=== PATIENT | male | born 1940 | race Caucasian/White ===

== ENCOUNTER → 2016-11-26 | Outpatient (CLI) | payer MEDICARE ==
[2016-11-25 11:07] VITALS: BP 137/80
[~2016-11-26] MED LIST: ASCO10002 PO; ASCO10006 PO; ATEN1TAB3 PO; CA C1TAB36 PO; CALC500T27 PO; CHOL400T2 PO; DABI150C PO; ESOM40CA PO; FURO40TA4 PO; GABA-585 PO; GADOBUTROL 10 MMOL/10 ML VIAL IV ONE; GINK120C PO; GLUC1CAP14 PO; GLUC1CAP57 PO; HYDR-2672 PO; HYDR-2762 PO; IBUP200T77 PO; ISOS30TA4 PO; KRIL1CAP PO; LACT1CAP21 PO; LANS15CA5 PO; LECI400C PO; LYSI500T PO; MAGIC MOUTHWASH; MULT1TAB52 PO; OMEG1CAP6 PO; OMEG500C PO; OXYC-250 PO; OXYC1TAB9 PO; PIPE4.5F2 IV; POTA10CA PO; POTA10TA10 PO; SELE200T10 PO; SUCR1ORA2 PO; TRAM50TA PO; VITA10004 PO; VITA1CAP PO; VITA400C34 PO; VITA400C6 PO; [UNRECOGNIZED DRUG - CODE] MM
--- NOTE | 2016-11-26 14:20 | KCIC ---
PROCEDURE MRI brain without and with contrast. HISTORY Pituitary macroadenoma TECHNIQUE Multiplanar, multi sequential pre and post-contrast imaging was performed of the head and pituitary gland. Contrast: 9 cc Gadavist COMPARISON June 27, 2014 noncontrast exam FINDINGS No appreciable residual enhancing pituitary tissue is identified, some cystic signal abnormality of the sella with slight suprasellar extent on the left as seen previously. This is slightly hyperintense comparing with other CSF signal intensity on the VIBE sequence. This is more hyperintense on the FLAIR sequence than previously. This measures on the order of 1.2 cm cc by 0.9 cm AP by 1.4 cm transverse. There is no evidence of recent infarct or intracranial mass effect. There is again mild involutional change. There are few small foci of T2 and FLAIR hyperintense signal abnormality of the supratentorial white matter mostly unchanged other than new small focus of the right connor radiata extending to margin of the right lateral ventricle. There is no new midline shift or extra-axial fluid collection. There has been lens surgery bilaterally. There is increased moderate to severe mid to anterior ethmoid air cell mucosal thickening, also increased moderate maxillary sinus mucosal thickening bilaterally greater on the right. There is increased mild sphenoid sinus and increased mild to moderate bilateral frontal sinus mucosal thickening. There is preservation of the major arterial intracranial flow voids at the skull base. Mastoid air cells are overall aerated, mild thickening bilaterally. Cerebellar tonsils are normal in location. There is preservation of the marrow signal of the clivus. IMPRESSION 1. No new enhancing sellar or suprasellar mass is identified. There is again cystic replacement in the region of the sella with suprasellar extent, now relative increased FLAIR signal which is nonspecific although may be due to increased proteinaceous component. 2. A few small foci of nonenhancing T2 and FLAIR hyperintense signal abnormality of the supratentorial white matter may be due to chronic microvascular ischemic disease, new small focus of the right connor radiata. 3. There is increased paranasal sinus mucosal thickening as stated Electronically signed by: Wesly Pozo MD (Nov 26, 2016 14:19:17)
== END | disposition home or self-care (01) ==
LOC: KCIC MRI 12:09
PROVIDERS: ATTEND Psychiatry & Neurology Neurology
DX: D35.2 Benign neoplasm of pituitary gland (principal)
CPT/HCPCS: 70553; 82565; A9585

== ENCOUNTER → 2017-02-17 | Outpatient (CLI) | payer MEDICARE ==
[2017-01-20 09:54] VITALS: BP 135/77
[~2017-02-17] MED LIST changes: -GADOBUTROL 10 MMOL/10 ML VIAL IV ONE
--- NOTE | 2017-02-17 13:46 | CARD ---
APPROVED REPORT EXAM: Two-dimensional and M-mode echocardiogram with Doppler and color Doppler. Other Information Quality : Average Rhythm : NSR INDICATION Cardiac Disease: CAD 2D DIMENSIONS RVDd3.5 (2.9-3.5cm)Left Atrium(2D)3.5 (1.6-4.0cm) IVSd1.0 (0.7-1.1cm)Aortic Root(2D)3.3 (2.0-3.7cm) LVDd3.6 (3.9-5.9cm)LVOT Diameter2.2 (1.8-2.4cm) PWd1.0 (0.7-1.1cm)LVDs2.5 (2.5-4.0cm) FS (%) 31.1 %SV31.6 ml LVEF(%)59.8 (>50%) Aortic Valve AoV Peak Nito.119.3cm/sAoV VTI28.9cm AO Peak GR.5.7mmHgLVOT Peak Nito.121.6cm/s LVOT VTI 30.68cmAO Mean GR.3mmHg VITA (VMAX)3.62mc1OYB (VTI)4.05cm2 Mitral Valve MV E Jkapftus23.7cm/sMV DECEL SFUF909eb MV A Rgfnpyzx043.4cm/sMV E Mean Gr.2mmHg MV GDR899vuN/A Ratio0.7 MV A Voinedtx674lmXPV (PHT)2.12cm2 TDI E/Lateral E'10.5E/Medial E'15.1 Pulmonary Valve PV Peak Llfivzbo57.6cm/sPV Peak Grad.3mmHg RVOT VTI11.2cm Tricuspid Valve TR P. Eqggtlzz574vn/sRAP CKTRSUJW1euXx TR Peak Gr.62vqAaJOPP14nyNw LEFT VENTRICLE The left ventricle is normal size. There is normal left ventricular wall thickness. Left ventricle sy stolic function is normal. The Ejection Fraction is 55-60%. There is normal LV segmental wall motion. Tissue Doppler imaging reveals mild left ventricular diastolic dysfunction. There is no ventricular septal defect visualized. RIGHT VENTRICLE The right ventricle is normal size. The right ventricular systolic function is mildly decreased. ATRIA The left atrium size is normal. The right atrium size is normal. The interatrial septum is intact wit h no evidence for an atrial septal defect or patent foramen ovale as noted on 2-D or Doppler imaging. AORTIC VALVE The aortic valve is moderately calcified but opens well. The aortic valve is trileaflet. Doppler and Color Flow revealed no significant aortic regurgitation. There is no significant aortic valvular sten osis. MITRAL VALVE Mitral annular calcification is mild. There is no mitral valve stenosis. Doppler and Color Flow revea led mild mitral regurgitation. TRICUSPID VALVE The tricuspid valve is normal in structure and function. Doppler and Color Flow revealed trace tricus pid regurgitation. The PA pressure was estimated at 23 mmHg. There is no tricuspid valve stenosis. PULMONIC VALVE The pulmonic valve is not well visualized. Doppler and Color Flow revealed no pulmonic valvular regur gitation. There is no pulmonic valvular stenosis. GREAT VESSELS The aortic root is normal in size. The IVC is normal in size and collapses >50% with inspiration. PERICARDIAL EFFUSION There is no evidence of significant pericardial effusion. Critical Notification Critical Value: No <Conclusion> Left ventricle systolic function is normal. The Ejection Fraction is 55-60%. There is normal LV segmental wall motion. Tissue Doppler imaging reveals mild left ventricular diastolic dysfunction. The right ventricular systolic function is mildly decreased. Doppler and Color Flow revealed mild mitral regurgitation.
== END | disposition home or self-care (01) ==
LOC: ECHO 07:33
PROVIDERS: ATTEND Internal Medicine Cardiovascular Disease
DX: I25.10 Atherosclerotic heart disease of native coronary artery without angina pectoris (principal); I08.3 Combined rheumatic disorders of mitral, aortic and tricuspid valves
CPT/HCPCS: 93306

== ENCOUNTER → 2017-08-16 | Outpatient (CLI) | payer MEDICARE ==
[2017-01-20 09:54] VITALS: BP 135/77
[~2017-08-16] MED LIST changes: +ASCO100020 PO; -ASCO10006 PO; -CALC500T27 PO; +CALC500T30 PO; -GLUC1CAP14 PO; +GLUCOSAMINE 1,1 EACH PO; -HYDR-2672 PO; +HYDR-2766 PO; -OXYC-250 PO; +OXYC-328 PO; -POTA10CA PO; -POTA10TA10 PO; +POTA10TA12 PO; +POTASSIUM CHLO10 MEQ PO; +REGADENOSON 0.4 MG/5 ML DISP.SYRIN. IV ONE; -SUCR1ORA2 PO; +SUCR1ORA5 PO; +VITA100022 PO; -VITA10004 PO; -VITA400C34 PO; +VITA400C37 PO
[2017-08-16] MEDS: REGADENOSON 0.4 MG/5 ML DISP.SYRIN. IV ONE (09:13)
--- NOTE | 2017-08-16 11:51 | RAD ---
APPROVED REPORT Test Type: Pharmacological Stress Nurse/Tech: [facility] Test Indications: CAD Cardiac History: HTN, CAD Medications: See EMR Medical History: See EMR Resting ECG: SB w/ 1 degree AVB Resting Heart Rate: 58 bpm Resting Blood Pressure: 146/76mmHg Pretest Chest Pain: No chest pain Nurse/Tech Notes S1,S2, denied CP, SOA, lungs CTA Consent: The procedure was explained to the patient in lay terms. Informed consent was witnessed. Fernando eout was entered into [employer]. History and Stress Test performed by [facility]. Details Pharmacologic stress testing was performed using 0.4mg per 5ml of regadenoson given intravenously ove r 7-10 seconds. Stress Symptoms slight tightness in midsternal chest, quickly subsided POST EXERCISE Reason for Termination: Infusion complete Max HR: 78 bpm Max Blood Pressure: 158/82mmHg Blood Pressure response to exercise: Normal blood pressure response during stress. Heart Rate response to exercise: Normal Chest Pain: No. Arrhythmia: No. ST Change: No. INTERPRETATION Stress EKG Conclusion: Baseline EKG showed sinus rhythm. No ischemic changes at peak stress. No arr hythmias. Imaging Protocol IMAGE PROTOCOL: Rest Tc-99m/stress Tc-99m 1 day Rest: Stress: Viability: Radiopharm.Tc99m AucxbagjaXe74y Sestamibi Dose10.4mCi 32.3mCi Duration 15min. 10min. Img Date 08/16/2017 08/16/2017 Inj-Img Lflt24adk. 60min. Rest Admin Site:IV - Right AntecubitalAdministrator:MOMO Bello Stress Admin Site: IV - Right AntecubitalAdministrator: Julienne Montero, RT (R)(N) STRESS DATA End Diast. Vol.65.0mlAv. Heart Rate59.0bpm End Syst. Vol.7.0mlCO Index BSA0.0L/min Myocardial Sqvy708.0gEject. Vphhbnbf59.0% Stress Rates Pk. Fill Rate2.53EDV/secLVtime Pk. Fill 152.57msec Pk. Empty Rate3.78ESV/secLVtime Pk. Dqxmb566.34msec 11/16 Pk. Fill1.59EDV/sec Stress Scores Regional WT1.00Summed WT6.00 Regional WM0.00Summed WM0.00 Study quality was good. Left Ventricular size was Normal at Rest and Stress. Lung uptake was Normal. Left Ventricular ejection fraction is 89%. The rest and stress images show normal perfusion, normal contraction and thickening. LV Perf. Quant 17 Seg. SSS2.00 17 Seg. SRS4.00 17 Seg. SDS0.00 Stress Defect Extent (% LAD)0.00Rest Defect Extent (% LAD)0.00Rev. Defect Extent (% LAD)0.00 Stress Defect Extent (% LCX) 18.80Rest Defect Extent (% LCX)22.50Rev. Defect Extent (% LCX)0.00 Stress Defect Extent (% RCA)0.00Rest Defect Extent (% RCA)0.00Rev. Defect Extent (% RCA)0.00 Stress Defect Extent (% ENRIQUE)4.60Rest Defect Extent (% ENRIQUE)5.70Rev. Defect Extent (% ENRIQUE)0.00 Conclusion 1. Regadenoson cardioisotope stress test did not show any evidence of ischemia or infarct. 2. Normal left ventricular systolic function with ejection fraction calculated at 89%. 3. Low risk for cardiac events.
== END | disposition home or self-care (01) ==
LOC: NM 07:23
PROVIDERS: ATTEND Internal Medicine Cardiovascular Disease
DX: I25.10 Atherosclerotic heart disease of native coronary artery without angina pectoris (principal); I49.5 Sick sinus syndrome; I10 Essential (primary) hypertension; Z79.01 Long term (current) use of anticoagulants
CPT/HCPCS: 78452; 93017; 96374; 96375; 96376; A9500; J2785

== ENCOUNTER → 2017-08-18 | Outpatient (CLI) | payer MEDICARE ==
[2017-01-20 09:54] VITALS: BP 135/77
[~2017-08-18] MED LIST changes: -REGADENOSON 0.4 MG/5 ML DISP.SYRIN. IV ONE
== END | disposition home or self-care (01) ==
LOC: PMGWOUND 07:51
PROVIDERS: ATTEND Emergency Medicine Undersea and Hyperbaric Medicine
DX: L97.214 Non-pressure chronic ulcer of right calf with necrosis of bone (principal); I25.10 Atherosclerotic heart disease of native coronary artery without angina pectoris; I10 Essential (primary) hypertension
CPT/HCPCS: 99214

== ENCOUNTER → 2018-01-12 | Outpatient (CLI) | payer MEDICARE | END | disposition home or self-care (01) | LOC: PMGWOUND 08:54 | DX: L97.214 Non-pressure chronic ulcer of right calf with necrosis of bone (principal); I25.10 Atherosclerotic heart disease of native coronary artery without angina pectoris; I10 Essential (primary) hypertension; I49.5 Sick sinus syndrome; Z79.01 Long term (current) use of anticoagulants | CPT/HCPCS: 99214 ==

== ENCOUNTER → 2018-08-23 | Outpatient (CLI) | payer MEDICARE ==
[2017-01-20 09:54] VITALS: BP 135/77
[~2018-08-23] MED LIST changes: +OXYC-411 PO; -OXYC1TAB9 PO; -POTASSIUM CHLO10 MEQ PO
--- NOTE | 2018-08-23 09:54 | CARD ---
MR#: [id number] Date of Study: 08/23/2018 Ordering Physician: CED CARDENAS, Referring Physician: CED CARDENAS Tech: Subha Washington APPROVED REPORT EXAM: Two-dimensional and M-mode echocardiogram with Doppler and color Doppler. Other Information Quality : Average Technically limited study due to body habitus. INDICATION CAD RISK FACTORS Hypertension 2D DIMENSIONS Left Atrium(2D)3.3 (1.6-4.0cm)IVSd1.3 (0.7-1.1cm) Aortic Root(2D)3.3 (2.0-3.7cm)LVDd4.3 (3.9-5.9cm) LVOT Diameter2.0 (1.8-2.4cm)PWd1.2 (0.7-1.1cm) IVSs2.9 (0.8-1.2cm) Aortic Valve AoV Peak Nito.137.7cm/sAoV VTI31.2cm AO Peak GR.7.6mmHgLVOT Peak Nito.103.6cm/s LVOT VTI 28.00cmAO Mean GR.4mmHg VITA (VMAX)1.62tj3XFW (VTI)2.95cm2 Mitral Valve MV E Xgdyjgce76.0cm/sMV DECEL MFEU385xt MV A Yakssauj139.2cm/sMV TQJ84gb E/A Ratio0.7MVA (PHT)2.91cm2 TDI E/Lateral E'11.9E/Medial E'12.4 Pulmonary Valve PV Peak Eksaolxg971.4cm/sPV Peak Grad.4mmHg Tricuspid Valve TR P. Xaiuhpag500sb/sRAP LLUCBGZG43spOy TR Peak Gr.60ixExSZSP10vjNu LEFT VENTRICLE The left ventricle is normal size. There is borderline concentric left ventricular hypertrophy. The l eft ventricular systolic function is normal and the ejection fraction is within normal range. The Eje ction Fraction is >55%. There is normal LV segmental wall motion. Transmitral Doppler flow pattern is Grade I-abnormal relaxation pattern. No left ventricle thrombus noted on this study. RIGHT VENTRICLE The right ventricle is normal size. There is normal right ventricular wall thickness. The right ventr icular systolic function is normal. ATRIA The left atrium size is normal. The right atrium size is normal. The interatrial septum is intact wit h no evidence for an atrial septal defect or patent foramen ovale as noted on 2-D or Doppler imaging. AORTIC VALVE The aortic valve is mildly and moderately calcified with mildly restricted leaflet motion. Doppler an d Color Flow revealed trace aortic regurgitation. There is no significant aortic valvular stenosis. MITRAL VALVE The mitral valve is thickened but opens well. There is no mitral valve stenosis. Doppler and Color-fl ow revealed trace mitral regurgitation. TRICUSPID VALVE The tricuspid valve is not well visualized. Doppler and Color Flow revealed trace tricuspid regurgita tion. There is no tricuspid valve stenosis. PULMONIC VALVE The pulmonic valve is not well visualized. Doppler and Color Flow revealed no pulmonic valvular regur gitation. There is no pulmonic valvular stenosis. GREAT VESSELS The aortic root is normal in size. The IVC is normal in size and collapses <50% with inspiration. PERICARDIAL EFFUSION There is no evidence of significant pericardial effusion. Critical Notification Critical Value: No <Conclusion> The left ventricular systolic function is normal and the ejection fraction is within normal range. Th e Ejection Fraction is >55%. There is normal LV segmental wall motion. Signed by : Andre Chapin, Electronically Approved : 08/23/2018 09:53:15
== END | disposition home or self-care (01) ==
LOC: ECHO 07:57
PROVIDERS: ATTEND Internal Medicine Cardiovascular Disease
DX: I25.10 Atherosclerotic heart disease of native coronary artery without angina pectoris (principal); I10 Essential (primary) hypertension
CPT/HCPCS: 93306

== ENCOUNTER → 2018-08-29 | Outpatient (CLI) | payer MEDICARE ==
[2017-01-20 09:54] VITALS: BP 135/77
--- NOTE | 2018-08-29 14:58 | RAD ---
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 FINDINGS: There is no fracture, dislocation, or acute osseous abnormality identified. Joints and soft tissues are grossly unremarkable. A small calcaneal bone spur is present. No radiopaque foreign bodies are seen. No dystrophic calcifications are evident. The ankle mortise is symmetric. IMPRESSION: 1. No acute osseous abnormality. Electronically signed by: Ten Amos MD (08/29/2018 2:55 PM) [facility]
--- NOTE | 2018-08-29 16:54 | RAD ---
DUPLEX SONOGRAPHY OF THE PERIPHERAL ARTERIAL SYSTEM OF THE RIGHT LOWER EXTREMITY Clinical indications: Nonhealing wound of the right lower extremity. Findings: Duplex sonography of the peripheral arterial system of the right lower extremity including dos santos scale and color flow and spectral waveform analysis was performed. There is calcified plaque within the femoral and popliteal arteries. Biphasic waveforms are seen. No occlusive disease is seen. No flow-limiting stenosis is identified. The measurements were performed using the NASCET criteria. Peak systolic flow velocities are as follows: Right leg: common femoral artery- 109 cm/sec, profunda femoral artery -67 cm/sec, proximal superficial femoral artery -74 cm/sec, mid superficial femoral artery -50 cm/sec, distal superficial femoral artery- 52 cm/sec, popliteal artery -75 cm/sec, posterior tibial artery- 114 cm/sec, peroneal artery- 68 cm/sec, anterior tibial artery- 42 cm/sec, dorsalis pedis artery -46 cm/sec. Impression: No occlusive disease or flow-limiting stenosis is evident. Electronically signed by: Dru Mai MD (08/29/2018 4:50 PM) [facility]
== END | disposition home or self-care (01) ==
LOC: PMGWOUND 13:03
PROVIDERS: ATTEND Emergency Medicine Undersea and Hyperbaric Medicine
DX: I87.331 Chronic venous hypertension (idiopathic) with ulcer and inflammation of right lower extremity (principal); L97.214 Non-pressure chronic ulcer of right calf with necrosis of bone; I25.10 Atherosclerotic heart disease of native coronary artery without angina pectoris
CPT/HCPCS: 73610; 93923; 99214; G0463

== ENCOUNTER → 2018-09-04 | Outpatient (CLI) | payer MEDICARE ==
[2017-01-20 09:54] VITALS: BP 135/77
== END | disposition home or self-care (01) ==
LOC: PMGWOUND 11:42
PROVIDERS: ATTEND Emergency Medicine Undersea and Hyperbaric Medicine
DX: I87.331 Chronic venous hypertension (idiopathic) with ulcer and inflammation of right lower extremity (principal); L97.212 Non-pressure chronic ulcer of right calf with fat layer exposed
CPT/HCPCS: 99213

== ENCOUNTER → 2018-09-12 | Outpatient (CLI) | payer MEDICARE ==
[2017-01-20 09:54] VITALS: BP 135/77
== END | disposition home or self-care (01) ==
LOC: PMGWOUND 09:00
PROVIDERS: ATTEND Emergency Medicine Undersea and Hyperbaric Medicine
DX: I87.331 Chronic venous hypertension (idiopathic) with ulcer and inflammation of right lower extremity (principal); L97.212 Non-pressure chronic ulcer of right calf with fat layer exposed; I10 Essential (primary) hypertension; I25.10 Atherosclerotic heart disease of native coronary artery without angina pectoris
CPT/HCPCS: 99214; G0463

== ENCOUNTER → 2018-09-18 | Outpatient (CLI) | payer MEDICARE ==
[2017-01-20 09:54] VITALS: BP 135/77
== END | disposition home or self-care (01) ==
LOC: PMGWOUND 08:57
PROVIDERS: ATTEND Emergency Medicine Undersea and Hyperbaric Medicine
DX: I87.331 Chronic venous hypertension (idiopathic) with ulcer and inflammation of right lower extremity (principal); L97.212 Non-pressure chronic ulcer of right calf with fat layer exposed; I25.10 Atherosclerotic heart disease of native coronary artery without angina pectoris
CPT/HCPCS: 99213; 99214; G0463

== ENCOUNTER → 2018-09-25 | Outpatient (CLI) | payer MEDICARE ==
[2017-01-20 09:54] VITALS: BP 135/77
== END | disposition home or self-care (01) ==
LOC: PMGWOUND 09:06
PROVIDERS: ATTEND Emergency Medicine Undersea and Hyperbaric Medicine
DX: I87.331 Chronic venous hypertension (idiopathic) with ulcer and inflammation of right lower extremity (principal); L97.212 Non-pressure chronic ulcer of right calf with fat layer exposed
CPT/HCPCS: 29581

== ENCOUNTER → 2018-09-28 | Outpatient (CLI) | payer MEDICARE ==
[2017-01-20 09:54] VITALS: BP 135/77
== END | disposition home or self-care (01) ==
LOC: PMGWOUND 11:27
PROVIDERS: ATTEND Emergency Medicine Undersea and Hyperbaric Medicine
DX: I87.331 Chronic venous hypertension (idiopathic) with ulcer and inflammation of right lower extremity (principal); L97.212 Non-pressure chronic ulcer of right calf with fat layer exposed; I25.10 Atherosclerotic heart disease of native coronary artery without angina pectoris
CPT/HCPCS: 29581

== ENCOUNTER → 2018-10-03 | Outpatient (CLI) | payer MEDICARE ==
[2017-01-20 09:54] VITALS: BP 135/77
== END | disposition home or self-care (01) ==
LOC: PMGWOUND 07:48
PROVIDERS: ATTEND Emergency Medicine Undersea and Hyperbaric Medicine
DX: I87.331 Chronic venous hypertension (idiopathic) with ulcer and inflammation of right lower extremity (principal); L97.212 Non-pressure chronic ulcer of right calf with fat layer exposed; I25.10 Atherosclerotic heart disease of native coronary artery without angina pectoris
CPT/HCPCS: 99214; G0463

== ENCOUNTER → 2018-10-10 | Outpatient (CLI) | payer MEDICARE ==
[2017-01-20 09:54] VITALS: BP 135/77
[~2018-10-10] MED LIST changes: -HYDR-2762 PO; +HYDR-2765 PO; -HYDR-2766 PO; +HYDR-2769 PO; -OXYC-328 PO; +OXYC1TAB22 PO
== END | disposition home or self-care (01) ==
LOC: PMGWOUND 07:54
PROVIDERS: ATTEND Emergency Medicine Undersea and Hyperbaric Medicine
DX: I87.331 Chronic venous hypertension (idiopathic) with ulcer and inflammation of right lower extremity (principal); L97.212 Non-pressure chronic ulcer of right calf with fat layer exposed; I25.10 Atherosclerotic heart disease of native coronary artery without angina pectoris
CPT/HCPCS: 99214; G0463

== ENCOUNTER → 2018-10-31 | Outpatient (CLI) | payer MEDICARE ==
[2017-01-20 09:54] VITALS: BP 135/77
== END | disposition home or self-care (01) ==
LOC: PMGWOUND 09:03
PROVIDERS: ATTEND Emergency Medicine Undersea and Hyperbaric Medicine
DX: L97.818 Non-pressure chronic ulcer of other part of right lower leg with other specified severity (principal); I10 Essential (primary) hypertension
CPT/HCPCS: 99213

== ENCOUNTER 2019-01-20 15:04 | Inpatient (IN) | payer MEDICARE ==
[~2019-01-20] VITALS: Ht 182.9 cm; Wt 93.0 kg
[2019-01-20] MEDS ORDERED: DIPHTH,PERTUSS(ACELL),TET TOX 0.5 ML DISP.SYRIN. VAX IM ONE (16:00)
[2019-01-20] MEDS ORDERED: LIDOCAINE 1% Multi-Dose 20 ML VIAL. INJ ONE (16:00)
--- NOTE | 2019-01-20 16:25 | PHYS DOC ---
Past Medical History Past Medical History: Cancer, DVT, High Cholesterol, Hypertension Past Surgical History: Cholecystectomy, Other Additional Past Surgical Histo: HERNIA, BILAT ROTATOR CUFFS, CANCER, KNEE Alcohol Use: None Drug Use: None Adult General Chief Complaint Chief Complaint: LACERATION/AVULSION HPI HPI Patient is a 78 year old male who presents complaining of head injury. Patient slipped on wet bricks this afternoon, less than an hour prior to arrival, hitting his head. There was no loss of consciousness. No nausea, no change in vision. No syncopal episode. No chest pain or palpitations area did he also complains of some left knee discomfort with the fall.[] Review of Systems Review of Systems Constitutional: Denies fever or chills [] Eyes: Denies change in visual acuity, redness, or eye pain [] HENT: Denies nasal congestion or sore throat [] Respiratory: Denies cough or shortness of breath [] Cardiovascular: No chest pain or palpitations[] GI: Denies abdominal pain, nausea, vomiting, bloody stools or diarrhea [] : Denies dysuria or hematuria [] Musculoskeletal: Denies back pain, see history of present illness[] Integument: Denies rash or skin lesions, see history of present illness regarding the laceration [] Neurologic: Denies headache, focal weakness or sensory changes [] Endocrine: Denies polyuria or polydipsia [] All other systems were reviewed and found to be within normal limits, except as documented in this note. Current Medications Current Medications Current Medications Medications (Trade) Dose Ordered Sig/Chloé Start Time Stop Time Status Last Admin Dose Admin Diphtheria/ Tetanus/Acell Pertussis (Boostrix) 0.5 ml ONCE ONCE 01/20/19 16:00 01/20/19 16:01 DC 01/20/19 16:40 0.5 ML Lidocaine HCl (Lidocaine 1% 20ml Vial) 20 ml 1X ONCE 01/20/19 16:00 01/20/19 16:01 DC 01/20/19 16:38 20 ML Allergies Allergies Allergies Coded Allergies Type Severity Reaction Last Updated Verified No Known Medication Allergies Allergy Unknown 11/09/16 Yes Physical Exam Physical Exam Constitutional: Well developed, well nourished, no acute distress, non-toxic appearance. [] HENT: Normocephalic, laceration that is transverse across the top of his head., bilateral external ears normal, TMs are clear, no blood, no fluid, oropharynx moist, no oral exudates, nose normal. [] Eyes: PERRLA, EOMI, conjunctiva normal, no discharge. [] Neck: Normal range of motion, no tenderness, supple, no stridor. [] Cardiovascular:Heart rate regular rhythm, no murmur [] Lungs & Thorax: Bilateral breath sounds clear to auscultation [] Abdomen: Bowel sounds normal, soft, no tenderness, no masses, no pulsatile masses. [] Skin: Warm, dry, no erythema, no rash. [] Back: No tenderness, no CVA tenderness. [] Extremities: tenderness diffusely around the left knee, full active range of motion, no laxity. A joint above and below the left knee were evaluated and were normal. no cyanosis, no clubbing, ROM intact, no edema. [] Neurologic: Alert and oriented X 3, normal motor function, normal sensory function, no focal deficits noted. [] Psychologic: Affect normal, judgement normal, mood normal. [] Current Patient Data Vital Signs Vital Signs Date Time Temp Pulse Resp B/P (MAP) Pulse Ox O2 Delivery O2 Flow Rate FiO2 01/20/19 15:35 96.7 84 18 168/96 (120) 94 Room Air 96.7 EKG EKG [] Radiology/Procedures Radiology/Procedures Left knee x-rays 3 views HISTORY: Left knee pain after a fall. FINDINGS: Only apparent on the oblique view there is a transverse linear subcortical lucency of the medial tibial plateau diameter apparent on the oblique view, and not apparent on the AP or lateral views, it is uncertain if this is a artifact along the surface of an osteophyte of the tibial plateau or if this represents a subcortical acute traumatic fracture. Femoral condyles, patella and fibula intact at the knee. Ossification cortex nonweightbearing medial femoral condyle near the attachment of the medial collateral ligament likely due to old injury. IMPRESSION: Transverse linear subcortical lucency medial tibial plateau on the apparent on the oblique view, a fracture is not excluded, as described above. CT head without contrast. CT cervical spine without contrast. PQRS statement: CT scans at this facility use dose reduction including either automated exposure control, iterative reconstructions, and /or weight based radiation dosing via mA and kV modification when appropriate to reduce radiation dose to as low as reasonably achievable. HISTORY: Head pain and neck pain after fall. Head injury. TECHNIQUE: Noncontrast imaging of the head and cervical spine with multiplanar reconstructions was acquired. CT head findings: No intracranial hemorrhage, mass, hydrocephalus, extra-axial fluid collections or infarction. There is a laceration of the frontal scalp at the vertex, no scalp hematoma evident. No skull fracture or calvarial fracture. Imaged mastoids and orbits are intact. IMPRESSION: No acute intracranial CT abnormality. Frontal scalp laceration. No calvarial fracture. CT cervical spine findings: There is an acute traumatic nondisplaced fracture of the right C1 lamina which could be in the region where the right vertebral artery crosses, and arterial injury could be further assessed with CT angiography. There is a transverse oriented acute type II C2 dens fracture which is posterior distracted by 1.5 mm. There is mild hyperdense thickening of the C1-C2 joint capsule which could be degenerative or could represent mild intracapsular hemorrhage, no gross evidence of bony canal stenosis. The remainder of the cervical spine demonstrates no fracture. There is 2 mm anterolisthesis C6 on C7 associated with disc disease and facet arthritis. Disc bulges, endplate, uncovertebral facet spurs with spinal canal and neural foraminal stenoses at several levels. Lung apices and paraspinal tissues are unremarkable. IMPRESSION: 1. Acute traumatic type II C2 dens fracture as described above. 2. Acute traumatic nondisplaced right C1 lamina fracture as described above.[] Course & Med Decision Making Course & Med Decision Making Pertinent Labs and Imaging studies reviewed. (See chart for details) ED course: Patient arrived, was placed in a cervical collar and placed in bed, and tolerated exam well. He was transported to and from [place] with any complications. He had his scalp laceration repaired with any complications. After the return of the CT findings, consultation was made with the neurosurgeon who requested a CTA of the neck due to the course of the vertebral artery which was ordered along with laboratory studies. Due to the findings on the knee x-ray a CT of the knee was additionally ordered and consultation was made with orthopedic surgery service. Consultation was made with hospitalist service for admission and they graciously admitted him. Findings were discussed with patient and family who voiced understanding. All questions were answered.[] Dragon Disclaimer Dragon Disclaimer This electronic medical record was generated, in whole or in part, using a voice recognition dictation system. Departure Departure Impression: Primary Impression: C1 cervical fracture Additional Impressions: Dens fracture Tibial plateau fracture Disposition: 09 ADMITTED INPATIENT Admitting Physician: Other Condition: IMPROVED Referrals: JASON EDWARDS MD (PCP) Laceration Repair Lac Repair Indication: [] Procedure: The patient was placed in the appropriate position and anesthesia around the was provided with 1% lidocaine]. The area was then cleansed. The laceration was closed with 6 narda. Total repaired wound length: 3.5 cm. Other Items: [OTHER ITEMS] The patient tolerated the procedure well. Complications: None. Problem Qualifiers Primary Impression: C1 cervical fracture Encounter type: initial encounter Fracture type: closed Fracture morphology : unspecified fracture morphology Fracture alignment: nondisplaced Qualified Codes: S12.001A - Unspecified nondisplaced fracture of first cervical vertebra, initial encounter for closed fracture Additional Impressions: Dens fracture Encounter type: initial encounter Fracture type: closed Qualified Codes: S12.100A - Unspecified displaced fracture of second cervical vertebra, initial encounter for closed fracture Tibial plateau fracture Encounter type: initial encounter Fracture type: closed Laterality: left Qualified Codes: S82.142A - Displaced bicondylar fracture of left tibia, initial encounter for closed fracture TG FITZGERALD DO Jan 20, 2019 16:25
--- NOTE | 2019-01-20 16:46 | RAD ---
CT head without contrast. CT cervical spine without contrast. PQRS statement: CT scans at this facility use dose reduction including either automated exposure control, iterative reconstructions, and /or weight based radiation dosing via mA and kV modification when appropriate to reduce radiation dose to as low as reasonably achievable. HISTORY: Head pain and neck pain after fall. Head injury. TECHNIQUE: Noncontrast imaging of the head and cervical spine with multiplanar reconstructions was acquired. CT head findings: No intracranial hemorrhage, mass, hydrocephalus, extra-axial fluid collections or infarction. There is a laceration of the frontal scalp at the vertex, no scalp hematoma evident. No skull fracture or calvarial fracture. Imaged mastoids and orbits are intact. IMPRESSION: No acute intracranial CT abnormality. Frontal scalp laceration. No calvarial fracture. CT cervical spine findings: There is an acute traumatic nondisplaced fracture of the right C1 lamina which could be in the region where the right vertebral artery crosses, and arterial injury could be further assessed with CT angiography. There is a transverse oriented acute type II C2 dens fracture which is posterior distracted by 1.5 mm. There is mild hyperdense thickening of the C1-C2 joint capsule which could be degenerative or could represent mild intracapsular hemorrhage, no gross evidence of bony canal stenosis. The remainder of the cervical spine demonstrates no fracture. There is 2 mm anterolisthesis C6 on C7 associated with disc disease and facet arthritis. Disc bulges, endplate, uncovertebral facet spurs with spinal canal and neural foraminal stenoses at several levels. Lung apices and paraspinal tissues are unremarkable. IMPRESSION: 1. Acute traumatic type II C2 dens fracture as described above. 2. Acute traumatic nondisplaced right C1 lamina fracture as described above. Critical results called to Dr. Hinkle at 1 4:42 PM January 20, 2019. Electronically signed by: Amrit Cruz MD (01/20/2019 4:43 PM) [facility]
--- NOTE | 2019-01-20 16:58 | RAD ---
Left knee x-rays 3 views HISTORY: Left knee pain after a fall. FINDINGS: Only apparent on the oblique view there is a transverse linear subcortical lucency of the medial tibial plateau diameter apparent on the oblique view, and not apparent on the AP or lateral views, it is uncertain if this is a artifact along the surface of an osteophyte of the tibial plateau or if this represents a subcortical acute traumatic fracture. Femoral condyles, patella and fibula intact at the knee. Ossification cortex nonweightbearing medial femoral condyle near the attachment of the medial collateral ligament likely due to old injury. IMPRESSION: Transverse linear subcortical lucency medial tibial plateau on the apparent on the oblique view, a fracture is not excluded, as described above. Electronically signed by: Amrit Cruz MD (01/20/2019 4:56 PM) [id number]
[2019-01-20 17:37] LABS: BASO # 0.1 x10^3/uL (0.0-0.2); BASO % 1 % (0-3); EOS # 0.2 x10^3/uL (0.0-0.7); EOS % 2 % (0-3); HEMATOCRIT 48.2 % (39.0-53.0); HEMOGLOBIN 16.8 g/dL (13.0-17.5); LYMPH # 2.4 x10^3/uL (1.0-4.8); LYMPH % 24 % (24-48); MEAN CORPUSCULAR HEMOGLOBIN 32 pg (25-35); MEAN CORPUSCULAR HGB CONC 35 g/dL (31-37); MEAN CORPUSCULAR VOLUME 93 fL (79-100); MONO # 1.6 x10^3/uL (0.0-1.1); MONO % 15 % (0-9); NEUT # 5.9 x10^3uL (1.8-7.7); NEUT % 58 % (31-73); PLATELET COUNT 160 x10^3/uL (140-400); RED BLOOD COUNT 5.21 x10^6/uL (4.30-5.70); RED CELL DISTRIBUTION WIDTH 13.7 % (11.5-14.5); WHITE BLOOD COUNT 10.2 x10^3/uL (4.0-11.0)
--- NOTE | 2019-01-20 17:42 | PDOC1 ---
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 Patient slipped on wet bricks this afternoon, less than an hour prior to arrival , hitting his head. There was no loss of consciousness. No nausea, no change in vision. No syncopal episode. No chest pain or palpitations area did he also complains of some left knee discomfort with the fall. He received 6 narda across the crown of his head in the ED and underwent trauma series of head and neck revealing an acute traumatic type II C2 dens fracture and nondisplaced right C1 lamina fracture and so was not cleared from his c-collar. He had left knee x-ray revealing a transverse linear subcortical lucency on the medial tibial plateau, which could also be a fracture. He was called for admission for further care of pain and his multiple fractures. Past Medical History Cardiovascular: HTN, Other Pulmonary: No pertinent hx CENTRAL NERVOUS SYSTEM: Periperal neuropathy GI: GERD Heme/Onc: Cancer Hepatobiliary: No pertinent hx Psych: No pertinent hx Musculoskeletal: Osteoarthritis Rheumatologic: No pertinent hx Infectious disease: No pertinent hx Renal/: No pertinent hx Endocrine: No pertinent hx Past Surgical History Past Surgical History: Cholecystectomy, Other Family History Family History: High Cholestrol, Hypertension Social History Smoke: No ALCOHOL: occassional Drugs: None Current Problem List Problem List Problems Medical Problems: (1) C1 cervical fracture Status: Acute (2) Dens fracture Status: Acute (3) Tibial plateau fracture Status: Acute Current Medications Current Medications Current Medications Diphtheria/ Tetanus/Acell Pertussis (Boostrix) 0.5 ml ONCE ONCE VAX IM Last administered on 01/20/19at 16:40; Start 01/20/19 at 16:00; Stop 01/20/19 at 16:01; Status DC Lidocaine HCl (Lidocaine 1% 20ml Vial) 20 ml 1X ONCE INJ Last administered on 01/20/19at 16:38; Start 01/20/19 at 16:00; Stop 01/20/19 at 16:01; Status DC Active Scripts Active Isosorbide Mononitrate Er (Isosorbide Mononitrate) 30 Mg Tab.er.24h 30 Mg PO DAILY Reported Ginkgo Biloba (Ginkgo Biloba Extract) 120 Mg Capsule 120 Mg PO DAILY Calcium + Vit D & K Chew Tab (Ca Carbonate/Vitamin D3/Vit K) 1 Each Tab.chew 1 Each PO DAILY Vitamin C (Ascorbic Acid) 1,000 Mg Tablet 1,000 Mg PO DAILY Vitamin E (Vitamin E (Dl,Tocopheryl Acet)) 400 Unit Capsule 400 Unit PO DAILY Vitamin B Complex 1 Each Capsule 1 Each PO DAILY Lecithin (Lecithin, Soy) 400 Mg Capsule 400 Mg PO DAILY Glucosamine Chondroitin Cap (Glucosamine/Chondroitin Sulf A) 1 Each Capsule 1 Each PO DAILY Everett-3 Krill Oil Softgel (Krill Oil/Everett-3/Dha/Epa) 1 Each Capsule 1 Each PO DAILY Ibuprofen 200 Mg Tablet 200 Mg PO PRN Q6HRS PRN Lansoprazole 15 Mg Capsule.dr 15 Mg PO DAILY Percocet 10-325 Mg Tablet (Oxycodone/Acetaminophen) 1 Each Tablet 1 Tab PO PRN Q6HRS PRN Furosemide 40 Mg Tablet 1 Tab PO DAILY PRN Potassium Chloride 10 Meq Capsule.er 1 Cap PO DAILY Carafate (Sucralfate) 1 Gm/10 Ml Oral.susp 1 Gm PO PRN Gabapentin 100 Mg Capsule 100 Mg PO TID Pradaxa (Dabigatran Etexilate Mesylate) 150 Mg Capsule 1 Cap PO BID Nexium Capsule (Esomeprazole Magnesium) 40 Mg Capsule.dr 1 Cap PO DAILY Tramadol Hcl 50 Mg Tablet 50-100 Mg PO Q4-6HRS PRN Hydrocodone-Apap 10-325 (Hydrocodone Bit/Acetaminophen) 1 Each Tablet 1 Tab PO PRN Q6HRS PRN Vitamin D3 (Cholecalciferol (Vitamin D3)) 400 Unit Tablet 400 Unit PO Multivitamins (Multivitamin) 1 Each Tablet 1 Each PO DAILY Atenolol-Chlorthal 50-25 Tb (Atenolol/Chlorthalidone) 1 Each Tablet 1 Tab PO QODAY Allergies Allergies: Coded Allergies: No Known Medication Allergies (Verified Allergy, Unknown, 11/09/16) ROS General: YES: Fatigue, Malaise; No: Chills, Night Sweats, Appetite, Other PSYCHOLOGICAL ROS: No: Anxiety, Behavioral Disorder, Concentration difficultie , Decreased libido, Depression, Disorientation, Hallucinations, Hostility, Irritablity, Memory difficulties, Mood Swings, Obsessive thoughts, Physical abuse, Sexual abuse, Sleep disturbances, Suicidal ideation, Other Eyes: No Blurry vision, No Decreased vision, No Double vision, No Dry eyes, No Excessive tearing, No Eye Pain, No Itchy Eyes, No Loss of vision, No Photophobia , No Scotomata, No Uses contacts, No Uses glasses, No Other HEENT: YES: Heacaches; No: Visual Changes, Hearing change, Nasal congestion, Nasal discharge, Oral lesions, Sinus pain, Sore Throat, Epistaxis, Sneezing, Snoring, Tinnitus, Vertigo, Vocal changes, Other ALLERGY AND IMMUNOLOGY: No: Hives, Insect Bite Sensitivity, Itchy/Watery Eyes, Nasal Congestion, Post Nasal Drip, Seasonal Allergies, Other Hematological and Lymphatic: No: Bleeding Problems, Blood Clots, Blood Transfusions, Brusing, Night Sweats, Pallor, Swollen Lymph Nodes, Other ENDOCRINE: No: Breast Changes, Galactorrhea, Hair Pattern Changes, Hot Flashes , Malaise/lethargy, Mood Swings, Palpitations, Polydipsia/polyuria, Skin Changes , Temperature Intolerance, Unexpected Weight Changes, Other Breast: No New/Changing Breast Lumps, No Nipple changes, No Nipple discharge, No Other Respiratory: No: Cough, Hemoptysis, Orthopnea, Pleuritic Pain, Shortness of breath, SOB with excertion, Sputum Changes, Stridor, Tachypnea, Wheezing, Other Cardiovascular: No Chest Pain, No Palpitations, No Orthopnea, No Paroxysmal Noc. Dyspnea, No Edema, No Lt Headedness, No Other Gastrointestinal: No Nausea, No Vomiting, No Abdominal Pain, No Diarrhea, No Constipation, No Melena, No Hematochezia, No Other Genitourinary: No Dysuria, No Frequency, No Incontinence, No Hematuria, No Retention, No Discharge, No Urgency, No Pain, No Flank Pain, No Other, No , No , No , No , No , No , No Musculoskeletal: Yes Gait Disturbance, Yes Joint Pain; No Joint Stiffness, No Joint Swelling, No Muscle Pain, No Muscular Weakness, No Pain In:, No Swelling In:, No Other Neurological: Yes Gait Disturbance; No Behavorial Changes, No Bowel/Bladder ControlChng, No Confusion, No Dizziness, No Headaches, No Impaired Coord/balance, No Memory Loss, No Numbness/ Tingling, No Seizures, No Speech Problems, No Tremors, No Visual Changes, No Weakness, No Other Skin: No Dry Skin, No Eczema, No Hair Changes, No Lumps, No Mole Changes, No Mottling, No Nail Changes, No Pruritus, No Rash, No Skin Lesion Changes, No Other, No Acne Physical Exam General: Alert, Oriented X3, Cooperative, mild distress HEENT: PERRLA, EOMI, Mucous membr. moist/pink, Other (6-8 cm coronal scalp laceration midline with 6 narda approximating wound, dried blood. C-collar in place) Lungs: Clear to auscultation, Normal air movement Heart: S1S2, RRR, no gallops, no murmurs Abdomen: Normal bowel sounds, Soft, No tenderness, No hepatosplenomegaly, No masses Rectal Exam: not examined Extremities: No clubbing, No cyanosis, Normal pulses, Other (Left knee swollen) Skin: Other (Right tibia anteriorly with chronic wound and stasis dermatitis discoloration) Neuro: Normal speech, Strength at 5/5 X4 ext, Normal tone, Sensation intact, Cranial nerves 3-12 NL, Reflexes 2+ Psych/Mental Status: Mental status NL, Mood NL Vitals Vitals Vital Signs Date Time Temp Pulse Resp B/P (MAP) Pulse Ox O2 Delivery O2 Flow Rate FiO2 01/20/19 15:35 96.7 84 18 168/96 (120) 94 Room Air 96.7 Labs Labs Laboratory Tests Test 01/20/19 17:25 White Blood Count 10.2 x10^3/uL (4.0-11.0) Red Blood Count 5.21 x10^6/uL (4.30-5.70) Hemoglobin 16.8 g/dL (13.0-17.5) Hematocrit 48.2 % (39.0-53.0) Mean Corpuscular Volume 93 fL (79-100) Mean Corpuscular Hemoglobin 32 pg (25-35) Mean Corpuscular Hemoglobin Concent 35 g/dL (31-37) Red Cell Distribution Width 13.7 % (11.5-14.5) Platelet Count 160 x10^3/uL (140-400) Neutrophils (%) (Auto) 58 % (31-73) Lymphocytes (%) (Auto) 24 % (24-48) Monocytes (%) (Auto) 15 % (0-9) Eosinophils (%) (Auto) 2 % (0-3) Basophils (%) (Auto) 1 % (0-3) Neutrophils # (Auto) 5.9 x10^3uL (1.8-7.7) Lymphocytes # (Auto) 2.4 x10^3/uL (1.0-4.8) Monocytes # (Auto) 1.6 x10^3/uL (0.0-1.1) Eosinophils # (Auto) 0.2 x10^3/uL (0.0-0.7) Basophils # (Auto) 0.1 x10^3/uL (0.0-0.2) Laboratory Tests Test 01/20/19 17:25 White Blood Count 10.2 x10^3/uL (4.0-11.0) Red Blood Count 5.21 x10^6/uL (4.30-5.70) Hemoglobin 16.8 g/dL (13.0-17.5) Hematocrit 48.2 % (39.0-53.0) Mean Corpuscular Volume 93 fL (79-100) Mean Corpuscular Hemoglobin 32 pg (25-35) Mean Corpuscular Hemoglobin Concent 35 g/dL (31-37) Red Cell Distribution Width 13.7 % (11.5-14.5) Platelet Count 160 x10^3/uL (140-400) Neutrophils (%) (Auto) 58 % (31-73) Lymphocytes (%) (Auto) 24 % (24-48) Monocytes (%) (Auto) 15 % (0-9) Eosinophils (%) (Auto) 2 % (0-3) Basophils (%) (Auto) 1 % (0-3) Neutrophils # (Auto) 5.9 x10^3uL (1.8-7.7) Lymphocytes # (Auto) 2.4 x10^3/uL (1.0-4.8) Monocytes # (Auto) 1.6 x10^3/uL (0.0-1.1) Eosinophils # (Auto) 0.2 x10^3/uL (0.0-0.7) Basophils # (Auto) 0.1 x10^3/uL (0.0-0.2) Images Images CT head/neck - 1. Acute traumatic type II C2 dens fracture as described above. 2. Acute traumatic nondisplaced right C1 lamina fracture as described above. Left Knee XR - Transverse linear subcortical lucency medial tibial plateau on the apparent on the oblique view, a fracture is not excluded, as described above. VTE Prophylaxis Ordered VTE Prophylaxis Devices: Yes VTE Pharmacological Prophylaxi: No Assessment/Plan Assessment/Plan A/P: Acute traumatic type II C2 dens fracture and nondisplaced right C1 lamina fracture - cont cervical immobilization. Neurosurgery consulted, this may actually be non-operative if stability can be maintained. Will defer to neurosurgery expertise. Pain control Scalp laceration - well approximated and managed in ED. 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 Can continue wound care inpatient Left knee pain - x-ray revealing a transverse linear subcortical lucency on the medial tibial plateau, which could also be a fracture. CT knee and ortho consultation FEN - LR. NPO for now. Can ADAT once neurosurgery evaluation complete PPX - SCDs, can add heparin after CTA head completed FULL CODE Inpatient for cervical fracture at least 2 midnights. EMERALD CRUM MD Jan 20, 2019 17:42
[2019-01-20 17:44] LABS: CALCIUM 9.5 mg/dL (8.5-10.1); CREATININE 1.1 mg/dL (0.7-1.3); GFR 64.6; POTASSIUM 4.2 mmol/L (3.5-5.1)
[2019-01-20 17:45] LABS: PROTHROMBIN TIME PATIENT 14.4 SEC (11.7-14.0)
[2019-01-20] MEDS ORDERED: ONDANSETRON PF 4 MG/2 ML VIAL. IV PRN (17:45)
[2019-01-20] MEDS ORDERED: ACETAMINOPHEN 325 MG TABLET. PO PRN (17:45)
[2019-01-20 17:50] LABS: ALBUMIN 3.4 g/dL (3.4-5.0); ALBUMIN/GLOBULIN RATIO 0.8 (1.0-1.7); TOTAL BILIRUBIN 0.9 mg/dL (0.2-1.0); TOTAL PROTEIN 7.5 g/dL (6.4-8.2)
[2019-01-20] MEDS ORDERED: IOHEXOL 350 MG/ML 100 ML VIAL. IV ONE (18:15)
[2019-01-20] MEDS ORDERED: CONTRAST GIVEN. MC PRN (18:30)
--- NOTE | 2019-01-20 18:45 | NUR ---
Patient tranferred from the ED to room 438. Family present. Patient alert.
--- NOTE | 2019-01-20 19:00 | NUR ---
Admission: The patient, ABHINAVJune, 78 y/o, M admitted by EMERALD CRUM MD, was given written information regarding hospital policies, unit procedures and contact persons. Patient was transported from ED to room 438 via bed, with at bedside. RN performed a head to toe assessment at that time, VSS, rated pain a 5/10. Orders were received and initiated at that time. Photographs were taken of the laceration to the head with 6 narda, left knee scrapes from fall, and the right leg from previous bone cancer in the past. Valuables were checked and left with the patient in the room.
[2019-01-20 19:30] VITALS: BP 146/76
--- NOTE | 2019-01-20 19:52 | RAD ---
CT angiography neck with contrast. CT left knee without contrast. HISTORY: Cervical spinal fractures. Left tibial fracture, left knee pain after fall. TECHNIQUE: Helical CT imaging of the neck with 100 mL Omnipaque [address] of the left knee without contrast, with 3-D MIP and volume reconstructions of the neck arteries characterize vascular anatomy and pathology. Exposure: One or more of the following individualized dose reduction techniques were utilized for this examination: 1. Automated exposure control 2. Adjustment of the mA and/or kV according to patient size 3. Use of iterative reconstruction technique Stenosis calculations for CT, MR, and conventional angiography are based upon measurements of the distal ICA diameter in accordance with the NASCET methodology. Stenosis calculations for carotid ultrasound studies are derived from validated velocity criteria which are known to correlate with the NASCET methodology. Neck FINDINGS: C1 and C2 vertebral fractures as described in the earlier CT cervical spine report. Osteopenia of the vessels from the aortic arch are patent. There is no dissection, aneurysm, thrombosis, stenosis or occlusion of the cervical vertebral arteries including the right vertebral artery is it crosses the acute traumatic fracture of the right C1 lamina. Minimal calcified plaque right carotid artery bifurcation, there is a tonsillar tortuous loop of the upper cervical right internal carotid artery. Left carotid artery demonstrates no plaque or stenosis. There is no dissection, high-grade stenosis, thrombosis or occlusion of the bilateral cervical carotid and vertebral arteries. Lung apices and soft tissues are unremarkable. IMPRESSION: No significant stenosis, dissection, aneurysm, thrombosis or occlusion of the cervical carotid and vertebral arteries as described above. Cervical fractures of C1 and C2 vertebra again demonstrated as previously described. Left knee findings: The cargo tank mechanic x-ray of the right knee demonstrates a nonspecific sclerotic 6 cm lesion of the proximal tibial metaphysis and lateral tibial plateau. CT images of the left knee demonstrate no fracture of the knee including the medial tibial plateau in question on prior x-rays was likely a artifact of overlapping posterior tibial plateau osteophyte with the underlying bone. The tibia, fibula, femur and patella at the knee demonstrate no fracture or dislocation. There is osteoarthritic change at all 3 compartments with joint space narrowing contemplation osteophytes. There is a minimal joint effusion. There is a probable small Donato's cyst. Dystrophic ossification at the medial collateral ligament attachment the femur likely due to an old injury. There is mild soft tissue edema of the anterior knee. IMPRESSION: 1. No acute osseous injury of the left knee. Osteoarthritis. Mild joint effusion. Small Donato's cyst. 2. House Wirer x-ray of the right knee demonstrates a nonspecific 6 cm sclerotic bone lesion. If the patient has not had prior x-rays assessing this then consider further correlation with dedicated right knee x-rays. Electronically signed by: Amrit Cruz MD (01/20/2019 7:49 PM) [facility]
[2019-01-20] MEDS ORDERED: traMADol 50 MG TABLET PO PRN (20:15)
--- NOTE | 2019-01-20 20:21 | PDOC ---
ORTHO PROGRESS NOTES Vitals Vital Signs Date Time Temp Pulse Resp B/P (MAP) Pulse Ox O2 Delivery O2 Flow Rate FiO2 01/20/19 18:08 64 155/82 (106) 95 Room Air 01/20/19 17:26 20 01/20/19 15:35 96.7 96.7 Labs Laboratory Tests Test 01/20/19 17:25 White Blood Count 10.2 x10^3/uL (4.0-11.0) Red Blood Count 5.21 x10^6/uL (4.30-5.70) Hemoglobin 16.8 g/dL (13.0-17.5) Hematocrit 48.2 % (39.0-53.0) Mean Corpuscular Volume 93 fL (79-100) Mean Corpuscular Hemoglobin 32 pg (25-35) Mean Corpuscular Hemoglobin Concent 35 g/dL (31-37) Red Cell Distribution Width 13.7 % (11.5-14.5) Platelet Count 160 x10^3/uL (140-400) Neutrophils (%) (Auto) 58 % (31-73) Lymphocytes (%) (Auto) 24 % (24-48) Monocytes (%) (Auto) 15 % (0-9) Eosinophils (%) (Auto) 2 % (0-3) Basophils (%) (Auto) 1 % (0-3) Neutrophils # (Auto) 5.9 x10^3uL (1.8-7.7) Lymphocytes # (Auto) 2.4 x10^3/uL (1.0-4.8) Monocytes # (Auto) 1.6 x10^3/uL (0.0-1.1) Eosinophils # (Auto) 0.2 x10^3/uL (0.0-0.7) Basophils # (Auto) 0.1 x10^3/uL (0.0-0.2) Prothrombin Time 14.4 SEC (11.7-14.0) Prothromb Time International Ratio 1.2 (0.8-1.1) Sodium Level 144 mmol/L (136-145) Potassium Level 4.2 mmol/L (3.5-5.1) Chloride Level 106 mmol/L (98-107) Carbon Dioxide Level 25 mmol/L (21-32) Anion Gap 13 (6-14) Blood Urea Nitrogen 17 mg/dL (8-26) Creatinine 1.1 mg/dL (0.7-1.3) Estimated GFR (Cockcroft-Gault) 64.6 BUN/Creatinine Ratio 15 (6-20) Glucose Level 121 mg/dL (70-99) Calcium Level 9.5 mg/dL (8.5-10.1) Total Bilirubin 0.9 mg/dL (0.2-1.0) Aspartate Amino Transf (AST/SGOT) 39 U/L (15-37) Alanine Aminotransferase (ALT/SGPT) 35 U/L (16-63) Alkaline Phosphatase 67 U/L (46-116) Total Protein 7.5 g/dL (6.4-8.2) Albumin 3.4 g/dL (3.4-5.0) Albumin/Globulin Ratio 0.8 (1.0-1.7) Laboratory Tests Test 01/20/19 17:25 White Blood Count 10.2 x10^3/uL (4.0-11.0) Red Blood Count 5.21 x10^6/uL (4.30-5.70) Hemoglobin 16.8 g/dL (13.0-17.5) Hematocrit 48.2 % (39.0-53.0) Mean Corpuscular Volume 93 fL (79-100) Mean Corpuscular Hemoglobin 32 pg (25-35) Mean Corpuscular Hemoglobin Concent 35 g/dL (31-37) Red Cell Distribution Width 13.7 % (11.5-14.5) Platelet Count 160 x10^3/uL (140-400) Neutrophils (%) (Auto) 58 % (31-73) Lymphocytes (%) (Auto) 24 % (24-48) Monocytes (%) (Auto) 15 % (0-9) Eosinophils (%) (Auto) 2 % (0-3) Basophils (%) (Auto) 1 % (0-3) Neutrophils # (Auto) 5.9 x10^3uL (1.8-7.7) Lymphocytes # (Auto) 2.4 x10^3/uL (1.0-4.8) Monocytes # (Auto) 1.6 x10^3/uL (0.0-1.1) Eosinophils # (Auto) 0.2 x10^3/uL (0.0-0.7) Basophils # (Auto) 0.1 x10^3/uL (0.0-0.2) Prothrombin Time 14.4 SEC (11.7-14.0) Prothromb Time International Ratio 1.2 (0.8-1.1) Sodium Level 144 mmol/L (136-145) Potassium Level 4.2 mmol/L (3.5-5.1) Chloride Level 106 mmol/L (98-107) Carbon Dioxide Level 25 mmol/L (21-32) Anion Gap 13 (6-14) Blood Urea Nitrogen 17 mg/dL (8-26) Creatinine 1.1 mg/dL (0.7-1.3) Estimated GFR (Cockcroft-Gault) 64.6 BUN/Creatinine Ratio 15 (6-20) Glucose Level 121 mg/dL (70-99) Calcium Level 9.5 mg/dL (8.5-10.1) Total Bilirubin 0.9 mg/dL (0.2-1.0) Aspartate Amino Transf (AST/SGOT) 39 U/L (15-37) Alanine Aminotransferase (ALT/SGPT) 35 U/L (16-63) Alkaline Phosphatase 67 U/L (46-116) Total Protein 7.5 g/dL (6.4-8.2) Albumin 3.4 g/dL (3.4-5.0) Albumin/Globulin Ratio 0.8 (1.0-1.7) Assessment and Plan Xrays, CT reviewed, no fracture at knee. DJD present. Will see patient in am LUCAS SWAN II, MD Jan 20, 2019 20:21
[2019-01-20] MEDS ORDERED: LABETALOL 20 MG/4 ML DISP.SYRIN. IVP PRN (20:30)
[2019-01-20] MEDS: MORPHINE SULFATE 4 MG/ML VIAL. IV PRN (20:40)
[2019-01-20] MEDS: IV NORMAL SALINE 1000ML BAG 1,000 ML IV SCH (20:51)
[2019-01-20] MEDS: GABAPENTIN 100 MG CAPSULE. PO SCH (21:00)
[2019-01-20] MEDS: HYDROcodone/APAP 10/325 1 TAB TABLET PO PRN (22:35)
[2019-01-20] MEDS: fentaNYL PF VIAL 100 MCG/2 ML VIAL IV PRN (22:36)
[2019-01-20 23:00] VITALS: BP 137/74
[2019-01-21] VITALS (7 sets, daily range): BP systolic 134–177; BP diastolic 74–89
[2019-01-21] MEDS: fentaNYL PF VIAL 100 MCG/2 ML VIAL IV PRN ×2 (01:57→06:56)
[2019-01-21 05:29] LABS: BASO # 0.1 x10^3/uL (0.0-0.2); BASO % 1 % (0-3); EOS % 0 % (0-3); HEMATOCRIT 46.4 % (39.0-53.0); HEMOGLOBIN 15.6 g/dL (13.0-17.5); LYMPH # 1.6 x10^3/uL (1.0-4.8); LYMPH % 13 % (24-48); MEAN CORPUSCULAR HEMOGLOBIN 31 pg (25-35); MEAN CORPUSCULAR HGB CONC 34 g/dL (31-37); MEAN CORPUSCULAR VOLUME 94 fL (79-100); MONO # 1.5 x10^3/uL (0.0-1.1); MONO % 13 % (0-9); NEUT # 8.7 x10^3uL (1.8-7.7); NEUT % 73 % (31-73); PLATELET COUNT 139 x10^3/uL (140-400); RED BLOOD COUNT 4.97 x10^6/uL (4.30-5.70); RED CELL DISTRIBUTION WIDTH 13.6 % (11.5-14.5); WHITE BLOOD COUNT 11.9 x10^3/uL (4.0-11.0)
[2019-01-21 06:05] LABS: ALBUMIN 3.2 g/dL (3.4-5.0); ALBUMIN/GLOBULIN RATIO 0.8 (1.0-1.7); CALCIUM 8.4 mg/dL (8.5-10.1); CREATININE 1.1 mg/dL (0.7-1.3); GFR 64.6; POTASSIUM 3.6 mmol/L (3.5-5.1); TOTAL BILIRUBIN 1.1 mg/dL (0.2-1.0); TOTAL PROTEIN 7.1 g/dL (6.4-8.2)
[2019-01-21] MEDS: IV NORMAL SALINE 1000ML BAG 1,000 ML IV SCH ×2 (06:57→09:32)
[2019-01-21] MEDS: PANTOPRAZOLE 40 MG TABLET.DR. PO SCH (07:30)
--- NOTE | 2019-01-21 07:49 | NUR ---
The XRays and CT were reviewed by and showed there is no fracture of the left knee like previously charted in the head to toe assessment, showed possible DJD.
--- NOTE | 2019-01-21 07:49 | PDOC ---
PROGRESS NOTES Chief Complaint Chief Complaint A/P: Acute traumatic type II C2 dens fracture and nondisplaced right C1 lamina fracture - cont cervical immobilization. Neurosurgery consulted, this may actually be non-operative if stability can be maintained. Will defer to neurosurgery expertise. Pain control Scalp laceration - well approximated and managed in ED. Local wound care HTN - will continue CAD - with LAD chronic occlusion, appears to have [employer] since 2016, medically managed. 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 Can continue wound care inpatient Left knee pain - x-ray revealing a transverse linear subcortical lucency on the medial tibial plateau, which was negative for fx on CT knee and ortho consultation for possible injection tomorrow morning FEN - LR. NPO for now. Can ADAT once neurosurgery evaluation complete PPX - SCDs, can add heparin FULL CODE Inpatient for cervical fracture at least 2 midnights. 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 Patient slipped on wet bricks this afternoon, less than an hour prior to arrival , hitting his head. There was no loss of consciousness. No nausea, no change in vision. No syncopal episode. No chest pain or palpitations area did he also complains of some left knee discomfort with the fall. He received 6 narda across the crown of his head in the ED and underwent trauma series of head and neck revealing an acute traumatic type II C2 dens fracture and nondisplaced right C1 lamina fracture and so was not cleared from his c-collar. He had left knee x-ray revealing a transverse linear subcortical lucency on the medial tibial plateau, which could also be a fracture. He was called for admission for further care of pain and his multiple fractures. CT left knee overnight revealed no fracture and CTA head revealed no apparent vascular damage. He was very anxious and having significant breakthrough pain overnight. Given low dose ativan 0.5mg IV and fentanyl 50mcg with some relief. He is drowsy this morning, but easily aroused and alert, appears much more comfortable now that he is out of the left knee immobilizer, still trying to touch his head, however. After decadron administration his glucose jumped. Plan: Above meds Sliding scale for hyperglycemia SW for likely rehab planning for eventual discharge. Await NS recs Left knee injection in AM per ortho Vitals Vitals Vital Signs Date Time Temp Pulse Resp B/P (MAP) Pulse Ox O2 Delivery O2 Flow Rate FiO2 01/21/19 07:18 Room Air 01/21/19 04:28 68 162/91 01/21/19 03:00 98.1 20 92 98.1 Physical Exam General: Alert, Oriented X3, Cooperative, mild distress Lungs: Clear Abdomen: Normal bowel sounds, Soft, No tenderness, No hepatosplenomegaly, No masses Extremities: No clubbing, No cyanosis, Normal pulses, Other (Left knee swollen) Skin: Other (Right tibia anteriorly with chronic wound and stasis dermatitis discoloration) Labs LABS Laboratory Tests Test 01/20/19 17:25 01/21/19 05:00 White Blood Count 10.2 x10^3/uL (4.0-11.0) 11.9 x10^3/uL (4.0-11.0) Red Blood Count 5.21 x10^6/uL (4.30-5.70) 4.97 x10^6/uL (4.30-5.70) Hemoglobin 16.8 g/dL (13.0-17.5) 15.6 g/dL (13.0-17.5) Hematocrit 48.2 % (39.0-53.0) 46.4 % (39.0-53.0) Mean Corpuscular Volume 93 fL (79-100) 94 fL (79-100) Mean Corpuscular Hemoglobin 32 pg (25-35) 31 pg (25-35) Mean Corpuscular Hemoglobin Concent 35 g/dL (31-37) 34 g/dL (31-37) Red Cell Distribution Width 13.7 % (11.5-14.5) 13.6 % (11.5-14.5) Platelet Count 160 x10^3/uL (140-400) 139 x10^3/uL (140-400) Neutrophils (%) (Auto) 58 % (31-73) 73 % (31-73) Lymphocytes (%) (Auto) 24 % (24-48) 13 % (24-48) Monocytes (%) (Auto) 15 % (0-9) 13 % (0-9) Eosinophils (%) (Auto) 2 % (0-3) 0 % (0-3) Basophils (%) (Auto) 1 % (0-3) 1 % (0-3) Neutrophils # (Auto) 5.9 x10^3uL (1.8-7.7) 8.7 x10^3uL (1.8-7.7) Lymphocytes # (Auto) 2.4 x10^3/uL (1.0-4.8) 1.6 x10^3/uL (1.0-4.8) Monocytes # (Auto) 1.6 x10^3/uL (0.0-1.1) 1.5 x10^3/uL (0.0-1.1) Eosinophils # (Auto) 0.2 x10^3/uL (0.0-0.7) 0.0 x10^3/uL (0.0-0.7) Basophils # (Auto) 0.1 x10^3/uL (0.0-0.2) 0.1 x10^3/uL (0.0-0.2) Prothrombin Time 14.4 SEC (11.7-14.0) Prothromb Time International Ratio 1.2 (0.8-1.1) Sodium Level 144 mmol/L (136-145) 145 mmol/L (136-145) Potassium Level 4.2 mmol/L (3.5-5.1) 3.6 mmol/L (3.5-5.1) Chloride Level 106 mmol/L (98-107) 107 mmol/L (98-107) Carbon Dioxide Level 25 mmol/L (21-32) 26 mmol/L (21-32) Anion Gap 13 (6-14) 12 (6-14) Blood Urea Nitrogen 17 mg/dL (8-26) 15 mg/dL (8-26) Creatinine 1.1 mg/dL (0.7-1.3) 1.1 mg/dL (0.7-1.3) Estimated GFR (Cockcroft-Gault) 64.6 64.6 BUN/Creatinine Ratio 15 (6-20) 14 (6-20) Glucose Level 121 mg/dL (70-99) 165 mg/dL (70-99) Calcium Level 9.5 mg/dL (8.5-10.1) 8.4 mg/dL (8.5-10.1) Total Bilirubin 0.9 mg/dL (0.2-1.0) 1.1 mg/dL (0.2-1.0) Aspartate Amino Transf (AST/SGOT) 39 U/L (15-37) 32 U/L (15-37) Alanine Aminotransferase (ALT/SGPT) 35 U/L (16-63) 31 U/L (16-63) Alkaline Phosphatase 67 U/L (46-116) 62 U/L (46-116) Total Protein 7.5 g/dL (6.4-8.2) 7.1 g/dL (6.4-8.2) Albumin 3.4 g/dL (3.4-5.0) 3.2 g/dL (3.4-5.0) Albumin/Globulin Ratio 0.8 (1.0-1.7) 0.8 (1.0-1.7) Assessment and Plan Assessmemt and Plan Problems Medical Problems: (1) C1 cervical fracture Status: Acute (2) Dens fracture Status: Acute (3) Tibial plateau fracture Status: Acute Comment Review of Relevant I have reviewed the following items bernard (where applicable) has been applied. Labs Laboratory Tests Test 01/20/19 17:25 01/21/19 05:00 White Blood Count 10.2 x10^3/uL (4.0-11.0) 11.9 x10^3/uL (4.0-11.0) Red Blood Count 5.21 x10^6/uL (4.30-5.70) 4.97 x10^6/uL (4.30-5.70) Hemoglobin 16.8 g/dL (13.0-17.5) 15.6 g/dL (13.0-17.5) Hematocrit 48.2 % (39.0-53.0) 46.4 % (39.0-53.0) Mean Corpuscular Volume 93 fL (79-100) 94 fL (79-100) Mean Corpuscular Hemoglobin 32 pg (25-35) 31 pg (25-35) Mean Corpuscular Hemoglobin Concent 35 g/dL (31-37) 34 g/dL (31-37) Red Cell Distribution Width 13.7 % (11.5-14.5) 13.6 % (11.5-14.5) Platelet Count 160 x10^3/uL (140-400) 139 x10^3/uL (140-400) Neutrophils (%) (Auto) 58 % (31-73) 73 % (31-73) Lymphocytes (%) (Auto) 24 % (24-48) 13 % (24-48) Monocytes (%) (Auto) 15 % (0-9) 13 % (0-9) Eosinophils (%) (Auto) 2 % (0-3) 0 % (0-3) Basophils (%) (Auto) 1 % (0-3) 1 % (0-3) Neutrophils # (Auto) 5.9 x10^3uL (1.8-7.7) 8.7 x10^3uL (1.8-7.7) Lymphocytes # (Auto) 2.4 x10^3/uL (1.0-4.8) 1.6 x10^3/uL (1.0-4.8) Monocytes # (Auto) 1.6 x10^3/uL (0.0-1.1) 1.5 x10^3/uL (0.0-1.1) Eosinophils # (Auto) 0.2 x10^3/uL (0.0-0.7) 0.0 x10^3/uL (0.0-0.7) Basophils # (Auto) 0.1 x10^3/uL (0.0-0.2) 0.1 x10^3/uL (0.0-0.2) Prothrombin Time 14.4 SEC (11.7-14.0) Prothromb Time International Ratio 1.2 (0.8-1.1) Sodium Level 144 mmol/L (136-145) 145 mmol/L (136-145) Potassium Level 4.2 mmol/L (3.5-5.1) 3.6 mmol/L (3.5-5.1) Chloride Level 106 mmol/L (98-107) 107 mmol/L (98-107) Carbon Dioxide Level 25 mmol/L (21-32) 26 mmol/L (21-32) Anion Gap 13 (6-14) 12 (6-14) Blood Urea Nitrogen 17 mg/dL (8-26) 15 mg/dL (8-26) Creatinine 1.1 mg/dL (0.7-1.3) 1.1 mg/dL (0.7-1.3) Estimated GFR (Cockcroft-Gault) 64.6 64.6 BUN/Creatinine Ratio 15 (6-20) 14 (6-20) Glucose Level 121 mg/dL (70-99) 165 mg/dL (70-99) Calcium Level 9.5 mg/dL (8.5-10.1) 8.4 mg/dL (8.5-10.1) Total Bilirubin 0.9 mg/dL (0.2-1.0) 1.1 mg/dL (0.2-1.0) Aspartate Amino Transf (AST/SGOT) 39 U/L (15-37) 32 U/L (15-37) Alanine Aminotransferase (ALT/SGPT) 35 U/L (16-63) 31 U/L (16-63) Alkaline Phosphatase 67 U/L (46-116) 62 U/L (46-116) Total Protein 7.5 g/dL (6.4-8.2) 7.1 g/dL (6.4-8.2) Albumin 3.4 g/dL (3.4-5.0) 3.2 g/dL (3.4-5.0) Albumin/Globulin Ratio 0.8 (1.0-1.7) 0.8 (1.0-1.7) Laboratory Tests Test 01/20/19 17:25 01/21/19 05:00 White Blood Count 10.2 x10^3/uL (4.0-11.0) 11.9 x10^3/uL (4.0-11.0) Red Blood Count 5.21 x10^6/uL (4.30-5.70) 4.97 x10^6/uL (4.30-5.70) Hemoglobin 16.8 g/dL (13.0-17.5) 15.6 g/dL (13.0-17.5) Hematocrit 48.2 % (39.0-53.0) 46.4 % (39.0-53.0) Mean Corpuscular Volume 93 fL (79-100) 94 fL (79-100) Mean Corpuscular Hemoglobin 32 pg (25-35) 31 pg (25-35) Mean Corpuscular Hemoglobin Concent 35 g/dL (31-37) 34 g/dL (31-37) Red Cell Distribution Width 13.7 % (11.5-14.5) 13.6 % (11.5-14.5) Platelet Count 160 x10^3/uL (140-400) 139 x10^3/uL (140-400) Neutrophils (%) (Auto) 58 % (31-73) 73 % (31-73) Lymphocytes (%) (Auto) 24 % (24-48) 13 % (24-48) Monocytes (%) (Auto) 15 % (0-9) 13 % (0-9) Eosinophils (%) (Auto) 2 % (0-3) 0 % (0-3) Basophils (%) (Auto) 1 % (0-3) 1 % (0-3) Neutrophils # (Auto) 5.9 x10^3uL (1.8-7.7) 8.7 x10^3uL (1.8-7.7) Lymphocytes # (Auto) 2.4 x10^3/uL (1.0-4.8) 1.6 x10^3/uL (1.0-4.8) Monocytes # (Auto) 1.6 x10^3/uL (0.0-1.1) 1.5 x10^3/uL (0.0-1.1) Eosinophils # (Auto) 0.2 x10^3/uL (0.0-0.7) 0.0 x10^3/uL (0.0-0.7) Basophils # (Auto) 0.1 x10^3/uL (0.0-0.2) 0.1 x10^3/uL (0.0-0.2) Prothrombin Time 14.4 SEC (11.7-14.0) Prothromb Time International Ratio 1.2 (0.8-1.1) Sodium Level 144 mmol/L (136-145) 145 mmol/L (136-145) Potassium Level 4.2 mmol/L (3.5-5.1) 3.6 mmol/L (3.5-5.1) Chloride Level 106 mmol/L (98-107) 107 mmol/L (98-107) Carbon Dioxide Level 25 mmol/L (21-32) 26 mmol/L (21-32) Anion Gap 13 (6-14) 12 (6-14) Blood Urea Nitrogen 17 mg/dL (8-26) 15 mg/dL (8-26) Creatinine 1.1 mg/dL (0.7-1.3) 1.1 mg/dL (0.7-1.3) Estimated GFR (Cockcroft-Gault) 64.6 64.6 BUN/Creatinine Ratio 15 (6-20) 14 (6-20) Glucose Level 121 mg/dL (70-99) 165 mg/dL (70-99) Calcium Level 9.5 mg/dL (8.5-10.1) 8.4 mg/dL (8.5-10.1) Total Bilirubin 0.9 mg/dL (0.2-1.0) 1.1 mg/dL (0.2-1.0) Aspartate Amino Transf (AST/SGOT) 39 U/L (15-37) 32 U/L (15-37) Alanine Aminotransferase (ALT/SGPT) 35 U/L (16-63) 31 U/L (16-63) Alkaline Phosphatase 67 U/L (46-116) 62 U/L (46-116) Total Protein 7.5 g/dL (6.4-8.2) 7.1 g/dL (6.4-8.2) Albumin 3.4 g/dL (3.4-5.0) 3.2 g/dL (3.4-5.0) Albumin/Globulin Ratio 0.8 (1.0-1.7) 0.8 (1.0-1.7) Medications Current Medications Diphtheria/ Tetanus/Acell Pertussis (Boostrix) 0.5 ml ONCE ONCE VAX IM Last administered on 01/20/19at 16:40; Start 01/20/19 at 16:00; Stop 01/20/19 at 16:01; Status DC Lidocaine HCl (Lidocaine 1% 20ml Vial) 20 ml 1X ONCE INJ Last administered on 01/20/19at 16:38; Start 01/20/19 at 16:00; Stop 01/20/19 at 16:01; Status DC Ondansetron HCl (Zofran) 4 mg PRN Q8HRS PRN IV NAUSEA/VOMITING; Start 01/20/19 at 17:45; Stop 01/21/19 at 17:44 Morphine Sulfate (Morphine Sulfate) 4 mg PRN Q2HR PRN IV PAIN Last administered on 01/20/19at 20:40; Start 01/20/19 at 17:45; Stop 01/21/19 at 17:44 Sodium Chloride 1,000 ml @ 125 mls/hr Q8H IV Last administered on 01/21/19at 06 :57; Start 01/20/19 at 17:32; Stop 01/21/19 at 17:31 Acetaminophen (Tylenol) 650 mg PRN Q4HRS PRN PO FEVER; Start 01/20/19 at 17:45; Stop 01/21/19 at 17:44 Iohexol (Omnipaque 350 Mg/ml) 100 ml 1X ONCE IV Last administered on 01/20/19at 18:50; Start 01/20/19 at 18:15; Stop 01/20/19 at 18:16; Status DC Info (CONTRAST GIVEN -- Rx MONITORING) 1 each PRN DAILY PRN MC SEE COMMENTS; Start 01/20/19 at 18:30; Stop 01/22/19 at 18:29 Gabapentin (Neurontin) 100 mg TID PO ; Start 01/20/19 at 21:00 Acetaminophen/ Hydrocodone Bitart (Lortab 10/325) 1 tab PRN Q6HRS PRN PO MODERATE - SEVERE PAIN Last administered on 01/20/19at 22:35; Start 01/20/19 at 20: 15 Isosorbide Mononitrate (Imdur) 30 mg DAILY PO ; Start 01/21/19 at 09:00 Potassium Chloride (Klor-Con) 10 meq DAILY PO ; Start 01/21/19 at 09:00 Tramadol HCl (Ultram) 50 mg PRN Q6HRS PRN PO MILD PAIN; Start 01/20/19 at 20:15 Ascorbic Acid (Vitamin C) 1,000 mg DAILY PO ; Start 01/21/19 at 09:00 Non-Formulary Medication (Atenolol/ Chlorthalidone (Atenolol-Chlorthal 50-25 Tb) ) 1 tab QODAY PO ; Start 01/22/19 at 09:00; Status UNV Pantoprazole Sodium (Protonix) 40 mg DAILYAC PO ; Start 01/21/19 at 07:30 Non-Formulary Medication (Ginkgo Biloba Extract (Ginkgo Biloba)) 120 mg DAILY PO ; Start 01/21/19 at 09:00; Status UNV Non-Formulary Medication (Glucosamine/ Chondroitin Sulf A (Glucosamine Chondroitin Cap)) 1 each DAILY PO ; Start 01/21/19 at 09:00; Status UNV Fish Oil (Fish Oil) 1,000 mg DAILY PO ; Start 01/21/19 at 09:00 Non-Formulary Medication (Lecithin, Soy (Lecithin)) 400 mg DAILY PO ; Start 09/01 at 09:00; Status UNV Multivitamins (Thera M Plus) 1 tab DAILY PO ; Start 01/21/19 at 09:00 Vitamin B Complex (Rodríguez B) 1 tab DAILY PO ; Start 01/21/19 at 09:00 Labetalol HCl (Normodyne Iv Push) 10 mg PRN Q4HRS PRN IVP HYPERTENSION, SEE COMMENTS Last administered on 01/21/19at 04:28; Start 01/20/19 at 20:30 Atenolol (Tenormin) 50 mg Q48H PO ; Start 01/21/19 at 09:00 Chlorthalidone (Thalitone) 25 mg Q48H PO ; Start 01/21/19 at 09:00 Lorazepam (Ativan) 0.5 mg PRN Q6HRS PRN IV ANXIETY / AGITATION Last administered on 01/20/19at 23:36; Start 01/20/19 at 22:15 Fentanyl Citrate (Fentanyl 2ml Vial) 50 mcg PRN Q3HRS PRN IV PAIN Last administered on 01/21/19at 06:56; Start 01/20/19 at 22:15 Active Scripts Active Isosorbide Mononitrate Er (Isosorbide Mononitrate) 30 Mg Tab.er.24h 30 Mg PO DAILY Reported Ginkgo Biloba (Ginkgo Biloba Extract) 120 Mg Capsule 120 Mg PO DAILY Calcium + Vit D & K Chew Tab (Ca Carbonate/Vitamin D3/Vit K) 1 Each Tab.chew 1 Each PO DAILY Vitamin C (Ascorbic Acid) 1,000 Mg Tablet 1,000 Mg PO DAILY Vitamin E (Vitamin E (Dl,Tocopheryl Acet)) 400 Unit Capsule 400 Unit PO DAILY Vitamin B Complex 1 Each Capsule 1 Each PO DAILY Lecithin (Lecithin, Soy) 400 Mg Capsule 400 Mg PO DAILY Glucosamine Chondroitin Cap (Glucosamine/Chondroitin Sulf A) 1 Each Capsule 1 Each PO DAILY [place]-3 Krill Oil Softgel (Krill Oil/[place]-3/Dha/Epa) 1 Each Capsule 1 Each PO DAILY Ibuprofen 200 Mg Tablet 200 Mg PO PRN Q6HRS PRN Lansoprazole 15 Mg Capsule.dr 15 Mg PO DAILY Percocet 10-325 Mg Tablet (Oxycodone/Acetaminophen) 1 Each Tablet 1 Tab PO PRN Q6HRS PRN Furosemide 40 Mg Tablet 1 Tab PO DAILY PRN Potassium Chloride 10 Meq Capsule.er 1 Cap PO DAILY Carafate (Sucralfate) 1 Gm/10 Ml Oral.susp 1 Gm PO PRN Gabapentin (Gabapentin) 100 Mg Capsule 100 Mg PO TID Pradaxa (Dabigatran Etexilate Mesylate) 150 Mg Capsule 1 Cap PO BID Nexium Capsule (Esomeprazole Magnesium) 40 Mg Capsule.dr 1 Cap PO DAILY Tramadol Hcl 50 Mg Tablet 50-100 Mg PO Q4-6HRS PRN Hydrocodone-Apap 10-325 (Hydrocodone Bit/Acetaminophen) 1 Each Tablet 1 Tab PO PRN Q6HRS PRN Vitamin D3 (Cholecalciferol (Vitamin D3)) 400 Unit Tablet 400 Unit PO Multivitamins (Multivitamin) 1 Each Tablet 1 Each PO DAILY Atenolol-Chlorthal 50-25 Tb (Atenolol/Chlorthalidone) 1 Each Tablet 1 Tab PO QODAY Vitals/I & O Vital Sign - Last 24 Hours 01/20/19 01/20/19 01/20/19 01/20/19 15:35 15:38 16:08 16:35 Temp 96.7 96.7 Pulse 84 82 64 62 Resp 18 19 19 20 B/P (MAP) 168/96 (120) 168/96 (120) 153/88 (109) 131/82 (98) Pulse Ox 94 90 97 90 O2 Delivery Room Air Room Air Room Air Room Air 01/20/19 01/20/19 01/20/199/19 17:26 18:08 19:00 19:30 Temp 97.9 97.9 Pulse 63 64 64 Resp 20 18 B/P (MAP) 154/83 (106) 155/82 (106) 146/76 (99) Pulse Ox 94 95 97 O2 Delivery Room Air Room Air Room Air Room Air 01/20/19 01/20/19 01/20/19 01/20/19 20:40 21:10 22:35 22:36 O2 Delivery Room Air Room Air Room Air Room Air 01/20/19 01/20/19 01/21/19 01/21/19 23:00 23:35 01:57 03:00 Temp 97.6 98.1 97.6 98.1 Pulse 69 88 Resp 18 20 B/P (MAP) 137/74 (95) 169/85 (113) Pulse Ox 94 92 O2 Delivery Room Air Room Air Room Air Room Air 01/21/19 01/21/19 01/21/19 04:28 06:56 07:18 Pulse 68 B/P (MAP) 162/91 O2 Delivery Room Air Room Air Intake and Output 01/20/19 01/20/19 01/21/19 15:00 23:00 07:00 Intake Total 0 ml Output Total 600 ml Balance -600 ml [address] head/neck - 1. Acute traumatic type II C2 dens fracture as described above. 2. Acute traumatic nondisplaced right C1 lamina fracture as described above. Left Knee XR - Transverse linear subcortical lucency medial tibial plateau on the apparent on the oblique view, a fracture is not excluded, as described above. CTA head/neck - No significant stenosis, dissection, aneurysm, thrombosis or occlusion of the cervical carotid and vertebral arteries as described above. Cervical fractures of C1 and C2 vertebra again demonstrated as previously described. CT left knee - 1. No acute osseous injury of the left knee. Osteoarthritis. Mild joint effusion. Small Donato's cyst. 2. [employer] x-ray of the right knee demonstrates a nonspecific 6 cm sclerotic bone lesion. If the patient has not had prior x-rays assessing this then consider further correlation with dedicated right knee x-rays. EMERALD CRUM MD Jan 21, 2019 07:49
[2019-01-21] MEDS: ISOSORBIDE MONONITRATE ER 30 MG TAB.ER.24H PO SCH (08:00)
[2019-01-21] MEDS: OMEGA-3 FATTY ACIDS/FISH OIL 1,000 MG CAPSULE. PO SCH (08:00)
[2019-01-21] MEDS: ATENOLOL 50 MG TABLET. PO SCH (08:00)
[2019-01-21] MEDS: GABAPENTIN 100 MG CAPSULE. PO SCH ×3 (08:00→20:22)
[2019-01-21] MEDS: POTASSIUM CHLORIDE 10 MEQ TABLET.ER. PO SCH (08:00)
[2019-01-21] MEDS: VITAMIN B COMPLEX TABLET. PO SCH (08:00)
[2019-01-21] MEDS: MULTIVITAMIN with MINERAL TABLET. PO SCH (08:01)
[2019-01-21] MEDS: ASCORBIC ACID 500 MG TABLET PO SCH (08:01)
[2019-01-21] MEDS: CHLORTHALIDONE 25 MG TABLET. PO SCH (08:01)
[2019-01-21] MEDS ORDERED: GLUCOSAMINE PO SCH (09:00)
[2019-01-21] MEDS ORDERED: GINKGO BILOBA EXTRACT 120 MG PO SCH (09:00)
[2019-01-21] MEDS ORDERED: LECITHIN SOY 400 MG PO SCH (09:00)
[2019-01-21] MEDS ORDERED: [UNRECOGNIZED DRUG - OTHER] PO SCH (09:00)
[2019-01-21] MEDS ORDERED: DEXTROSE 50% 25 GM / 50ML DISP.SYRIN. IV PRN (09:30)
[2019-01-21] MEDS: INSULIN LISPRO 300 UNITS/3 ML INSULN.PEN. SQ SCH ×3 (09:30→18:00)
[2019-01-21] MEDS ORDERED: POTASSIUM CHLORIDE 20 MEQ TABLET.ER. PO ONE (09:30)
--- NOTE | 2019-01-21 09:40 | PDOC2 ---
CONSULT Date of Consult Date of Consult DATE: 01/21/19 TIME: 09:35 Reason for Consult Reason for Consult: Left knee pain Referring Physician Referring Physician: Barbie Identification/Chief Complaint Chief Complaint Neck and head pain Source Source: Caregiver, Chart review, Patient History of Present Illness Reason for Visit: Patient is a very pleasant 78-year-old gentleman who has accommodated history regarding his right knee and had a fall yesterday resulting in upper cervical spine fractures and an acute onset of left knee pain. He had some left knee pain in the past, but nothing this severe. It hurts whenever he puts weight on his leg. His main complaint however is his neck and head pain, he had a scalp laceration addressed in the emergency department and he has pain in his posterior neck and head right now. He denies any abnormal feelings in his upper or lower extremities. Regarding his left knee pain, it is worse with any movement or attempted weightbearing, and is better at rest. He does feel a little uncomfortable in the immobilizer he was placed into. Denies any abnormal sensation in his left lower extremity. He has no new complaints regarding his right knee. 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 Past Medical History Cardiovascular: HTN, Other Pulmonary: No pertinent hx CENTRAL NERVOUS SYSTEM: Periperal neuropathy GI: GERD Heme/Onc: Cancer Hepatobiliary: No pertinent hx Psych: No pertinent hx Musculoskeletal: Osteoarthritis Rheumatologic: No pertinent hx Infectious disease: No pertinent hx Renal/: No pertinent hx Endocrine: No pertinent hx Past Surgical History Past Surgical History: Cholecystectomy, Other Family History Family History: High Cholestrol, Hypertension Social History No ALCOHOL: occassional Drugs: None Lives: with Family Current Problem List Problem List Problems Medical Problems: (1) C1 cervical fracture Status: Acute (2) Dens fracture Status: Acute Current Medications Current Medications Current Medications Diphtheria/ Tetanus/Acell Pertussis (Boostrix) 0.5 ml ONCE ONCE VAX IM Last administered on 01/20/19at 16:40; Start 01/20/19 at 16:00; Stop 01/20/19 at 16:01; Status DC Lidocaine HCl (Lidocaine 1% 20ml Vial) 20 ml 1X ONCE INJ Last administered on 01/20/19at 16:38; Start 01/20/19 at 16:00; Stop 01/20/19 at 16:01; Status DC Ondansetron HCl (Zofran) 4 mg PRN Q8HRS PRN IV NAUSEA/VOMITING; Start 01/20/19 at 17:45; Stop 01/21/19 at 17:44 Morphine Sulfate (Morphine Sulfate) 4 mg PRN Q2HR PRN IV PAIN Last administered on 01/20/19at 20:40; Start 01/20/19 at 17:45; Stop 01/21/19 at 17:44 Sodium Chloride 1,000 ml @ 125 mls/hr Q8H IV Last administered on 01/21/19at 06 :57; Start 01/20/19 at 17:32; Stop 01/21/19 at 17:31 Acetaminophen (Tylenol) 650 mg PRN Q4HRS PRN PO FEVER; Start 01/20/19 at 17:45; Stop 01/21/19 at 17:44 Iohexol (Omnipaque 350 Mg/ml) 100 ml 1X ONCE IV Last administered on 01/20/19at 18:50; Start 01/20/19 at 18:15; Stop 01/20/19 at 18:16; Status DC Info (CONTRAST GIVEN -- Rx MONITORING) 1 each PRN DAILY PRN MC SEE COMMENTS; Start 01/20/19 at 18:30; Stop 01/22/19 at 18:29 Gabapentin (Neurontin) 100 mg TID PO ; Start 01/20/19 at 21:00 Acetaminophen/ Hydrocodone Bitart (Lortab 10/325) 1 tab PRN Q6HRS PRN PO MODERATE - SEVERE PAIN Last administered on 01/20/19at 22:35; Start 01/20/19 at 20: 15 Isosorbide Mononitrate (Imdur) 30 mg DAILY PO ; Start 01/21/19 at 09:00 Potassium Chloride (Klor-Con) 10 meq DAILY PO ; Start 01/21/19 at 09:00 Tramadol HCl (Ultram) 50 mg PRN Q6HRS PRN PO MILD PAIN; Start 01/20/19 at 20:15 Ascorbic Acid (Vitamin C) 1,000 mg DAILY PO ; Start 01/21/19 at 09:00 Non-Formulary Medication (Atenolol/ Chlorthalidone (Atenolol-Chlorthal 50-25 Tb) ) 1 tab QODAY PO ; Start 01/22/19 at 09:00; Status UNV Pantoprazole Sodium (Protonix) 40 mg DAILYAC PO ; Start 01/21/19 at 07:30 Non-Formulary Medication (Ginkgo Biloba Extract (Ginkgo Biloba)) 120 mg DAILY PO ; Start 01/21/19 at 09:00; Status UNV Non-Formulary Medication (Glucosamine/ Chondroitin Sulf A (Glucosamine Chondroitin Cap)) 1 each DAILY PO ; Start 01/21/19 at 09:00; Status UNV Fish Oil (Fish Oil) 1,000 mg DAILY PO ; Start 01/21/19 at 09:00 Non-Formulary Medication (Lecithin, Soy (Lecithin)) 400 mg DAILY PO ; Start 09/01 at 09:00; Status UNV Multivitamins (Thera M Plus) 1 tab DAILY PO ; Start 01/21/19 at 09:00 Vitamin B Complex (Rodríguez B) 1 tab DAILY PO ; Start 01/21/19 at 09:00 Labetalol HCl (Normodyne Iv Push) 10 mg PRN Q4HRS PRN IVP HYPERTENSION, SEE COMMENTS Last administered on 01/21/19at 04:28; Start 01/20/19 at 20:30 Atenolol (Tenormin) 50 mg Q48H PO ; Start 01/21/19 at 09:00 Chlorthalidone (Thalitone) 25 mg Q48H PO ; Start 01/21/19 at 09:00 Lorazepam (Ativan) 0.5 mg PRN Q6HRS PRN IV ANXIETY / AGITATION Last administered on 01/20/19at 23:36; Start 01/20/19 at 22:15 Fentanyl Citrate (Fentanyl 2ml Vial) 50 mcg PRN Q3HRS PRN IV PAIN Last administered on 01/21/19at 06:56; Start 01/20/19 at 22:15 Potassium Chloride (Klor-Con) 40 meq 1X ONCE PO ; Start 01/21/19 at 09:30; Stop 01/21/19 at 09:31; Status DC Insulin Human Lispro (HumaLOG) 0-5 UNITS Q6HRS SQ ; Start 01/21/19 at 09:30 Dextrose (Dextrose 50%-Water Syringe) 12.5 gm PRN Q15MIN PRN IV SEE COMMENTS; Start 01/21/19 at 09:30 Active Scripts Active Isosorbide Mononitrate Er (Isosorbide Mononitrate) 30 Mg Tab.er.24h 30 Mg PO DAILY Reported Ginkgo Biloba (Ginkgo Biloba Extract) 120 Mg Capsule 120 Mg PO DAILY Calcium + Vit D & K Chew Tab (Ca Carbonate/Vitamin D3/Vit K) 1 Each Tab.chew 1 Each PO DAILY Vitamin C (Ascorbic Acid) 1,000 Mg Tablet 1,000 Mg PO DAILY Vitamin E (Vitamin E (Dl,Tocopheryl Acet)) 400 Unit Capsule 400 Unit PO DAILY Vitamin B Complex 1 Each Capsule 1 Each PO DAILY Lecithin (Lecithin, Soy) 400 Mg Capsule 400 Mg PO DAILY Glucosamine Chondroitin Cap (Glucosamine/Chondroitin Sulf A) 1 Each Capsule 1 Each PO DAILY [place]-3 Krill Oil Softgel (Krill Oil/[place]-3/Dha/Epa) 1 Each Capsule 1 Each PO DAILY Ibuprofen 200 Mg Tablet 200 Mg PO PRN Q6HRS PRN Lansoprazole 15 Mg Capsule.dr 15 Mg PO DAILY Percocet 10-325 Mg Tablet (Oxycodone/Acetaminophen) 1 Each Tablet 1 Tab PO PRN Q6HRS PRN Furosemide 40 Mg Tablet 1 Tab PO DAILY PRN Potassium Chloride 10 Meq Capsule.er 1 Cap PO DAILY Carafate (Sucralfate) 1 Gm/10 Ml Oral.susp 1 Gm PO PRN Gabapentin (Gabapentin) 100 Mg Capsule 100 Mg PO TID Pradaxa (Dabigatran Etexilate Mesylate) 150 Mg Capsule 1 Cap PO BID Nexium Capsule (Esomeprazole Magnesium) 40 Mg Capsule.dr 1 Cap PO DAILY Tramadol Hcl 50 Mg Tablet 50-100 Mg PO Q4-6HRS PRN Hydrocodone-Apap 10-325 (Hydrocodone Bit/Acetaminophen) 1 Each Tablet 1 Tab PO PRN Q6HRS PRN Vitamin D3 (Cholecalciferol (Vitamin D3)) 400 Unit Tablet 400 Unit PO Multivitamins (Multivitamin) 1 Each Tablet 1 Each PO DAILY Atenolol-Chlorthal 50-25 Tb (Atenolol/Chlorthalidone) 1 Each Tablet 1 Tab PO QODAY Allergies Allergies: Coded Allergies: No Known Medication Allergies (Verified Allergy, Unknown, 11/09/16) ROS General: No: Chills, Night Sweats, Fatigue, Malaise, Appetite, Other PSYCHOLOGICAL ROS: No: Anxiety, Behavioral Disorder, Concentration difficultie , Decreased libido, Depression, Disorientation, Hallucinations, Hostility, Irritablity, Memory difficulties, Mood Swings, Obsessive thoughts, Physical abuse, Sexual abuse, Sleep disturbances, Suicidal ideation, Other Eyes: No Blurry vision, No Decreased vision, No Double vision, No Dry eyes, No Excessive tearing, No Eye Pain, No Itchy Eyes, No Loss of vision, No Photophobia , No Scotomata, No Uses contacts, No Uses glasses, No Other HEENT: YES: [facility] ALLERGY AND IMMUNOLOGY: No: Hives, Insect Bite Sensitivity, Itchy/Watery Eyes, Nasal Congestion, Post Nasal Drip, Seasonal Allergies, Other Hematological and Lymphatic: No: Bleeding Problems, Blood Clots, Blood Transfusions, Brusing, Night Sweats, Pallor, Swollen Lymph Nodes, Other ENDOCRINE: No: Breast Changes, Galactorrhea, Hair Pattern Changes, Hot Flashes , Malaise/lethargy, Mood Swings, Palpitations, Polydipsia/polyuria, Skin Changes , Temperature Intolerance, Unexpected Weight Changes, Other Respiratory: No: Cough, Hemoptysis, Orthopnea, Pleuritic Pain, Shortness of breath, SOB with excertion, Sputum Changes, Stridor, Tachypnea, Wheezing, Other Cardiovascular: No Chest Pain, No Palpitations, No Orthopnea, No Paroxysmal Noc. Dyspnea, No Edema, No Lt Headedness, No Other Gastrointestinal: No Nausea, No Vomiting, No Abdominal Pain, No Diarrhea, No Constipation, No Melena, No Hematochezia, No Other Genitourinary: No Dysuria, No Frequency, No Incontinence, No Hematuria, No Retention, No Discharge, No Urgency, No Pain, No Flank Pain, No Other, No , No , No , No , No , No , No Musculoskeletal: Yes Joint Pain, Yes Joint Stiffness Neurological: Yes Headaches; No Behavorial Changes, No Bowel/Bladder ControlChng, No Confusion, No Dizziness, No Gait Disturbance, No Impaired Coord/balance, No Memory Loss, No Numbness/Tingling, No Seizures, No Speech Problems, No Tremors, No Visual Changes, No Weakness, No Other Skin: No Dry Skin, No Eczema, No Hair Changes, No Lumps, No Mole Changes, No Mottling, No Nail Changes, No Pruritus, No Rash, No Skin Lesion Changes, No Other, No Acne Physical Exam General: Alert, Oriented X3 HEENT: Atraumatic, EOMI Lungs: Other (respirations aren't labored with symmetric chest rise) Heart: Regular rate Abdomen: Soft, No tenderness Extremities: No edema, Normal pulses Skin: Other (brownish discoloration over right tibial region, old healed incision anteriorly at his proximal tibial region, small eschars present in this. No erythema, fluctuance, cellulitic change present.) Neuro: Normal speech, Strength at 5/5 X4 ext, Sensation intact Psych/Mental Status: Mental status NL, Mood NL MUSCULOSKELETAL: Not examined, Other (examination of his left lower extremity reveals a mild knee effusion present. Knee is stable to varus and valgus. He is tender over his peripatellar tissues and medial compartment. He has superficial abrasions over his patellar region.) Vitals VITALS Vital Signs Date Time Temp Pulse Resp B/P (MAP) Pulse Ox O2 Delivery O2 Flow Rate FiO2 01/21/19 07:18 Room Air 01/21/19 07:00 97.5 70 20 153/81 (105) 92 97.5 Labs Labs Laboratory Tests Test 01/20/19 17:25 01/21/19 05:00 White Blood Count 10.2 x10^3/uL (4.0-11.0) 11.9 x10^3/uL (4.0-11.0) Red Blood Count 5.21 x10^6/uL (4.30-5.70) 4.97 x10^6/uL (4.30-5.70) Hemoglobin 16.8 g/dL (13.0-17.5) 15.6 g/dL (13.0-17.5) Hematocrit 48.2 % (39.0-53.0) 46.4 % (39.0-53.0) Mean Corpuscular Volume 93 fL (79-100) 94 fL (79-100) Mean Corpuscular Hemoglobin 32 pg (25-35) 31 pg (25-35) Mean Corpuscular Hemoglobin Concent 35 g/dL (31-37) 34 g/dL (31-37) Red Cell Distribution Width 13.7 % (11.5-14.5) 13.6 % (11.5-14.5) Platelet Count 160 x10^3/uL (140-400) 139 x10^3/uL (140-400) Neutrophils (%) (Auto) 58 % (31-73) 73 % (31-73) Lymphocytes (%) (Auto) 24 % (24-48) 13 % (24-48) Monocytes (%) (Auto) 15 % (0-9) 13 % (0-9) Eosinophils (%) (Auto) 2 % (0-3) 0 % (0-3) Basophils (%) (Auto) 1 % (0-3) 1 % (0-3) Neutrophils # (Auto) 5.9 x10^3uL (1.8-7.7) 8.7 x10^3uL (1.8-7.7) Lymphocytes # (Auto) 2.4 x10^3/uL (1.0-4.8) 1.6 x10^3/uL (1.0-4.8) Monocytes # (Auto) 1.6 x10^3/uL (0.0-1.1) 1.5 x10^3/uL (0.0-1.1) Eosinophils # (Auto) 0.2 x10^3/uL (0.0-0.7) 0.0 x10^3/uL (0.0-0.7) Basophils # (Auto) 0.1 x10^3/uL (0.0-0.2) 0.1 x10^3/uL (0.0-0.2) Prothrombin Time 14.4 SEC (11.7-14.0) Prothromb Time International Ratio 1.2 (0.8-1.1) Sodium Level 144 mmol/L (136-145) 145 mmol/L (136-145) Potassium Level 4.2 mmol/L (3.5-5.1) 3.6 mmol/L (3.5-5.1) Chloride Level 106 mmol/L (98-107) 107 mmol/L (98-107) Carbon Dioxide Level 25 mmol/L (21-32) 26 mmol/L (21-32) Anion Gap 13 (6-14) 12 (6-14) Blood Urea Nitrogen 17 mg/dL (8-26) 15 mg/dL (8-26) Creatinine 1.1 mg/dL (0.7-1.3) 1.1 mg/dL (0.7-1.3) Estimated GFR (Cockcroft-Gault) 64.6 64.6 BUN/Creatinine Ratio 15 (6-20) 14 (6-20) Glucose Level 121 mg/dL (70-99) 165 mg/dL (70-99) Calcium Level 9.5 mg/dL (8.5-10.1) 8.4 mg/dL (8.5-10.1) Total Bilirubin 0.9 mg/dL (0.2-1.0) 1.1 mg/dL (0.2-1.0) Aspartate Amino Transf (AST/SGOT) 39 U/L (15-37) 32 U/L (15-37) Alanine Aminotransferase (ALT/SGPT) 35 U/L (16-63) 31 U/L (16-63) Alkaline Phosphatase 67 U/L (46-116) 62 U/L (46-116) Total Protein 7.5 g/dL (6.4-8.2) 7.1 g/dL (6.4-8.2) Albumin 3.4 g/dL (3.4-5.0) 3.2 g/dL (3.4-5.0) Albumin/Globulin Ratio 0.8 (1.0-1.7) 0.8 (1.0-1.7) Laboratory Tests Test 01/20/19 17:25 01/21/19 05:00 White Blood Count 10.2 x10^3/uL (4.0-11.0) 11.9 x10^3/uL (4.0-11.0) Red Blood Count 5.21 x10^6/uL (4.30-5.70) 4.97 x10^6/uL (4.30-5.70) Hemoglobin 16.8 g/dL (13.0-17.5) 15.6 g/dL (13.0-17.5) Hematocrit 48.2 % (39.0-53.0) 46.4 % (39.0-53.0) Mean Corpuscular Volume 93 fL (79-100) 94 fL (79-100) Mean Corpuscular Hemoglobin 32 pg (25-35) 31 pg (25-35) Mean Corpuscular Hemoglobin Concent 35 g/dL (31-37) 34 g/dL (31-37) Red Cell Distribution Width 13.7 % (11.5-14.5) 13.6 % (11.5-14.5) Platelet Count 160 x10^3/uL (140-400) 139 x10^3/uL (140-400) Neutrophils (%) (Auto) 58 % (31-73) 73 % (31-73) Lymphocytes (%) (Auto) 24 % (24-48) 13 % (24-48) Monocytes (%) (Auto) 15 % (0-9) 13 % (0-9) Eosinophils (%) (Auto) 2 % (0-3) 0 % (0-3) Basophils (%) (Auto) 1 % (0-3) 1 % (0-3) Neutrophils # (Auto) 5.9 x10^3uL (1.8-7.7) 8.7 x10^3uL (1.8-7.7) Lymphocytes # (Auto) 2.4 x10^3/uL (1.0-4.8) 1.6 x10^3/uL (1.0-4.8) Monocytes # (Auto) 1.6 x10^3/uL (0.0-1.1) 1.5 x10^3/uL (0.0-1.1) Eosinophils # (Auto) 0.2 x10^3/uL (0.0-0.7) 0.0 x10^3/uL (0.0-0.7) Basophils # (Auto) 0.1 x10^3/uL (0.0-0.2) 0.1 x10^3/uL (0.0-0.2) Prothrombin Time 14.4 SEC (11.7-14.0) Prothromb Time International Ratio 1.2 (0.8-1.1) Sodium Level 144 mmol/L (136-145) 145 mmol/L (136-145) Potassium Level 4.2 mmol/L (3.5-5.1) 3.6 mmol/L (3.5-5.1) Chloride Level 106 mmol/L (98-107) 107 mmol/L (98-107) Carbon Dioxide Level 25 mmol/L (21-32) 26 mmol/L (21-32) Anion Gap 13 (6-14) 12 (6-14) Blood Urea Nitrogen 17 mg/dL (8-26) 15 mg/dL (8-26) Creatinine 1.1 mg/dL (0.7-1.3) 1.1 mg/dL (0.7-1.3) Estimated GFR (Cockcroft-Gault) 64.6 64.6 BUN/Creatinine Ratio 15 (6-20) 14 (6-20) Glucose Level 121 mg/dL (70-99) 165 mg/dL (70-99) Calcium Level 9.5 mg/dL (8.5-10.1) 8.4 mg/dL (8.5-10.1) Total Bilirubin 0.9 mg/dL (0.2-1.0) 1.1 mg/dL (0.2-1.0) Aspartate Amino Transf (AST/SGOT) 39 U/L (15-37) 32 U/L (15-37) Alanine Aminotransferase (ALT/SGPT) 35 U/L (16-63) 31 U/L (16-63) Alkaline Phosphatase 67 U/L (46-116) 62 U/L (46-116) Total Protein 7.5 g/dL (6.4-8.2) 7.1 g/dL (6.4-8.2) Albumin 3.4 g/dL (3.4-5.0) 3.2 g/dL (3.4-5.0) Albumin/Globulin Ratio 0.8 (1.0-1.7) 0.8 (1.0-1.7) Images Images Knee x-rays and CAT scan were reviewed. DJD is present. No acute fractures. Assessment/Plan Assessment/Plan From my standpoint, he can be mobilized as tolerated. I will hold off on any activity orders until he is able to be evaluated by neurosurgery for his C- spine fractures. I did discuss a cortisone injection with he and his for his left knee and they would like to try this. We will order up the supplies and do this later today or tomorrow. LUCAS SWAN II, MD Jan 21, 2019 09:40
[2019-01-21] MEDS: MORPHINE SULFATE 4 MG/ML VIAL. IV PRN (11:07)
[2019-01-21] MEDS ORDERED: LIDOCAINE 1% 20 ML VIAL. INJ ONE (15:30)
[2019-01-21] MEDS: HYDROcodone/APAP 10/325 1 TAB TABLET PO PRN (20:22)
--- NOTE | 2019-01-21 21:00 | NUR ---
Pt's vitals re-assessed d/t prior high BP reading, BP/HR WNL w/ O2 reading of 87%. 1L NC applied and pt's O2 sats now WNL. Pt resting in bed, call light within reach, and family at bedside, will continue to monitor.
[2019-01-22 03:00] VITALS: BP 157/78
--- NOTE | 2019-01-22 03:00 | NUR ---
Pt agitated and refusing to keep lunchroom monitor on at this time, will continue to monitor.
[2019-01-22] MEDS: INSULIN LISPRO 300 UNITS/3 ML INSULN.PEN. SQ SCH ×4 (06:00→18:00)
[2019-01-22 07:00] VITALS: BP 150/69
[2019-01-22] MEDS: VITAMIN B COMPLEX TABLET. PO SCH (08:04)
[2019-01-22] MEDS: ASCORBIC ACID 500 MG TABLET PO SCH (08:04)
[2019-01-22] MEDS: POTASSIUM CHLORIDE 10 MEQ TABLET.ER. PO SCH (08:04)
[2019-01-22] MEDS: GABAPENTIN 100 MG CAPSULE. PO SCH ×3 (08:04→21:01)
[2019-01-22] MEDS: MULTIVITAMIN with MINERAL TABLET. PO SCH (08:05)
[2019-01-22] MEDS: PANTOPRAZOLE 40 MG TABLET.DR. PO SCH (08:05)
[2019-01-22] MEDS: ISOSORBIDE MONONITRATE ER 30 MG TAB.ER.24H PO SCH (08:05)
[2019-01-22] MEDS: OMEGA-3 FATTY ACIDS/FISH OIL 1,000 MG CAPSULE. PO SCH (08:05)
[2019-01-22] MEDS: HYDROcodone/APAP 10/325 1 TAB TABLET PO PRN (08:41)
[2019-01-22] MEDS ORDERED: NON FORMULARY ITEM (Atenolol/Chlorthalidone (Atenolol-Chlorthal 50-25 Tb) 1 TAB) PO SCH (09:00)
[2019-01-22] MEDS ORDERED: methylPREDNISolone ACETATE 80 MG/ML VIAL. IM ONE (09:00)
[2019-01-22] MEDS ORDERED: LIDOCAINE 1% Multi-Dose 20 ML VIAL. INJ ONE (09:00)
[2019-01-22] MEDS ORDERED: methylPREDNISolone ACETATE 80 MG/ML VIAL. ONE (09:00)
--- NOTE | 2019-01-22 09:06 | CONS ---
DATE OF CONSULTATION: 01/21/2019 REASON FOR CONSULTATION: Cervical fracture. HISTORY OF PRESENT ILLNESS: The patient is a pleasant 78-year-old man who slipped on wet bricks the afternoon of admission yesterday and struck the top of his head. He did not lose consciousness. He said about an hour after the injury, he began to develop neck pain. He presented to the Emergency Room and had a laceration on the vertex closed and during that time studies were done of his cervical spine, in which fractures were seen. He denies any problems with balance or gait. He does have problems with knee pain. He did not notice any numbness or weakness in upper and lower extremities associated with the fall. PAST MEDICAL HISTORY: Includes GERD, OA, HTN, coronary artery disease, history of right tibial bone tumor. PAST SURGICAL HISTORY: Cholecystectomy. PERSONAL HISTORY: Does not smoke or drink alcohol. He is and lives with his . MEDICATIONS: Reviewed on the MRAD. ALLERGIES: No allergies to medications. REVIEW OF SYSTEMS: Performed of 12 points and other than outlined above is negative. PHYSICAL EXAMINATION: GENERAL APPEARANCE: Alert, pleasant, cooperative, in mild distress because of neck pain. A [place] type collar is in place. HEENT: Normocephalic. There is a laceration across the vertex, which is stapled. NEUROLOGIC: On cranial nerve testing, his pupils are equal. Extraocular motor function was normal. Facial motor and facial sensory examination was normal. His lower cranial nerves were intact. On motor testing, his strength was 5/5 in upper and lower extremities bilaterally. Sensory examination, it was intact to light touch in the upper and lower extremities with hypoactive reflexes. There was full range of motion of upper and lower extremities bilaterally. NECK: I did loosen the collar temporarily and palpated the posterior cervical region. There was [id number] tenderness in the superior posterior cervical region with palpation. I then replaced the collar. LABORATORY AND DIAGNOSTIC DATA: I have reviewed a CT scan of the neck. On that study, there is a type 2 odontoid fracture along with a nondisplaced right C1 laminar fracture. IMPRESSION: Cervical fractures as described above. RECOMMENDATIONS: With regard to the C1 laminar fracture, the vertebral artery passes near this and therefore CTA should be performed, which has been done and is negative. With regard to the type 2 fracture, I am going to have an MRI scan of the cervical spine performed tomorrow to evaluate for any ligamentous type injury. The alignment is excellent on the CT, however. Additionally, we will involve rehab medicine. I appreciate very much you asking us to see him. BROOKE LEVIN MD DR: DELICIA/chapo JOB#: [id number] / [id number] SB
[2019-01-22] MEDS ORDERED: ONDANSETRON PF 4 MG/2 ML VIAL. IV PRN (09:30)
[2019-01-22] MEDS ORDERED: MORPHINE SULFATE 2 MG/ML VIAL. IV PRN (09:30)
[2019-01-22] MEDS ORDERED: ACETAMINOPHEN/CODEINE 300/30MG TABLET. PO PRN (09:30)
[2019-01-22] MEDS ORDERED: ONDANSETRON ODT 4 MG TAB.RAPDIS. PO PRN (09:30)
--- NOTE | 2019-01-22 10:56 | PDOC ---
ORTHO PROGRESS NOTES Subjective Patient feeling ok with pain in left knee. Procedure Steroid injection left knee Vitals Vital Signs Date Time Temp Pulse Resp B/P (MAP) Pulse Ox O2 Delivery O2 Flow Rate FiO2 01/22/19 10:15 18 Room Air 01/22/19 08:05 68 150/69 01/22/19 07:00 98.7 94 2.0 98.7 Labs Laboratory Tests Test 01/20/19 17:25 01/21/19 05:00 01/21/19 17:04 01/21/19 23:59 White Blood Count 10.2 x10^3/uL (4.0-11.0) 11.9 x10^3/uL (4.0-11.0) Red Blood Count 5.21 x10^6/uL (4.30-5.70) 4.97 x10^6/uL (4.30-5.70) Hemoglobin 16.8 g/dL (13.0-17.5) 15.6 g/dL (13.0-17.5) Hematocrit 48.2 % (39.0-53.0) 46.4 % (39.0-53.0) Mean Corpuscular Volume 93 fL (79-100) 94 fL (79-100) Mean Corpuscular Hemoglobin 32 pg (25-35) 31 pg (25-35) Mean Corpuscular Hemoglobin Concent 35 g/dL (31-37) 34 g/dL (31-37) Red Cell Distribution Width 13.7 % (11.5-14.5) 13.6 % (11.5-14.5) Platelet Count 160 x10^3/uL (140-400) 139 x10^3/uL (140-400) Neutrophils (%) (Auto) 58 % (31-73) 73 % (31-73) Lymphocytes (%) (Auto) 24 % (24-48) 13 % (24-48) Monocytes (%) (Auto) 15 % (0-9) 13 % (0-9) Eosinophils (%) (Auto) 2 % (0-3) 0 % (0-3) Basophils (%) (Auto) 1 % (0-3) 1 % (0-3) Neutrophils # (Auto) 5.9 x10^3uL (1.8-7.7) 8.7 x10^3uL (1.8-7.7) Lymphocytes # (Auto) 2.4 x10^3/uL (1.0-4.8) 1.6 x10^3/uL (1.0-4.8) Monocytes # (Auto) 1.6 x10^3/uL (0.0-1.1) 1.5 x10^3/uL (0.0-1.1) Eosinophils # (Auto) 0.2 x10^3/uL (0.0-0.7) 0.0 x10^3/uL (0.0-0.7) Basophils # (Auto) 0.1 x10^3/uL (0.0-0.2) 0.1 x10^3/uL (0.0-0.2) Prothrombin Time 14.4 SEC (11.7-14.0) Prothromb Time International Ratio 1.2 (0.8-1.1) Sodium Level 144 mmol/L (136-145) 145 mmol/L (136-145) Potassium Level 4.2 mmol/L (3.5-5.1) 3.6 mmol/L (3.5-5.1) Chloride Level 106 mmol/L (98-107) 107 mmol/L (98-107) Carbon Dioxide Level 25 mmol/L (21-32) 26 mmol/L (21-32) Anion Gap 13 (6-14) 12 (6-14) Blood Urea Nitrogen 17 mg/dL (8-26) 15 mg/dL (8-26) Creatinine 1.1 mg/dL (0.7-1.3) 1.1 mg/dL (0.7-1.3) Estimated GFR (Cockcroft-Gault) 64.6 64.6 BUN/Creatinine Ratio 15 (6-20) 14 (6-20) Glucose Level 121 mg/dL (70-99) 165 mg/dL (70-99) Calcium Level 9.5 mg/dL (8.5-10.1) 8.4 mg/dL (8.5-10.1) Total Bilirubin 0.9 mg/dL (0.2-1.0) 1.1 mg/dL (0.2-1.0) Aspartate Amino Transf (AST/SGOT) 39 U/L (15-37) 32 U/L (15-37) Alanine Aminotransferase (ALT/SGPT) 35 U/L (16-63) 31 U/L (16-63) Alkaline Phosphatase 67 U/L (46-116) 62 U/L (46-116) Total Protein 7.5 g/dL (6.4-8.2) 7.1 g/dL (6.4-8.2) Albumin 3.4 g/dL (3.4-5.0) 3.2 g/dL (3.4-5.0) Albumin/Globulin Ratio 0.8 (1.0-1.7) 0.8 (1.0-1.7) Glucose (Fingerstick) 121 mg/dL (70-99) 113 mg/dL (70-99) Test 01/22/19 06:04 Glucose (Fingerstick) 116 mg/dL (70-99) Laboratory Tests Test 01/21/19 17:04 01/21/19 23:59 01/22/19 06:04 Glucose (Fingerstick) 121 mg/dL (70-99) 113 mg/dL (70-99) 116 mg/dL (70-99) Assessment and Plan Patient with a history of DJD left knee and had fall at home. After informed consent was received and sterile prep was applied the left knee was injected using 1% lidocaine and 80mg/ml depomedrol into the left knee through the lateral joint line without difficulty. The patient tolerated the procedure well. MARIPOSA DEL CID APRN Jan 22, 2019 10:56
[2019-01-22 11:00] VITALS: BP 140/65
--- NOTE | 2019-01-22 11:03 | NUR ---
COM[employer]ED [employer] OPERATOR from ortho gave steroid inj. in L knee. Meds non admin on Jan/ this nurse did not give.
--- NOTE | 2019-01-22 11:13 | PDOC ---
PROGRESS NOTES Chief Complaint Chief Complaint A/P: Acute traumatic type II C2 dens fracture and nondisplaced right C1 lamina fracture - Scalp laceration - HTN - will continue CAD - with LAD chronic occlusion, appears to have [employer] since 2016, medically managed. 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 Can continue wound care inpatient Left knee pain - no fx Met enceph sec to pain meds, expected COugh History of Present Illness History of Present Illness Still significant neck pain and headache at bedside relays to me confusion after pain medicines here in the hospital Before the accident, patient was ambulatory with no assistive device and no problems Asking for some cough medicine to break up his phlegm Plan: await MRI ordered by neurosurgery Will most likely need some sort of rehabilitation on discharge Continue present pain management and bowel regimen Watch out for further falls or encephalopathy Add pT.OT Home meds have been reconciled Robitussin when necessary Vitals Vitals Vital Signs Date Time Temp Pulse Resp B/P (MAP) Pulse Ox O2 Delivery O2 Flow Rate FiO2 01/22/19 10:15 18 Room Air 01/22/19 08:05 68 150/69 01/22/19 07:00 98.7 94 2.0 98.7 Physical Exam General: Alert, Oriented X3, Other (has a neck brace) Heart: Regular rate Lungs: Clear Abdomen: Soft, No tenderness Extremities: No clubbing, No cyanosis, No edema, Normal pulses Skin: No rashes, No breakdown, Other (brownish discoloration over right tibial region, old healed incision anteriorly at his proximal tibial region, small eschars present in this. No erythema, fluctuance, cellulitic change present.) Labs LABS Laboratory Tests Test 01/21/19 17:04 01/21/19 23:59 01/22/19 06:04 Glucose (Fingerstick) 121 mg/dL (70-99) 113 mg/dL (70-99) 116 mg/dL (70-99) Assessment and Plan Assessmemt and Plan Problems Medical Problems: (1) C1 cervical fracture Status: Acute (2) Dens fracture Status: Acute Comment Review of Relevant I have reviewed the following items bernard (where applicable) has been applied. Labs Laboratory Tests Test 01/20/19 17:25 01/21/19 05:00 01/21/19 17:04 01/21/19 23:59 White Blood Count 10.2 x10^3/uL (4.0-11.0) 11.9 x10^3/uL (4.0-11.0) Red Blood Count 5.21 x10^6/uL (4.30-5.70) 4.97 x10^6/uL (4.30-5.70) Hemoglobin 16.8 g/dL (13.0-17.5) 15.6 g/dL (13.0-17.5) Hematocrit 48.2 % (39.0-53.0) 46.4 % (39.0-53.0) Mean Corpuscular Volume 93 fL (79-100) 94 fL (79-100) Mean Corpuscular Hemoglobin 32 pg (25-35) 31 pg (25-35) Mean Corpuscular Hemoglobin Concent 35 g/dL (31-37) 34 g/dL (31-37) Red Cell Distribution Width 13.7 % (11.5-14.5) 13.6 % (11.5-14.5) Platelet Count 160 x10^3/uL (140-400) 139 x10^3/uL (140-400) Neutrophils (%) (Auto) 58 % (31-73) 73 % (31-73) Lymphocytes (%) (Auto) 24 % (24-48) 13 % (24-48) Monocytes (%) (Auto) 15 % (0-9) 13 % (0-9) Eosinophils (%) (Auto) 2 % (0-3) 0 % (0-3) Basophils (%) (Auto) 1 % (0-3) 1 % (0-3) Neutrophils # (Auto) 5.9 x10^3uL (1.8-7.7) 8.7 x10^3uL (1.8-7.7) Lymphocytes # (Auto) 2.4 x10^3/uL (1.0-4.8) 1.6 x10^3/uL (1.0-4.8) Monocytes # (Auto) 1.6 x10^3/uL (0.0-1.1) 1.5 x10^3/uL (0.0-1.1) Eosinophils # (Auto) 0.2 x10^3/uL (0.0-0.7) 0.0 x10^3/uL (0.0-0.7) Basophils # (Auto) 0.1 x10^3/uL (0.0-0.2) 0.1 x10^3/uL (0.0-0.2) Prothrombin Time 14.4 SEC (11.7-14.0) Prothromb Time International Ratio 1.2 (0.8-1.1) Sodium Level 144 mmol/L (136-145) 145 mmol/L (136-145) Potassium Level 4.2 mmol/L (3.5-5.1) 3.6 mmol/L (3.5-5.1) Chloride Level 106 mmol/L (98-107) 107 mmol/L (98-107) Carbon Dioxide Level 25 mmol/L (21-32) 26 mmol/L (21-32) Anion Gap 13 (6-14) 12 (6-14) Blood Urea Nitrogen 17 mg/dL (8-26) 15 mg/dL (8-26) Creatinine 1.1 mg/dL (0.7-1.3) 1.1 mg/dL (0.7-1.3) Estimated GFR (Cockcroft-Gault) 64.6 64.6 BUN/Creatinine Ratio 15 (6-20) 14 (6-20) Glucose Level 121 mg/dL (70-99) 165 mg/dL (70-99) Calcium Level 9.5 mg/dL (8.5-10.1) 8.4 mg/dL (8.5-10.1) Total Bilirubin 0.9 mg/dL (0.2-1.0) 1.1 mg/dL (0.2-1.0) Aspartate Amino Transf (AST/SGOT) 39 U/L (15-37) 32 U/L (15-37) Alanine Aminotransferase (ALT/SGPT) 35 U/L (16-63) 31 U/L (16-63) Alkaline Phosphatase 67 U/L (46-116) 62 U/L (46-116) Total Protein 7.5 g/dL (6.4-8.2) 7.1 g/dL (6.4-8.2) Albumin 3.4 g/dL (3.4-5.0) 3.2 g/dL (3.4-5.0) Albumin/Globulin Ratio 0.8 (1.0-1.7) 0.8 (1.0-1.7) Glucose (Fingerstick) 121 mg/dL (70-99) 113 mg/dL (70-99) Test 01/22/19 06:04 Glucose (Fingerstick) 116 mg/dL (70-99) Laboratory Tests Test 01/21/19 17:04 01/21/19 23:59 01/22/19 06:04 Glucose (Fingerstick) 121 mg/dL (70-99) 113 mg/dL (70-99) 116 mg/dL (70-99) Medications Current Medications Diphtheria/ Tetanus/Acell Pertussis (Boostrix) 0.5 ml ONCE ONCE VAX IM Last administered on 01/20/19 16:40; Start 01/20/19 at 16:00; Stop 01/20/19 at 16:01; Status DC Lidocaine HCl (Lidocaine 1% 20ml Vial) 20 ml 1X ONCE INJ Last administered on 01/20/19at 16:38; Start 01/20/19 at 16:00; Stop 01/20/19 at 16:01; Status DC Ondansetron HCl (Zofran) 4 mg PRN Q8HRS PRN IV NAUSEA/VOMITING; Start 01/20/19 at 17:45; Stop 01/21/19 at 17:44; Status DC Morphine Sulfate (Morphine Sulfate) 4 mg PRN Q2HR PRN IV PAIN Last administered on 01/21/19at 11:07; Start 01/20/19 at 17:45; Stop 01/21/19 at 17:44 ; Status DC Sodium Chloride 1,000 ml @ 125 mls/hr Q8H IV Last administered on 01/21/19at 06 :57; Start 01/20/19 at 17:32; Stop 01/21/19 at 17:31; Status DC Acetaminophen (Tylenol) 650 mg PRN Q4HRS PRN PO FEVER; Start 01/20/19 at 17:45; Stop 01/21/19 at 17:44; Status DC Iohexol (Omnipaque 350 Mg/ml) 100 ml 1X ONCE IV Last administered on 01/20/19at 18:50; Start 01/20/19 at 18:15; Stop 01/20/19 at 18:16; Status DC Info (CONTRAST GIVEN -- Rx MONITORING) 1 each PRN DAILY PRN MC SEE COMMENTS; Start 01/20/19 at 18:30; Stop 01/22/19 at 18:29 Gabapentin (Neurontin) 100 mg TID PO Last administered on 01/22/19at 08:04; Start 01/20/19 at 21:00 Acetaminophen/ Hydrocodone Bitart (Lortab 10) 1 tab PRN Q6HRS PRN PO SEVERE PAIN Last administered on 01/22/19at 08:41; Start 01/20/19 at 20:15 Isosorbide Mononitrate (Imdur) 30 mg DAILY PO Last administered on 01/22/19at 08 :05; Start 01/21/19 at 09:00 Potassium Chloride (Klor-Con) 10 meq DAILY PO Last administered on 01/22/19at 08 :04; Start 01/21/19 at 09:00 Tramadol HCl (Ultram) 50 mg PRN Q6HRS PRN PO MODERATE PAIN; Start 01/20/19 at 20 :15 Ascorbic Acid (Vitamin C) 1,000 mg DAILY PO Last administered on 01/22/19at 08: 04; Start 01/21/19 at 09:00 Non-Formulary Medication (Atenolol/ Chlorthalidone (Atenolol-Chlorthal 50-25 Tb) ) 1 tab QODAY PO ; Start 01/22/19 at 09:00; Status UNV Pantoprazole Sodium (Protonix) 40 mg DAILYAC PO Last administered on 01/22/19at 08:05; Start 01/21/19 at 07:30 Non-Formulary Medication (Ginkgo Biloba Extract (Ginkgo Biloba)) 120 mg DAILY PO ; Start 01/21/19 at 09:00; Status UNV Non-Formulary Medication (Glucosamine/ Chondroitin Sulf A (Glucosamine Chondroitin Cap)) 1 each DAILY PO ; Start 01/21/19 at 09:00; Status UNV Fish Oil (Fish Oil) 1,000 mg DAILY PO Last administered on 01/22/19at 08:05; Start 01/21/19 at 09:00 Non-Formulary Medication (Lecithin, Soy (Lecithin)) 400 mg DAILY PO ; Start 09/01 at 09:00; Status UNV Multivitamins (Thera M Plus) 1 tab DAILY PO Last administered on 01/22/19at 08: 05; Start 01/21/19 at 09:00 Vitamin B Complex (Rodríguez B) 1 tab DAILY PO Last administered on 01/22/19at 08:04 ; Start 01/21/19 at 09:00 Labetalol HCl (Normodyne Iv Push) 10 mg PRN Q4HRS PRN IVP HYPERTENSION, SEE COMMENTS Last administered on 01/21/19at 04:28; Start 01/20/19 at 20:30 Atenolol (Tenormin) 50 mg Q48H PO ; Start 01/21/19 at 09:00 Chlorthalidone (Thalitone) 25 mg Q48H PO ; Start 01/21/19 at 09:00 Lorazepam (Ativan) 0.5 mg PRN Q6HRS PRN IV ANXIETY / AGITATION Last administered on 01/21/19at 20:22; Start 01/20/19 at 22:15 Fentanyl Citrate (Fentanyl 2ml Vial) 50 mcg PRN Q3HRS PRN IV MODERATE-SEVERE PAIN Last administered on 01/21/19at 06:56; Start 01/20/19 at 22:15 Potassium Chloride (Klor-Con) 40 meq 1X ONCE PO ; Start 01/21/19 at 09:30; Stop 01/21/19 at 09:31; Status DC Insulin Human Lispro (HumaLOG) 0-5 UNITS Q6HRS SQ ; Start 01/21/19 at 09:30 Dextrose (Dextrose 50%-Water Syringe) 12.5 gm PRN Q15MIN PRN IV SEE COMMENTS; Start 01/21/19 at 09:30 Methylprednisolone Acetate (DEPO-Medrol 80MG VIAL) 80 mg 1X ONCE IM ; Start 10/02 at 09:00; Stop 01/22/19 at 09:01; Status DC Lidocaine HCl 10 ml 1X ONCE INJ ; Start 01/21/19 at 15:30; Stop 01/21/19 at 15: 31; Status DC Lidocaine HCl (Lidocaine 1% 20ml Vial) 20 ml 1X ONCE INJ ; Start 01/22/19 at 09 :00; Stop 01/22/19 at 09:01; Status DC Acetaminophen (Tylenol) 500 mg PRN Q6HRS PRN PO MILD PAIN / TEMP; Start at 09:30 Acetaminophen/ Codeine Phosphate (Tylenol #3) 1 tab PRN Q6HRS PRN PO MILD PAIN 2ND CHOICE; Start 01/22/19 at 09:30 Ondansetron HCl (Zofran) 4 mg PRN Q6HRS PRN IV NAUSEA/VOMITING; Start 01/22/19 at 09:30 Ondansetron HCl (Zofran Odt) 4 mg PRN Q6HRS PRN PO NAUSEA/VOMITING; Start 01/22 at 09:30 Morphine Sulfate (Morphine Sulfate) 2 mg PRN Q2HR PRN IV MILD PAIN; Start 01/22 at 09:30 Active Scripts Active Isosorbide Mononitrate Er (Isosorbide Mononitrate) 30 Mg Tab.er.24h 30 Mg PO DAILY Reported Ginkgo Biloba (Ginkgo Biloba Extract) 120 Mg Capsule 120 Mg PO DAILY Calcium + Vit D & K Chew Tab (Ca Carbonate/Vitamin D3/Vit K) 1 Each Tab.chew 1 Each PO DAILY Vitamin C (Ascorbic Acid) 1,000 Mg Tablet 1,000 Mg PO DAILY Vitamin E (Vitamin E (Dl,Tocopheryl Acet)) 400 Unit Capsule 400 Unit PO DAILY Vitamin B Complex 1 Each Capsule 1 Each PO DAILY Lecithin (Lecithin, Soy) 400 Mg Capsule 400 Mg PO DAILY Glucosamine Chondroitin Cap (Glucosamine/Chondroitin Sulf A) 1 Each Capsule 1 Each PO DAILY [place]-3 Krill Oil Softgel (Krill Oil/[place]-3/Dha/Epa) 1 Each Capsule 1 Each PO DAILY Ibuprofen 200 Mg Tablet 200 Mg PO PRN Q6HRS PRN Lansoprazole 15 Mg Capsule.dr 15 Mg PO DAILY Percocet 10-325 Mg Tablet (Oxycodone/Acetaminophen) 1 Each Tablet 1 Tab PO PRN Q6HRS PRN Furosemide 40 Mg Tablet 1 Tab PO DAILY PRN Potassium Chloride 10 Meq Capsule.er 1 Cap PO DAILY Carafate (Sucralfate) 1 Gm/10 Ml Oral.susp 1 Gm PO PRN Gabapentin (Gabapentin) 100 Mg Capsule 100 Mg PO TID Pradaxa (Dabigatran Etexilate Mesylate) 150 Mg Capsule 1 Cap PO BID Nexium Capsule (Esomeprazole Magnesium) 40 Mg Capsule. 1 Cap PO DAILY Tramadol Hcl 50 Mg Tablet 50-100 Mg PO Q4-6HRS PRN Hydrocodone-Apap 10-325 (Hydrocodone Bit/Acetaminophen) 1 Each Tablet 1 Tab PO PRN Q6HRS PRN Vitamin D3 (Cholecalciferol (Vitamin D3)) 400 Unit Tablet 400 Unit PO Multivitamins (Multivitamin) 1 Each Tablet 1 Each PO DAILY Atenolol-Chlorthal 50-25 Tb (Atenolol/Chlorthalidone) 1 Each Tablet 1 Tab PO QODAY Vitals/I & O Vital Sign - Last 24 Hours 01/21/19 01/21/19 01/21/19 01/21/19 11:37 15:00 19:30 20:22 Temp 97.8 97.8 97.8 97.8 Pulse 68 68 Resp 20 20 20 B/P (MAP) 146/76 (99) 177/78 (111) Pulse Ox 92 93 O2 Delivery Room Air Room Air Room Air Room Air 01/21/19 01/21/19 01/21/19 01/21/19 20:30 20:45 21:29 23:00 Temp 98.5 98.5 Pulse 69 65 Resp 20 18 B/P (MAP) 134/89 (104) 162/80 (107) Pulse Ox 94 92 94 O2 Delivery Room Air Nasal Cannula Nasal Cannula O2 Flow Rate 1.0 1.0 1.0 01/22/19 01/22/19 01/22/19 01/22/19 03:00 07:00 08:05 08:41 Temp 97.9 98.7 97.9 98.7 Pulse 62 68 68 Resp 18 18 20 B/P (MAP) 157/78 (104) 150/69 (96) 150/69 Pulse Ox 93 94 O2 Delivery Nasal Cannula Nasal Cannula Room Air O2 Flow Rate 1.0 2.0 01/22/19 10:15 Resp 18 O2 Delivery Room Air Intake and Output 01/21/19 01/21/19 01/22/19 14:59 22:59 06:59 Intake Total 100 ml Output Total 625 ml Balance 100 ml -625 ml NORMA SANDOVAL MD Jan 22, 2019 11:12
[2019-01-22] MEDS: guaiFENesin DM 200MG/20MG 10 ML SYRUP PO SCH ×3 (11:53→21:01)
--- NOTE | 2019-01-22 11:56 | RAD ---
EXAM: Cervical spine MRI without contrast. HISTORY: C2 fracture. TECHNIQUE: Multiplanar, multisequence magnetic resonance imaging of the cervical spine was performed without contrast. COMPARISON: CT dated 01/20/2019. FINDINGS: There is linear T1 and T2 hypointensity involving the base of the dens, consistent with a recently demonstrated minimally displaced fracture. There is no significant edema along the fracture line. There is no marrow edema at the remainder of the cervical or upper thoracic levels to suggest fracture. There is edema within the posterior neck soft tissues which may be dependent in etiology or due to a muscular strain injury. There is minimal anterolisthesis of C6 on C7, C7 on T1 and the upper thoracic levels. There is mild thoracic kyphoscoliosis. There is degenerative endplate remodeling with disc space narrowing and osteophytosis at the majority of the cervical vertebral levels. No suspicious osseous lesion is seen. No suspicious spinal cord lesion is seen. There is an empty nonexpanded sella. There is cerebral and cerebellar volume loss. There is T2 hyperintensity within the retropharyngeal/prevertebral space extending from the oropharynx to C5-C6, measuring approximately 8 mm in maximum thickness. At C2-C3, there is mild endplate remodeling. There is mild bilateral facet arthropathy. There is no stenosis. At C3-C4, there are right greater than left posterior lateral disc osteophyte complexes superimposed on endplate remodeling. There is moderate to severe bilateral facet arthropathy. There is bilateral uncovertebral therapy. There is severe right and moderate to severe left foraminal stenosis. There is mild central canal stenosis measuring 8.9 mm in anterior posterior dimension. At C4-C5, there is a right lateral predominant disc bulge and endplate osteophytosis. There is severe right and moderate left facet arthropathy. There is bilateral uncovertebral therapy. There is moderate right and mild left foraminal stenosis. There is mild central canal stenosis measuring 9.3 mm in anterior posterior dimension. At C5-C6, there is a left posterior lateral disc osteophyte complex superimposed on a disc bulge and endplate osteophytosis. There is severe right and moderate left facet arthropathy. There is left greater than right uncovertebral therapy. There is moderate severe right and severe left foraminal stenosis. At C6-C7, there is a disc bulge and endplate remodeling. There is severe bilateral facet arthropathy. There is no stenosis. IMPRESSION: 1. Minimally displaced fractures of the base of the dens. This is better characterized on the recent CT. There is no significant associated marrow edema along the fracture line. There is no clear MRI correlate for the reported nondisplaced right C1 lamina fracture described on the recent CT. 2. Prevertebral/retropharyngeal fluid collection from the nasopharynx to C5-C6 measuring 8 mm in thickness. Given a history of recent trauma, this may be due to a small soft tissue hematoma. The possibility of edema related to recent intubation can also be considered in the appropriate clinical setting. 3. Multilevel degenerative change throughout the cervical spine, described in detail above. This results in stenosis as before mentioned levels. 4. Edema within the posterior neck soft tissues, possibly dependent in etiology or due to a muscular strain type injury. Electronically signed by: Julienne Zavala MD (01/22/2019 11:53 AM) [id number]
--- NOTE | 2019-01-22 12:21 | NUR ---
SW following for discharge planning. Discussed with RN, pt is from home with . SW has referral for rehab, SW awaiting PT/OT to meet with pt. SW will continue to follow.
--- NOTE | 2019-01-22 12:47 | NUR ---
Patient on GI soft diet yet asked if she could try a FLD tray for him since he did not eat much of his tray, tray ordered and ensure given as well.
[2019-01-22 15:00] VITALS: BP 113/72
--- NOTE | 2019-01-22 16:51 | PDOC ---
PROGRESS NOTES Subjective Subjective patient seen at 1445 up in chair mild neck pain Objective Objective Vital Signs Date Time Temp Pulse Resp B/P (MAP) Pulse Ox O2 Delivery O2 Flow Rate FiO2 01/22/19 15:00 98.1 72 18 113/72 (86) 93 Room Air 98.1 01/22/19 07:00 2.0 Intake and Output 01/22/19 07:00 Intake Total 100 ml Output Total 625 ml Balance -525 ml Intake Oral 100 ml Output Urine Total 625 ml Physical Exam General: Alert, Oriented X3, Cooperative, Other (hard collar on) MUSCULOSKELETAL: Other (KATZ) Assessment Assessment Problems Medical Problems: (1) C1 cervical fracture Status: Acute (2) Dens fracture Status: Acute Plan Plan of Care ordered better fitting hard collar Dr. Amanda consulted will need to follow up with me in 3 to 4 weeks with cervical spine films will likely need to wear collar 12 weeks Comment Review of Relevant I have reviewed the following items bernard (where applicable) has been applied. Labs Laboratory Tests Test 01/20/19 17:25 01/21/19 05:00 01/21/19 17:04 01/21/19 23:59 White Blood Count 10.2 x10^3/uL (4.0-11.0) 11.9 x10^3/uL (4.0-11.0) Red Blood Count 5.21 x10^6/uL (4.30-5.70) 4.97 x10^6/uL (4.30-5.70) Hemoglobin 16.8 g/dL (13.0-17.5) 15.6 g/dL (13.0-17.5) Hematocrit 48.2 % (39.0-53.0) 46.4 % (39.0-53.0) Mean Corpuscular Volume 93 fL (79-100) 94 fL (79-100) Mean Corpuscular Hemoglobin 32 pg (25-35) 31 pg (25-35) Mean Corpuscular Hemoglobin Concent 35 g/dL (31-37) 34 g/dL (31-37) Red Cell Distribution Width 13.7 % (11.5-14.5) 13.6 % (11.5-14.5) Platelet Count 160 x10^3/uL (140-400) 139 x10^3/uL (140-400) Neutrophils (%) (Auto) 58 % (31-73) 73 % (31-73) Lymphocytes (%) (Auto) 24 % (24-48) 13 % (24-48) Monocytes (%) (Auto) 15 % (0-9) 13 % (0-9) Eosinophils (%) (Auto) 2 % (0-3) 0 % (0-3) Basophils (%) (Auto) 1 % (0-3) 1 % (0-3) Neutrophils # (Auto) 5.9 x10^3uL (1.8-7.7) 8.7 x10^3uL (1.8-7.7) Lymphocytes # (Auto) 2.4 x10^3/uL (1.0-4.8) 1.6 x10^3/uL (1.0-4.8) Monocytes # (Auto) 1.6 x10^3/uL (0.0-1.1) 1.5 x10^3/uL (0.0-1.1) Eosinophils # (Auto) 0.2 x10^3/uL (0.0-0.7) 0.0 x10^3/uL (0.0-0.7) Basophils # (Auto) 0.1 x10^3/uL (0.0-0.2) 0.1 x10^3/uL (0.0-0.2) Prothrombin Time 14.4 SEC (11.7-14.0) Prothromb Time International Ratio 1.2 (0.8-1.1) Sodium Level 144 mmol/L (136-145) 145 mmol/L (136-145) Potassium Level 4.2 mmol/L (3.5-5.1) 3.6 mmol/L (3.5-5.1) Chloride Level 106 mmol/L (98-107) 107 mmol/L (98-107) Carbon Dioxide Level 25 mmol/L (21-32) 26 mmol/L (21-32) Anion Gap 13 (6-14) 12 (6-14) Blood Urea Nitrogen 17 mg/dL (8-26) 15 mg/dL (8-26) Creatinine 1.1 mg/dL (0.7-1.3) 1.1 mg/dL (0.7-1.3) Estimated GFR (Cockcroft-Gault) 64.6 64.6 BUN/Creatinine Ratio 15 (6-20) 14 (6-20) Glucose Level 121 mg/dL (70-99) 165 mg/dL (70-99) Calcium Level 9.5 mg/dL (8.5-10.1) 8.4 mg/dL (8.5-10.1) Total Bilirubin 0.9 mg/dL (0.2-1.0) 1.1 mg/dL (0.2-1.0) Aspartate Amino Transf (AST/SGOT) 39 U/L (15-37) 32 U/L (15-37) Alanine Aminotransferase (ALT/SGPT) 35 U/L (16-63) 31 U/L (16-63) Alkaline Phosphatase 67 U/L (46-116) 62 U/L (46-116) Total Protein 7.5 g/dL (6.4-8.2) 7.1 g/dL (6.4-8.2) Albumin 3.4 g/dL (3.4-5.0) 3.2 g/dL (3.4-5.0) Albumin/Globulin Ratio 0.8 (1.0-1.7) 0.8 (1.0-1.7) Glucose (Fingerstick) 121 mg/dL (70-99) 113 mg/dL (70-99) Test 01/22/19 06:04 01/22/19 11:51 01/22/19 16:31 Glucose (Fingerstick) 116 mg/dL (70-99) 132 mg/dL (70-99) 146 mg/dL (70-99) Laboratory Tests Test 01/21/19 17:04 01/21/19 23:59 01/22/19 06:04 01/22/19 11:51 Glucose (Fingerstick) 121 mg/dL (70-99) 113 mg/dL (70-99) 116 mg/dL (70-99) 132 mg/dL (70-99) Test 01/22/19 16:31 Glucose (Fingerstick) 146 mg/dL (70-99) Medications Current Medications Diphtheria/ Tetanus/Acell Pertussis (Boostrix) 0.5 ml ONCE ONCE VAX IM Last administered on 01/20/19at 16:40; Start 3/9/19 at 16:00; Stop 01/20/19 at 16:01; Status DC Lidocaine HCl (Lidocaine 1% 20ml Vial) 20 ml 1X ONCE INJ Last administered on 01/20/19at 16:38; Start 01/20/19 at 16:00; Stop 01/20/19 at 16:01; Status DC Ondansetron HCl (Zofran) 4 mg PRN Q8HRS PRN IV NAUSEA/VOMITING; Start 01/20/19 at 17:45; Stop 01/21/19 at 17:44; Status DC Morphine Sulfate (Morphine Sulfate) 4 mg PRN Q2HR PRN IV PAIN Last administered on 01/21/19at 11:07; Start 01/20/19 at 17:45; Stop 01/21/19 at 17:44 ; Status DC Sodium Chloride 1,000 ml @ 125 mls/hr Q8H IV Last administered on 01/21/19at 06 :57; Start 01/20/19 at 17:32; Stop 01/21/19 at 17:31; Status DC Acetaminophen (Tylenol) 650 mg PRN Q4HRS PRN PO FEVER; Start 01/20/19 at 17:45; Stop 01/21/19 at 17:44; Status DC Iohexol (Omnipaque 350 Mg/ml) 100 ml 1X ONCE IV Last administered on 01/20/19at 18:50; Start 01/20/19 at 18:15; Stop 01/20/19 at 18:16; Status DC Info (CONTRAST GIVEN -- Rx MONITORING) 1 each PRN DAILY PRN MC SEE COMMENTS; Start 01/20/19 at 18:30; Stop 01/22/19 at 18:29 Gabapentin (Neurontin) 100 mg TID PO Last administered on 01/22/19at 14:48; Start 01/20/19 at 21:00 Acetaminophen/ Hydrocodone Bitart (Lortab 10/325) 1 tab PRN Q6HRS PRN PO SEVERE PAIN Last administered on 01/22/19at 08:41; Start 01/20/19 at 20:15 Isosorbide Mononitrate (Imdur) 30 mg DAILY PO Last administered on 01/22/19at 08 :05; Start 01/21/19 at 09:00 Potassium Chloride (Klor-Con) 10 meq DAILY PO Last administered on 01/22/19 08 :04; Start 01/21/19 at 09:00 Tramadol HCl (Ultram) 50 mg PRN Q6HRS PRN PO MODERATE PAIN; Start 01/20/19 at 20 :15 Ascorbic Acid (Vitamin C) 1,000 mg DAILY PO Last administered on 01/22/19 08: 04; Start 01/21/19 at 09:00 Non-Formulary Medication (Atenolol/ Chlorthalidone (Atenolol-Chlorthal 50-25 Tb) ) 1 tab QODAY PO ; Start 01/22/19 at 09:00; Status UNV Pantoprazole Sodium (Protonix) 40 mg DAILYAC PO Last administered on 01/22/19 08:05; Start 01/21/19 at 07:30 Non-Formulary Medication (Ginkgo Biloba Extract (Ginkgo Biloba)) 120 mg DAILY PO ; Start 01/21/19 at 09:00; Status UNV Non-Formulary Medication (Glucosamine/ Chondroitin Sulf A (Glucosamine Chondroitin Cap)) 1 each DAILY PO ; Start 01/21/19 at 09:00; Status UNV Fish Oil (Fish Oil) 1,000 mg DAILY PO Last administered on 01/22/19 08:05; Start 01/21/19 at 09:00 Non-Formulary Medication (Lecithin, Soy (Lecithin)) 400 mg DAILY PO ; Start 09/01 at 09:00; Status UNV Multivitamins (Thera M Plus) 1 tab DAILY PO Last administered on 01/22/19at 08: 05; Start 01/21/19 at 09:00 Vitamin B Complex (Rodríguez B) 1 tab DAILY PO Last administered on 01/22/19 08:04 ; Start 01/21/19 at 09:00 Labetalol HCl (Normodyne Iv Push) 10 mg PRN Q4HRS PRN IVP HYPERTENSION, SEE COMMENTS Last administered on 01/21/19at 04:28; Start 01/20/19 at 20:30 Atenolol (Tenormin) 50 mg Q48H PO ; Start 01/21/19 at 09:00 Chlorthalidone (Thalitone) 25 mg Q48H PO ; Start 01/21/19 at 09:00 Lorazepam (Ativan) 0.5 mg PRN Q6HRS PRN IV ANXIETY / AGITATION Last administered on 01/21/19at 20:22; Start 01/20/19 at 22:15 Fentanyl Citrate (Fentanyl 2ml Vial) 50 mcg PRN Q3HRS PRN IV MODERATE-SEVERE PAIN Last administered on 01/21/19at 06:56; Start 01/20/19 at 22:15 Potassium Chloride (Klor-Con) 40 meq 1X ONCE PO ; Start 01/21/19 at 09:30; Stop 01/21/19 at 09:31; Status DC Insulin Human Lispro (HumaLOG) 0-5 UNITS Q6HRS SQ ; Start 01/21/19 at 09:30 Dextrose (Dextrose 50%-Water Syringe) 12.5 gm PRN Q15MIN PRN IV SEE COMMENTS; Start 01/21/19 at 09:30 Methylprednisolone Acetate (DEPO-Medrol 80MG VIAL) 80 mg 1X ONCE IM ; Start 10/02 at 09:00; Stop 01/22/19 at 09:01; Status DC Lidocaine HCl 10 ml 1X ONCE INJ ; Start 01/21/19 at 15:30; Stop 01/21/19 at 15: 31; Status DC Lidocaine HCl (Lidocaine 1% 20ml Vial) 20 ml 1X ONCE INJ ; Start 01/22/19 at 09 :00; Stop 01/22/19 at 09:01; Status DC Acetaminophen (Tylenol) 500 mg PRN Q6HRS PRN PO MILD PAIN / TEMP; Start at 09:30 Acetaminophen/ Codeine Phosphate (Tylenol #3) 1 tab PRN Q6HRS PRN PO MILD PAIN 2ND CHOICE; Start 01/22/19 at 09:30 Ondansetron HCl (Zofran) 4 mg PRN Q6HRS PRN IV NAUSEA/VOMITING; Start 01/22/19 at 09:30 Ondansetron HCl (Zofran Odt) 4 mg PRN Q6HRS PRN PO NAUSEA/VOMITING; Start 01/22 at 09:30 Morphine Sulfate (Morphine Sulfate) 2 mg PRN Q2HR PRN IV MILD PAIN; Start 01/22 at 09:30 Guaifenesin (Robitussin Dm) 10 ml QID PO Last administered on 01/22/19at 11:53; Start 01/22/19 at 11:30 Methylprednisolone Acetate (DEPO-Medrol 80MG VIAL) 80 mg STK-MED ONCE .ROUTE ; Start 01/22/19 at 09:00; Stop 01/22/19 at 15:56; Status DC Active Scripts Active Isosorbide Mononitrate Er (Isosorbide Mononitrate) 30 Mg Tab.er.24h 30 Mg PO DAILY Reported Ginkgo Biloba (Ginkgo Biloba Extract) 120 Mg Capsule 120 Mg PO DAILY Calcium + Vit D & K Chew Tab (Ca Carbonate/Vitamin D3/Vit K) 1 Each Tab.chew 1 Each PO DAILY Vitamin C (Ascorbic Acid) 1,000 Mg Tablet 1,000 Mg PO DAILY Vitamin E (Vitamin E (Dl,Tocopheryl Acet)) 400 Unit Capsule 400 Unit PO DAILY Vitamin B Complex 1 Each Capsule 1 Each PO DAILY Lecithin (Lecithin, Soy) 400 Mg Capsule 400 Mg PO DAILY Glucosamine Chondroitin Cap (Glucosamine/Chondroitin Sulf A) 1 Each Capsule 1 Each PO DAILY Jal-3 Krill Oil Softgel (Krill Oil/Jal-3/Dha/Epa) 1 Each Capsule 1 Each PO DAILY Ibuprofen 200 Mg Tablet 200 Mg PO PRN Q6HRS PRN Lansoprazole 15 Mg Capsule.dr 15 Mg PO DAILY Percocet 10-325 Mg Tablet (Oxycodone/Acetaminophen) 1 Each Tablet 1 Tab PO PRN Q6HRS PRN Furosemide 40 Mg Tablet 1 Tab PO DAILY PRN Potassium Chloride 10 Meq Capsule.er 1 Cap PO DAILY Carafate (Sucralfate) 1 Gm/10 Ml Oral.susp 1 Gm PO PRN Gabapentin (Gabapentin) 100 Mg Capsule 100 Mg PO TID Pradaxa (Dabigatran Etexilate Mesylate) 150 Mg Capsule 1 Cap PO BID Nexium Capsule (Esomeprazole Magnesium) 40 Mg Capsule.dr 1 Cap PO DAILY Tramadol Hcl 50 Mg Tablet 50-100 Mg PO Q4-6HRS PRN Hydrocodone-Apap 10-325 (Hydrocodone Bit/Acetaminophen) 1 Each Tablet 1 Tab PO PRN Q6HRS PRN Vitamin D3 (Cholecalciferol (Vitamin D3)) 400 Unit Tablet 400 Unit PO Multivitamins (Multivitamin) 1 Each Tablet 1 Each PO DAILY Atenolol-Chlorthal 50-25 Tb (Atenolol/Chlorthalidone) 1 Each Tablet 1 Tab PO QODAY Vitals/I & O Vital Sign - Last 24 Hours 01/21/19 01/21/19 01/21/19 01/21/19 19:30 20:22 20:30 20:45 Temp 97.8 97.8 Pulse 68 69 Resp 20 20 20 B/P (MAP) 177/78 (111) 134/89 (104) Pulse Ox 93 94 O2 Delivery Room Air Room Air Room Air Nasal Cannula O2 Flow Rate 1.0 01/21/19 01/21/19 01/22/19 01/22/19 21:29 23:00 03:00 07:00 Temp 98.5 97.9 98.7 98.5 97.9 98.7 Pulse 65 62 68 Resp 18 18 18 B/P (MAP) 162/80 (107) 157/78 (104) 150/69 (96) Pulse Ox 92 94 93 94 O2 Delivery Nasal Cannula Nasal Cannula Nasal Cannula O2 Flow Rate 1.0 1.0 1.0 2.0 01/22/19 01/22/19 01/22/19 01/22/19 08:00 08:05 08:41 10:15 Pulse 68 Resp 20 18 B/P (MAP) 150/69 O2 Delivery Room Air Room Air Room Air 01/22/19 01/22/19 11:00 15:00 Temp 98.6 98.1 98.6 98.1 Pulse 72 72 Resp 18 18 B/P (MAP) 140/65 (90) 113/72 (86) Pulse Ox 96 93 O2 Delivery Room Air Room Air Intake and Output 01/21/19 01/21/19 01/22/19 15:00 23:00 07:00 Intake Total 100 ml Output Total 625 ml Balance 100 ml -625 ml BROOKE LEVIN MD Jan 22, 2019 16:51
[2019-01-22 19:00] VITALS: BP 128/71
[2019-01-22 23:00] VITALS: BP 128/70
[2019-01-22] MEDS: ACETAMINOPHEN 500 MG TABLET PO PRN (23:26)
--- NOTE | 2019-01-22 23:30 | NUR ---
Patient c/o "discomfort" r/t C collar, Tylenol given po. Patient states he has "chronic" dysphagia. None noted w/ pills and water. Voided 200 cc per urinal, bladder scan done by TABATHA Montalvo shows zero.
[2019-01-23 03:00] VITALS: BP 153/79
[2019-01-23] MEDS: INSULIN LISPRO 300 UNITS/3 ML INSULN.PEN. SQ SCH ×4 (06:00→18:00)
[2019-01-23 07:00] VITALS: BP 138/78
[2019-01-23] MEDS: PANTOPRAZOLE 40 MG TABLET.DR. PO SCH (07:49)
--- NOTE | 2019-01-23 08:49 | CONS ---
DATE OF CONSULTATION: 01/22/2019 ATTENDING PHYSICIAN: Dr. Valentin. The patient was seen at the request of Dr. Moralez for rehab evaluation. HISTORY OF PRESENT ILLNESS: This is a 78-year-old male, with gastroesophageal reflux disease, osteoarthritis, hypertension, coronary artery disease, right tibial bone tumor, osteosarcoma status post radiation, admitted on 01/20/2019 after a fall and injured his head. He slipped on wet bricks on the afternoon of admission hitting his head. No loss of consciousness. No change in his vision. No syncopal episodes, chest pain or palpitations. He complains of some left knee discomfort after the fall. The patient received 6 narda across the crown of the head in the Emergency Room and he underwent trauma series of head and neck revealing an acute traumatic type 2 C2 dens fracture and nondisplaced right C1 lamina fracture. Left knee x-ray revealed transverse linear subcortical lucency in the medial tibial plateau, which could also be a fracture. The patient with known peripheral neuropathy, osteoarthritis, status post cholecystectomy. FAMILY HISTORY: Hypertension and hyperlipidemia. ALLERGIES: He is not known allergic to any medication. SOCIAL HISTORY: He lives with his in [facility]. He does not smoke. The patient had MRI scan of cervical vertebrae done this morning, which failed to reveal any evidence of L1 lamina fracture. It showed minimally displaced fractures of the base of the dens. No significant associated marrow edema along the fracture line, prevertebral and retropharyngeal fluid collection from the nasopharynx to C5-C6 measuring 8 mm in thickness, might be a small soft tissue hematoma, possibility of edema related to recent intubation can also be considered. Also, multilevel degenerative change in cervical spine with some degree of central spinal and neural foraminal compromise, edema within the posterior neck soft tissue, probably dependent in etiology or due to muscular strain type injury. He had CTA of the neck done, which failed to reveal any significant stenosis, dissection or aneurysm, thrombosis or occlusion of the cervical carotid and vertebral arteries. Left knee x-ray revealed nonspecific 6 cm sclerotic bone lesion and osteoarthritic changes and mild knee joint effusion and small Donato cyst in his left knee. CT scan of the brain failed to reveal any acute abnormalities. The patient admits some neck pain. He denies any radiation of pain to the extremities or any tingling, numbness sensation in the extremities or any trouble with his bowel or bladder control. He is having some difficulty swallowing solid food with his cervical collar in place. The patient, prior to the present hospitalization, has been independent with his mobility and self-care skills, not using assistive devices to get around. He had stairs to manage to get in the house. Once in the house, there are not many steps to manage, all are one level for him to get around. The patient lives with his . PHYSICAL EXAMINATION: Today revealed an elderly male. He is alert, oriented to time, place, person and circumstance and follows commands appropriately, moves all 4 extremities voluntarily where he had 4+/5 grade muscle strength. Deep tendon reflexes are 1-2+ and symmetrical in the upper extremities, exaggerated at both knees. He had equal perception of touch and pinprick sensation bilaterally. He had [place] cervical collar in place. No significant tenderness to palpation over thoracic or lumbar spine area. He had skin abrasion over left knee dorsal aspect, pain free range of motion of all 4 extremity joints. The patient is independent with bed mobility and transfers. Once up, he can walk under supervision. He is trying to walk too fast. Then, he had a tendency to lose balance. He had some difficulty trying to walk on his tiptoes and on his heels and tried to walk on a straight line, one foot in front of the other. No obvious communication problems or cognitive deficits noted. ASSESSMENT: An elderly male with recent fall and fracture of C2 and also cervical sprain with radiological evidence of multilevel degenerative disk disease and degenerative joint disease of cervical vertebrae with some degree of central spinal and neural foraminal compromise. No clinical evidence of cervical radiculopathy, but he has some high level balance problems, probably from his cervical spinal stenosis. RECOMMENDATIONS: Agree with the plan for physical therapy and occupational therapy, to also ask speech pathology to evaluate his swallowing. Hopefully, home with outpatient followup when medically stable in the next [address] Moralez, I appreciate asking me to participate in the care of this interesting patient. I will be glad to follow him with you as needed for his rehabilitation. CARLI BROCK MD DR: TRU/chapo JOB#: [id number] / [id number]
[2019-01-23] MEDS: VITAMIN B COMPLEX TABLET. PO SCH (09:26)
[2019-01-23] MEDS: ASCORBIC ACID 500 MG TABLET PO SCH (09:26)
[2019-01-23] MEDS: guaiFENesin DM 200MG/20MG 10 ML SYRUP PO SCH ×4 (09:26→21:39)
[2019-01-23] MEDS: OMEGA-3 FATTY ACIDS/FISH OIL 1,000 MG CAPSULE. PO SCH (09:26)
[2019-01-23] MEDS: MULTIVITAMIN with MINERAL TABLET. PO SCH (09:27)
[2019-01-23] MEDS: GABAPENTIN 100 MG CAPSULE. PO SCH ×3 (09:27→21:38)
[2019-01-23] MEDS: CHLORTHALIDONE 25 MG TABLET. PO SCH (09:27)
[2019-01-23] MEDS: ISOSORBIDE MONONITRATE ER 30 MG TAB.ER.24H PO SCH (09:27)
[2019-01-23] MEDS: POTASSIUM CHLORIDE 10 MEQ TABLET.ER. PO SCH (09:28)
[2019-01-23] MEDS: ATENOLOL 50 MG TABLET. PO SCH (09:28)
--- NOTE | 2019-01-23 09:49 | PDOC ---
PROGRESS NOTES Subjective Subjective Some neck pain with flexion of his neck and loose stools this AM. Objective Objective Vital Signs Date Time Temp Pulse Resp B/P (MAP) Pulse Ox O2 Delivery O2 Flow Rate FiO2 01/23/19 09:28 72 138/78 01/23/19 07:00 97.7 16 93 Room Air 97.7 01/22/19 07:00 2.0 Intake and Output 01/23/19 06:59 Intake Total 580 ml Output Total 800 ml Balance -220 ml Intake Oral 580 ml Output Urine Total 800 ml # Voids 2 Physical Exam Physical Exam He is alert and sitting in bedside chair and eating breakfast and he is walking with roller walker safely this AM. He is emptying his bladder good. Assessment Assessment Problems Medical Problems: (1) C1 cervical fracture Status: Acute (2) Dens fracture Status: Acute Plan Plan of [facility] when medically stable with out patient follow up,hopefully tomorrow. Comment Review of Relevant I have reviewed the following items bernard (where applicable) has been applied. Labs Laboratory Tests Test 01/21/19 17:04 01/21/19 23:59 01/22/19 06:04 01/22/19 11:51 Glucose (Fingerstick) 121 mg/dL (70-99) 113 mg/dL (70-99) 116 mg/dL (70-99) 132 mg/dL (70-99) Test 01/22/19 16:31 01/22/19 23:45 01/23/19 05:36 01/23/19 07:48 Glucose (Fingerstick) 146 mg/dL (70-99) 130 mg/dL (70-99) 125 mg/dL (70-99) 136 mg/dL (70-99) Laboratory Tests Test 01/22/19 11:51 01/22/19 16:31 01/22/19 23:45 01/23/19 05:36 Glucose (Fingerstick) 132 mg/dL (70-99) 146 mg/dL (70-99) 130 mg/dL (70-99) 125 mg/dL (70-99) Test 01/23/19 07:48 Glucose (Fingerstick) 136 mg/dL (70-99) Medications Current Medications Diphtheria/ Tetanus/Acell Pertussis (Boostrix) 0.5 ml ONCE ONCE VAX IM Last administered on 01/20/19at 16:40; Start 3/9/19 at 16:00; Stop 01/20/19 at 16:01; Status DC Lidocaine HCl (Lidocaine 1% 20ml Vial) 20 ml 1X ONCE INJ Last administered on 01/20/19 16:38; Start 01/20/19 at 16:00; Stop 01/20/19 at 16:01; Status DC Ondansetron HCl (Zofran) 4 mg PRN Q8HRS PRN IV NAUSEA/VOMITING; Start 01/20/19 at 17:45; Stop 01/21/19 at 17:44; Status DC Morphine Sulfate (Morphine Sulfate) 4 mg PRN Q2HR PRN IV PAIN Last administered on 01/21/19 11:07; Start 01/20/19 at 17:45; Stop 01/21/19 at 17:44 ; Status DC Sodium Chloride 1,000 ml @ 125 mls/hr Q8H IV Last administered on 01/21/19 06 :57; Start 01/20/19 at 17:32; Stop 01/21/19 at 17:31; Status DC Acetaminophen (Tylenol) 650 mg PRN Q4HRS PRN PO FEVER; Start 01/20/19 at 17:45; Stop 01/21/19 at 17:44; Status DC Iohexol (Omnipaque 350 Mg/ml) 100 ml 1X ONCE IV Last administered on 01/20/19at 18:50; Start 01/20/19 at 18:15; Stop 01/20/19 at 18:16; Status DC Info (CONTRAST GIVEN -- Rx MONITORING) 1 each PRN DAILY PRN MC SEE COMMENTS; Start 01/20/19 at 18:30; Stop 01/22/19 at 18:29; Status DC Gabapentin (Neurontin) 100 mg TID PO Last administered on 01/23/19 09:27; Start 01/20/19 at 21:00 Acetaminophen/ Hydrocodone Bitart (Lortab ) 1 tab PRN Q6HRS PRN PO SEVERE PAIN Last administered on 01/22/19at 08:41; Start 01/20/19 at 20:15 Isosorbide Mononitrate (Imdur) 30 mg DAILY PO Last administered on 01/23/19at 09 :27; Start 01/21/19 at 09:00 Potassium Chloride (Klor-Con) 10 meq DAILY PO Last administered on 01/23/19 09 :28; Start 01/21/19 at 09:00 Tramadol HCl (Ultram) 50 mg PRN Q6HRS PRN PO MODERATE PAIN; Start 01/20/19 at 20 :15 Ascorbic Acid (Vitamin C) 1,000 mg DAILY PO Last administered on 01/23/19 09: 26; Start 01/21/19 at 09:00 Non-Formulary Medication (Atenolol/ Chlorthalidone (Atenolol-Chlorthal 50-25 Tb) ) 1 tab QODAY PO ; Start 01/22/19 at 09:00; Status UNV Pantoprazole Sodium (Protonix) 40 mg DAILYAC PO Last administered on 01/23/19 07:49; Start 01/21/19 at 07:30 Non-Formulary Medication (Ginkgo Biloba Extract (Ginkgo Biloba)) 120 mg DAILY PO ; Start 01/21/19 at 09:00; Status UNV Non-Formulary Medication (Glucosamine/ Chondroitin Sulf A (Glucosamine Chondroitin Cap)) 1 each DAILY PO ; Start 01/21/19 at 09:00; Status UNV Fish Oil (Fish Oil) 1,000 mg DAILY PO Last administered on 01/23/19 09:26; Start 01/21/19 at 09:00 Non-Formulary Medication (Lecithin, Soy (Lecithin)) 400 mg DAILY PO ; Start 09/01 at 09:00; Status UNV Multivitamins (Thera M Plus) 1 tab DAILY PO Last administered on 01/23/19 09: 27; Start 01/21/19 at 09:00 Vitamin B Complex (Rodríguez B) 1 tab DAILY PO Last administered on 01/23/19 09:26 ; Start 01/21/19 at 09:00 Labetalol HCl (Normodyne Iv Push) 10 mg PRN Q4HRS PRN IVP HYPERTENSION, SEE COMMENTS Last administered on 01/21/19 04:28; Start 01/20/19 at 20:30 Atenolol (Tenormin) 50 mg Q48H PO Last administered on 01/23/19 09:28; Start 01/21/19 at 09:00 Chlorthalidone (Thalitone) 25 mg Q48H PO Last administered on 01/23/19at 09:27; Start 01/21/19 at 09:00 Lorazepam (Ativan) 0.5 mg PRN Q6HRS PRN IV ANXIETY / AGITATION Last administered on 01/21/19at 20:22; Start 01/20/19 at 22:15 Fentanyl Citrate (Fentanyl 2ml Vial) 50 mcg PRN Q3HRS PRN IV MODERATE-SEVERE PAIN Last administered on 01/21/19at 06:56; Start 01/20/19 at 22:15 Potassium Chloride (Klor-Con) 40 meq 1X ONCE PO ; Start 01/21/19 at 09:30; Stop 01/21/19 at 09:31; Status DC Insulin Human Lispro (HumaLOG) 0-5 UNITS Q6HRS SQ ; Start 01/21/19 at 09:30 Dextrose (Dextrose 50%-Water Syringe) 12.5 gm PRN Q15MIN PRN IV SEE COMMENTS; Start 01/21/19 at 09:30 Methylprednisolone Acetate (DEPO-Medrol 80MG VIAL) 80 mg 1X ONCE IM ; Start 10/02 at 09:00; Stop 01/22/19 at 09:01; Status DC Lidocaine HCl 10 ml 1X ONCE INJ ; Start 01/21/19 at 15:30; Stop 01/21/19 at 15: 31; Status DC Lidocaine HCl (Lidocaine 1% 20ml Vial) 20 ml 1X ONCE INJ ; Start 01/22/19 at 09 :00; Stop 01/22/19 at 09:01; Status DC Acetaminophen (Tylenol) 500 mg PRN Q6HRS PRN PO MILD PAIN / TEMP Last administered on 01/22/19at 23:26; Start 01/22/19 at 09:30 Acetaminophen/ Codeine Phosphate (Tylenol #3) 1 tab PRN Q6HRS PRN PO MILD PAIN 2ND CHOICE; Start 01/22/19 at 09:30 Ondansetron HCl (Zofran) 4 mg PRN Q6HRS PRN IV NAUSEA/VOMITING; Start 01/22/19 at 09:30 Ondansetron HCl (Zofran Odt) 4 mg PRN Q6HRS PRN PO NAUSEA/VOMITING; Start 01/22 at 09:30 Morphine Sulfate (Morphine Sulfate) 2 mg PRN Q2HR PRN IV MILD PAIN; Start 01/22 at 09:30 Guaifenesin (Robitussin Dm) 10 ml QID PO Last administered on 01/23/19at 09:26; Start 01/22/19 at 11:30 Methylprednisolone Acetate (DEPO-Medrol 80MG VIAL) 80 mg STK-MED ONCE .ROUTE ; Start 01/22/19 at 09:00; Stop 01/22/19 at 15:56; Status DC Active Scripts Active Isosorbide Mononitrate Er (Isosorbide Mononitrate) 30 Mg Tab.er.24h 30 Mg PO DAILY Reported Ginkgo Biloba (Ginkgo Biloba Extract) 120 Mg Capsule 120 Mg PO DAILY Calcium + Vit D & K Chew Tab (Ca Carbonate/Vitamin D3/Vit K) 1 Each Tab.chew 1 Each PO DAILY Vitamin C (Ascorbic Acid) 1,000 Mg Tablet 1,000 Mg PO DAILY Vitamin E (Vitamin E (Dl,Tocopheryl Acet)) 400 Unit Capsule 400 Unit PO DAILY Vitamin B Complex 1 Each Capsule 1 Each PO DAILY Lecithin (Lecithin, Soy) 400 Mg Capsule 400 Mg PO DAILY Glucosamine Chondroitin Cap (Glucosamine/Chondroitin Sulf A) 1 Each Capsule 1 Each PO DAILY [place]-3 Krill Oil Softgel (Krill Oil/[place]-3/Dha/Epa) 1 Each Capsule 1 Each PO DAILY Ibuprofen 200 Mg Tablet 200 Mg PO PRN Q6HRS PRN Lansoprazole 15 Mg Capsule.dr 15 Mg PO DAILY Percocet 10-325 Mg Tablet (Oxycodone/Acetaminophen) 1 Each Tablet 1 Tab PO PRN Q6HRS PRN Furosemide 40 Mg Tablet 1 Tab PO DAILY PRN Potassium Chloride 10 Meq Capsule.er 1 Cap PO DAILY Carafate (Sucralfate) 1 Gm/10 Ml Oral.susp 1 Gm PO PRN Gabapentin (Gabapentin) 100 Mg Capsule 100 Mg PO TID Pradaxa (Dabigatran Etexilate Mesylate) 150 Mg Capsule 1 Cap PO BID Nexium Capsule (Esomeprazole Magnesium) 40 Mg Capsule.dr 1 Cap PO DAILY Tramadol Hcl 50 Mg Tablet 50-100 Mg PO Q4-6HRS PRN Hydrocodone-Apap 10-325 (Hydrocodone Bit/Acetaminophen) 1 Each Tablet 1 Tab PO PRN Q6HRS PRN Vitamin D3 (Cholecalciferol (Vitamin D3)) 400 Unit Tablet 400 Unit PO Multivitamins (Multivitamin) 1 Each Tablet 1 Each PO DAILY Atenolol-Chlorthal 50-25 Tb (Atenolol/Chlorthalidone) 1 Each Tablet 1 Tab PO QODAY Vitals/I & O Vital Sign - Last 24 Hours 01/22/19 01/22/19 01/22/19 01/22/19 10:15 11:00 15:00 19:00 Temp 98.6 98.1 98.4 98.6 98.1 98.4 Pulse 72 72 68 Resp 18 18 18 18 B/P (MAP) 140/65 (90) 113/72 (86) 128/71 (90) Pulse Ox 96 93 93 O2 Delivery Room Air Room Air Room Air Room Air 01/22/19 01/23/19 01/23/19 01/23/19 23:00 03:00 07:00 09:27 Temp 98.5 97.8 97.7 98.5 97.8 97.7 Pulse 67 67 72 72 Resp 18 18 16 B/P (MAP) 128/70 (89) 153/79 (103) 138/78 (98) 138/78 Pulse Ox 93 93 93 O2 Delivery Room Air Room Air Room Air 01/23/19 09:28 Pulse 72 B/P (MAP) 138/78 Intake and Output 01/22/19 01/22/19 01/23/19 14:59 22:59 06:59 Intake Total 240 ml 340 ml Output Total 200 ml 200 ml 400 ml Balance 40 ml 140 ml -400 ml CARLI BROCK MD Jan 23, 2019 09:49
[2019-01-23 11:00] VITALS: BP 137/68
--- NOTE | 2019-01-23 11:00 | PDOC ---
ORTHO PROGRESS NOTES Subjective Patient sitting up in bed with no new complaints. Procedure Steroid injection Left knee Vitals Vital Signs Date Time Temp Pulse Resp B/P (MAP) Pulse Ox O2 Delivery O2 Flow Rate FiO2 01/23/19 09:28 72 138/78 01/23/19 07:00 97.7 16 93 Room Air 97.7 01/22/19 07:00 2.0 Labs Laboratory Tests Test 01/21/19 17:04 01/21/19 23:59 01/22/19 06:04 01/22/19 11:51 Glucose (Fingerstick) 121 mg/dL (70-99) 113 mg/dL (70-99) 116 mg/dL (70-99) 132 mg/dL (70-99) Test 01/22/19 16:31 01/22/19 23:45 01/23/19 05:36 01/23/19 07:48 Glucose (Fingerstick) 146 mg/dL (70-99) 130 mg/dL (70-99) 125 mg/dL (70-99) 136 mg/dL (70-99) Laboratory Tests Test 01/22/19 11:51 01/22/19 16:31 01/22/19 23:45 01/23/19 05:36 Glucose (Fingerstick) 132 mg/dL (70-99) 146 mg/dL (70-99) 130 mg/dL (70-99) 125 mg/dL (70-99) Test 01/23/19 07:48 Glucose (Fingerstick) 136 mg/dL (70-99) Notes Patient states pain somewhat better Assessment and Plan DJD left knee Steroid injection yesterday with some relief Patient can followup in clinic as needed. No further ortho interventions needed at this time. MARIPOSA DEL CID APRN Jan 23, 2019 11:00
--- NOTE | 2019-01-23 11:26 | PDOC ---
PROGRESS NOTES Chief Complaint Chief Complaint A/P: Acute traumatic type II C2 dens fracture and nondisplaced right C1 lamina fracture - Scalp laceration - HTN - will continue CAD - with LAD chronic occlusion, appears to have [employer] since 2016, medically managed. 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 Can continue wound care inpatient Left knee pain - no fx Met enceph sec to pain meds, expected COugh History of Present Illness History of Present Illness MRI I have discussed with and provide copy Neurosurgery also discussed MRI findings with them Neurosurgery has ordered a better fitting collar and we are waiting for that Physiatry has seen the patient, possibly might just go home with home health tomorrow Awake but falls off to sleep because of pain medicine would prefer just to take him home with home health Plan: social service director for home health tmr on dc Awaiting a better fitting collar today WIll need collar x 12 weeks Keep current pain regimen, avoid further increase in dose, patient already getting too sleepy Vitals Vitals Vital Signs Date Time Temp Pulse Resp B/P (MAP) Pulse Ox O2 Delivery O2 Flow Rate FiO2 01/23/19 09:28 72 138/78 01/23/19 08:00 Room Air 01/23/19 07:00 97.7 16 93 97.7 01/22/19 07:00 2.0 Physical Exam General: Alert, Oriented X3, Cooperative, Other (hard collar on) Heart: Regular rate Lungs: Clear Abdomen: Soft, No tenderness Extremities: No clubbing, No cyanosis, No edema, Normal pulses Skin: No rashes, No breakdown, Other (brownish discoloration over right tibial region, old healed incision anteriorly at his proximal tibial region, small eschars present in this. No erythema, fluctuance, cellulitic change present.) Labs LABS Laboratory Tests Test 01/22/19 11:51 01/22/19 16:31 01/22/19 23:45 01/23/19 05:36 Glucose (Fingerstick) 132 mg/dL (70-99) 146 mg/dL (70-99) 130 mg/dL (70-99) 125 mg/dL (70-99) Test 01/23/19 07:48 Glucose (Fingerstick) 136 mg/dL (70-99) Review of Systems Review of Systems Neck pain, otherwise rest of ROS 14 point negative Assessment and Plan Assessmemt and Plan Problems Medical Problems: (1) C1 cervical fracture Status: Acute (2) Dens fracture Status: Acute Comment Review of Relevant I have reviewed the following items bernard (where applicable) has been applied. Labs Laboratory Tests Test 01/21/19 17:04 01/21/19 23:59 01/22/19 06:04 01/22/19 11:51 Glucose (Fingerstick) 121 mg/dL (70-99) 113 mg/dL (70-99) 116 mg/dL (70-99) 132 mg/dL (70-99) Test 01/22/19 16:31 01/22/19 23:45 01/23/19 05:36 01/23/19 07:48 Glucose (Fingerstick) 146 mg/dL (70-99) 130 mg/dL (70-99) 125 mg/dL (70-99) 136 mg/dL (70-99) Laboratory Tests Test 01/22/19 11:51 01/22/19 16:31 01/22/19 23:45 01/23/19 05:36 Glucose (Fingerstick) 132 mg/dL (70-99) 146 mg/dL (70-99) 130 mg/dL (70-99) 125 mg/dL (70-99) Test 01/23/19 07:48 Glucose (Fingerstick) 136 mg/dL (70-99) Medications Current Medications Diphtheria/ Tetanus/Acell Pertussis (Boostrix) 0.5 ml ONCE ONCE VAX IM Last administered on 01/20/19at 16:40; Start 01/20/19 at 16:00; Stop 01/20/19 at 16:01; Status DC Lidocaine HCl (Lidocaine 1% 20ml Vial) 20 ml 1X ONCE INJ Last administered on 01/20/19at 16:38; Start 01/20/19 at 16:00; Stop 01/20/19 at 16:01; Status DC Ondansetron HCl (Zofran) 4 mg PRN Q8HRS PRN IV NAUSEA/VOMITING; Start 01/20/19 at 17:45; Stop 01/21/19 at 17:44; Status DC Morphine Sulfate (Morphine Sulfate) 4 mg PRN Q2HR PRN IV PAIN Last administered on 01/21/19at 11:07; Start 01/20/19 at 17:45; Stop 01/21/19 at 17:44 ; Status DC Sodium Chloride 1,000 ml @ 125 mls/hr Q8H IV Last administered on 01/21/19at 06 :57; Start 01/20/19 at 17:32; Stop 01/21/19 at 17:31; Status DC Acetaminophen (Tylenol) 650 mg PRN Q4HRS PRN PO FEVER; Start 01/20/19 at 17:45; Stop 01/21/19 at 17:44; Status DC Iohexol (Omnipaque 350 Mg/ml) 100 ml 1X ONCE IV Last administered on 01/20/19at 18:50; Start 01/20/19 at 18:15; Stop 01/20/19 at 18:16; Status DC Info (CONTRAST GIVEN -- Rx MONITORING) 1 each PRN DAILY PRN MC SEE COMMENTS; Start 01/20/19 at 18:30; Stop 01/22/19 at 18:29; Status DC Gabapentin (Neurontin) 100 mg TID PO Last administered on 01/23/19 09:27; Start 01/20/19 at 21:00 Acetaminophen/ Hydrocodone Bitart (Lortab 10) 1 tab PRN Q6HRS PRN PO SEVERE PAIN Last administered on 01/22/19at 08:41; Start 01/20/19 at 20:15 Isosorbide Mononitrate (Imdur) 30 mg DAILY PO Last administered on 01/23/19 09 :27; Start 01/21/19 at 09:00 Potassium Chloride (Klor-Con) 10 meq DAILY PO Last administered on 01/23/19 09 :28; Start 01/21/19 at 09:00 Tramadol HCl (Ultram) 50 mg PRN Q6HRS PRN PO MODERATE PAIN; Start 01/20/19 at 20 :15 Ascorbic Acid (Vitamin C) 1,000 mg DAILY PO Last administered on 01/23/19 09: 26; Start 01/21/19 at 09:00 Non-Formulary Medication (Atenolol/ Chlorthalidone (Atenolol-Chlorthal 50-25 Tb) ) 1 tab QODAY PO ; Start 01/22/19 at 09:00; Status UNV Pantoprazole Sodium (Protonix) 40 mg DAILYAC PO Last administered on 01/23/19 07:49; Start 01/21/19 at 07:30 Non-Formulary Medication (Ginkgo Biloba Extract (Ginkgo Biloba)) 120 mg DAILY PO ; Start 01/21/19 at 09:00; Status UNV Non-Formulary Medication (Glucosamine/ Chondroitin Sulf A (Glucosamine Chondroitin Cap)) 1 each DAILY PO ; Start 01/21/19 at 09:00; Status UNV Fish Oil (Fish Oil) 1,000 mg DAILY PO Last administered on 01/23/19 09:26; Start 01/21/19 at 09:00 Non-Formulary Medication (Lecithin, Soy (Lecithin)) 400 mg DAILY PO ; Start 09/01 at 09:00; Status UNV Multivitamins (Thera M Plus) 1 tab DAILY PO Last administered on 01/23/19 09: 27; Start 01/21/19 at 09:00 Vitamin B Complex (Rodríguez B) 1 tab DAILY PO Last administered on 01/23/19 09:26 ; Start 01/21/19 at 09:00 Labetalol HCl (Normodyne Iv Push) 10 mg PRN Q4HRS PRN IVP HYPERTENSION, SEE COMMENTS Last administered on 01/21/19 04:28; Start 01/20/19 at 20:30 Atenolol (Tenormin) 50 mg Q48H PO Last administered on 01/23/19 09:28; Start 01/21/19 at 09:00 Chlorthalidone (Thalitone) 25 mg Q48H PO Last administered on 01/23/19 09:27; Start 01/21/19 at 09:00 Lorazepam (Ativan) 0.5 mg PRN Q6HRS PRN IV ANXIETY / AGITATION Last administered on 01/21/19 20:22; Start 01/20/19 at 22:15 Fentanyl Citrate (Fentanyl 2ml Vial) 50 mcg PRN Q3HRS PRN IV MODERATE-SEVERE PAIN Last administered on 01/21/19 06:56; Start 01/20/19 at 22:15 Potassium Chloride (Klor-Con) 40 meq 1X ONCE PO ; Start 01/21/19 at 09:30; Stop 01/21/19 at 09:31; Status DC Insulin Human Lispro (HumaLOG) 0-5 UNITS Q6HRS SQ ; Start 01/21/19 at 09:30 Dextrose (Dextrose 50%-Water Syringe) 12.5 gm PRN Q15MIN PRN IV SEE COMMENTS; Start 01/21/19 at 09:30 Methylprednisolone Acetate (DEPO-Medrol 80MG VIAL) 80 mg 1X ONCE IM ; Start 10/02 at 09:00; Stop 01/22/19 at 09:01; Status DC Lidocaine HCl 10 ml 1X ONCE INJ ; Start 01/21/19 at 15:30; Stop 01/21/19 at 15: 31; Status DC Lidocaine HCl (Lidocaine 1% 20ml Vial) 20 ml 1X ONCE INJ ; Start 01/22/19 at 09 :00; Stop 01/22/19 at 09:01; Status DC Acetaminophen (Tylenol) 500 mg PRN Q6HRS PRN PO MILD PAIN / TEMP Last administered on 01/22/19at 23:26; Start 01/22/19 at 09:30 Acetaminophen/ Codeine Phosphate (Tylenol #3) 1 tab PRN Q6HRS PRN PO MILD PAIN 2ND CHOICE; Start 01/22/19 at 09:30 Ondansetron HCl (Zofran) 4 mg PRN Q6HRS PRN IV NAUSEA/VOMITING; Start 01/22/19 at 09:30 Ondansetron HCl (Zofran Odt) 4 mg PRN Q6HRS PRN PO NAUSEA/VOMITING; Start 01/22 at 09:30 Morphine Sulfate (Morphine Sulfate) 2 mg PRN Q2HR PRN IV MILD PAIN; Start 01/22 at 09:30 Guaifenesin (Robitussin Dm) 10 ml QID PO Last administered on 01/23/19at 09:26; Start 01/22/19 at 11:30 Methylprednisolone Acetate (DEPO-Medrol 80MG VIAL) 80 mg STK-MED ONCE .ROUTE ; Start 01/22/19 at 09:00; Stop 01/22/19 at 15:56; Status DC Active Scripts Active Isosorbide Mononitrate Er (Isosorbide Mononitrate) 30 Mg Tab.er.24h 30 Mg PO DAILY Reported Ginkgo Biloba (Ginkgo Biloba Extract) 120 Mg Capsule 120 Mg PO DAILY Calcium + Vit D & K Chew Tab (Ca Carbonate/Vitamin D3/Vit K) 1 Each Tab.chew 1 Each PO DAILY Vitamin C (Ascorbic Acid) 1,000 Mg Tablet 1,000 Mg PO DAILY Vitamin E (Vitamin E (Dl,Tocopheryl Acet)) 400 Unit Capsule 400 Unit PO DAILY Vitamin B Complex 1 Each Capsule 1 Each PO DAILY Lecithin (Lecithin, Soy) 400 Mg Capsule 400 Mg PO DAILY Glucosamine Chondroitin Cap (Glucosamine/Chondroitin Sulf A) 1 Each Capsule 1 Each PO DAILY [place]-3 Krill Oil Softgel (Krill Oil/[place]-3/Dha/Epa) 1 Each Capsule 1 Each PO DAILY Ibuprofen 200 Mg Tablet 200 Mg PO PRN Q6HRS PRN Lansoprazole 15 Mg Capsule.dr 15 Mg PO DAILY Percocet 10-325 Mg Tablet (Oxycodone/Acetaminophen) 1 Each Tablet 1 Tab PO PRN Q6HRS PRN Furosemide 40 Mg Tablet 1 Tab PO DAILY PRN Potassium Chloride 10 Meq Capsule.er 1 Cap PO DAILY Carafate (Sucralfate) 1 Gm/10 Ml Oral.susp 1 Gm PO PRN Gabapentin (Gabapentin) 100 Mg Capsule 100 Mg PO TID Pradaxa (Dabigatran Etexilate Mesylate) 150 Mg Capsule 1 Cap PO BID Nexium Capsule (Esomeprazole Magnesium) 40 Mg Capsule.dr 1 Cap PO DAILY Tramadol Hcl 50 Mg Tablet 50-100 Mg PO Q4-6HRS PRN Hydrocodone-Apap 10-325 (Hydrocodone Bit/Acetaminophen) 1 Each Tablet 1 Tab PO PRN Q6HRS PRN Vitamin D3 (Cholecalciferol (Vitamin D3)) 400 Unit Tablet 400 Unit PO Multivitamins (Multivitamin) 1 Each Tablet 1 Each PO DAILY Atenolol-Chlorthal 50-25 Tb (Atenolol/Chlorthalidone) 1 Each Tablet 1 Tab PO QODAY Vitals/I & O Vital Sign - Last 24 Hours 01/22/19 01/22/19 01/22/19 01/23/19 15:00 19:00 23:00 03:00 Temp 98.1 98.4 98.5 97.8 98.1 98.4 98.5 97.8 Pulse 72 68 67 67 Resp 18 18 18 18 B/P (MAP) 113/72 (86) 128/71 (90) 128/70 (89) 153/79 (103) Pulse Ox 93 93 93 93 O2 Delivery Room Air Room Air Room Air Room Air 01/23/19 01/23/19 01/23/19 01/23/19 07:00 08:00 09:27 09:28 Temp 97.7 97.7 Pulse 72 72 72 Resp 16 B/P (MAP) 138/78 (98) 138/78 138/78 Pulse Ox 93 O2 Delivery Room Air Room Air Intake and Output 01/22/19 01/22/19 01/23/19 14:59 22:59 06:59 Intake Total 240 ml 340 ml Output Total 200 ml 200 ml 400 ml Balance 40 ml 140 ml -400 ml NORMA SANDOVAL MD Jan 23, 2019 11:26
--- NOTE | 2019-01-23 11:40 | NUR ---
Bedside Swallow Evaluation completed. Referral to ST w/ report of chronic dysphagia and pt report of difficulty swallowing solids. Pt and deny chronic dysphagia at evaluation and repeat on multiple occasions swallowing difficulty is new w/ this hospital admission. Impressions: Functional swallow w/o s/s aspiration during evaluation. Min-mild oropharyngeal dysphagia r/t head/neck positioning w/ C Collar on. Pt states he feels as though he has residue or "a little food left in throat" when swallowing solids. Diet modifications and liquid wash appear beneficial. Extensive discussion and education w/ pt and family re: increase swallow safety, swallow strategies, diet recommendations. Recommendations: Continue GI soft/add ground meat w/ gravy. Thin liquids/straws ok, ST dysphagia f/u.
[2019-01-23] MEDS: HYDROcodone/APAP 10/325 1 TAB TABLET PO PRN ×2 (13:32→21:38)
[2019-01-23 15:00] VITALS: BP 137/74
[2019-01-23] MEDS: ACETAMINOPHEN 500 MG TABLET PO PRN (16:23)
--- NOTE | 2019-01-23 16:28 | NUR ---
SW following. Discussed with RN. PT/OT recommending acute rehab. SW met with pt and pt's Jose, they are planning on discharging home tomorrow. Pt's has no concerns about taking pt home. Dr. Amanda advised family they would be able to go home. SW will continue to follow. Possibility of Home Health. RN notified.
[2019-01-23 19:25] VITALS: BP 136/70
[2019-01-23 23:53] VITALS: BP 126/83
[2019-01-24 03:43] VITALS: BP 146/79
[2019-01-24] MEDS: INSULIN LISPRO 300 UNITS/3 ML INSULN.PEN. SQ SCH ×3 (06:00→12:00)
[2019-01-24 07:00] VITALS: BP 136/86
[2019-01-24] MEDS: PANTOPRAZOLE 40 MG TABLET.DR. PO SCH (07:16)
[2019-01-24] MEDS: MULTIVITAMIN with MINERAL TABLET. PO SCH (08:38)
[2019-01-24] MEDS: guaiFENesin DM 200MG/20MG 10 ML SYRUP PO SCH ×2 (08:38→13:36)
[2019-01-24] MEDS: ISOSORBIDE MONONITRATE ER 30 MG TAB.ER.24H PO SCH (08:38)
[2019-01-24] MEDS: ASCORBIC ACID 500 MG TABLET PO SCH (08:39)
[2019-01-24] MEDS: POTASSIUM CHLORIDE 10 MEQ TABLET.ER. PO SCH (08:39)
[2019-01-24] MEDS: GABAPENTIN 100 MG CAPSULE. PO SCH ×2 (08:39→14:00)
[2019-01-24] MEDS: VITAMIN B COMPLEX TABLET. PO SCH (08:39)
[2019-01-24] MEDS: OMEGA-3 FATTY ACIDS/FISH OIL 1,000 MG CAPSULE. PO SCH (08:39)
[2019-01-24] MEDS ORDERED: HYDR-2769 PO (09:51)
--- NOTE | 2019-01-24 09:51 | SNU/HH DC ---
DISCHARGE WITH HOME HEALTH DISCHARGE INFORMATION: Discharge Date: Jan 24, 2019 Final Diagnosis: Problems Medical Problems: (1) C1 cervical fracture Status: Acute (2) Dens fracture Status: Acute Condition on Discharge: Stable CODE STATUS: Code Status: Full HOME HEALTH: Face to Face: I certify this patient is under my care and that I, or a nurse practitioner or physician's production administrative assistant working with me, had a face to face encounter that meets the physician face to face encounter requirements with this patient on []. 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 BLAND AFTER DISCHARGE: Cardiac Wound/Incision Care: No wound care needed CHECKS AFTER DISCHARGE: Checks after discharge: Check blood press - daily FOLLOW-UP: Follow up with: dr stewart as instructed TREATMENT/EQUIPMENT ORDERS: Adaptive Equipment Issued: Front wheeled walker CERTIFICATION STATEMENT: Certification Statement: Certification Statement: Based on the above finding, I certify that this patient is confined to the home and needs intermittent custodial care, physical therapy and/or speech therapy, or continues to need occupational therapy.~ This patient is under my care, and I have initiated the establishment of the plan of care.~ This patient will be followed by myself or a community physician who will periodically review the plan of care. Home Meds Active Scripts Hydrocodone Bit/Acetaminophen (HYDROCODONE-APAP 10-325 ) 1 Each Tablet, 1 TAB PO PRN Q6HRS PRN for PAIN MDD 1, #30 TAB 0 Refills Prov:NORMA SANDOVAL MD 01/24/19 Isosorbide Mononitrate (ISOSORBIDE MONONITRATE ER) 30 Mg Tab.er.24h, 30 MG PO DAILY, #30 TAB 5 Refills Prov:CED CARDENAS MD 01/20/16 Reported Medications Ginkgo Biloba Extract (GINKGO BILOBA) 120 Mg Capsule, 120 MG PO DAILY 01/13/16 Ca Carbonate/Vitamin D3/Vit K (CALCIUM + VIT D & K CHEW TAB) 1 Each Tab.chew, 1 EACH PO DAILY, TAB.CHEW 01/13/16 Ascorbic Acid (VITAMIN C) 1,000 Mg Tablet, 1000 MG PO DAILY 01/13/16 Vitamin E (Dl,Tocopheryl Acet) (VITAMIN E) 400 Unit Capsule, 400 UNIT PO DAILY 01/13/16 Vitamin B Complex (VITAMIN B COMPLEX) 1 Each Capsule, 1 EACH PO DAILY 01/13/16 Lecithin, Soy (LECITHIN) 400 Mg Capsule, 400 MG PO DAILY 01/13/16 Glucosamine/Chondroitin Sulf A (GLUCOSAMINE CHONDROITIN CAP) 1 Each Capsule, 1 EACH PO DAILY 01/13/16 Krill Oil/[place]-3/Dha/Epa ([place]-3 KRILL OIL SOFTGEL) 1 Each Capsule, 1 EACH PO DAILY 01/13/16 Ibuprofen (IBUPROFEN) 200 Mg Tablet, 200 MG PO PRN Q6HRS PRN for INFLAMMATION, TAB 01/13/16 Lansoprazole (LANSOPRAZOLE) 15 Mg Capsule.dr, 15 MG PO DAILY, CAP 01/13/16 Oxycodone/Apap 10-325 (PERCOCET 10-325 MG TABLET ) 1 Each Tablet, 1 TAB PO PRN Q6HRS PRN for PAIN, TAB 0 Refills 01/13/16 Furosemide (FUROSEMIDE) 40 Mg Tablet, 1 TAB PO DAILY PRN for SEE COMMENTS, #30 TAB 5 Refills 01/13/16 Potassium Chloride (POTASSIUM CHLORIDE) 10 Meq Capsule.er, 1 CAP PO DAILY, #90 CAP 1 Refill 01/13/16 Sucralfate (CARAFATE) 1 Gm/10 Ml Oral.susp, 1 GM PO PRN for HEARTBURN / GAS 01/13/16 Gabapentin (GABAPENTIN ) 100 Mg Capsule, 100 MG PO TID, CAP 01/13/16 Dabigatran Etexilate Mesylate (PRADAXA) 150 Mg Capsule, 1 CAP PO BID, #180 CAP 1 Refill 01/13/16 Esomeprazole Magnesium (NEXIUM CAPSULE) 40 Mg Capsule.dr, 1 CAP PO DAILY, #30 CAP 5 Refills 11/03/15 Tramadol Hcl (TRAMADOL HCL) 50 Mg Tablet, 50-100 MG PO Q4-6HRS PRN for PAIN, TAB 11/03/15 Cholecalciferol (Vitamin D3) (VITAMIN D3) 400 Unit Tablet, 400 UNIT PO 06/02/15 Multivitamin (MULTIVITAMINS) 1 Each Tablet, 1 EACH PO DAILY 06/02/15 Atenolol/Chlorthalidone (ATENOLOL-CHLORTHAL 50-25 TB) 1 Each Tablet, 1 TAB PO QODAY 05/01/15 NORMA SANDOVAL MD Jan 24, 2019 09:51
--- NOTE | 2019-01-24 10:48 | PDOC ---
PROGRESS NOTES Subjective Subjective He is having loose stools this AM. Objective Objective Vital Signs Date Time Temp Pulse Resp B/P (MAP) Pulse Ox O2 Delivery O2 Flow Rate FiO2 01/24/19 08:38 65 136/86 01/24/19 07:00 97.7 18 94 Room Air 97.7 01/22/19 07:00 2.0 Intake and Output 01/24/19 06:59 Intake Total 360 ml Balance 360 ml Intake Oral 360 ml # Voids 7 # Bowel Movements 9 Physical Exam Physical Exam He is alert,sitting in bed with head end of bed propped up with cervical collar in place and he continues to get up and walk with roller walker. He is continent of bladder and emptying his bladder good. Assessment Assessment Problems Medical Problems: (1) C1 cervical fracture Status: Acute (2) Dens fracture Status: Acute Plan Plan of [facility] when medically stable. Comment Review of Relevant I have reviewed the following items bernard (where applicable) has been applied. Labs Laboratory Tests Test 01/22/19 11:51 01/22/19 16:31 01/22/19 23:45 01/23/19 05:36 Glucose (Fingerstick) 132 mg/dL (70-99) 146 mg/dL (70-99) 130 mg/dL (70-99) 125 mg/dL (70-99) Test 01/23/19 07:48 01/23/19 14:06 01/24/19 06:10 Glucose (Fingerstick) 136 mg/dL (70-99) 112 mg/dL (70-99) 100 mg/dL (70-99) Laboratory Tests Test 01/23/19 14:06 01/24/19 06:10 Glucose (Fingerstick) 112 mg/dL (70-99) 100 mg/dL (70-99) Medications Current Medications Diphtheria/ Tetanus/Acell Pertussis (Boostrix) 0.5 ml ONCE ONCE VAX IM Last administered on 01/20/19at 16:40; Start 01/20/19 at 16:00; Stop 01/20/19 at 16:01; Status DC Lidocaine HCl (Lidocaine 1% 20ml Vial) 20 ml 1X ONCE INJ Last administered on 01/20/19at 16:38; Start 01/20/19 at 16:00; Stop 01/20/19 at 16:01; Status DC Ondansetron HCl (Zofran) 4 mg PRN Q8HRS PRN IV NAUSEA/VOMITING; Start 01/20/19 at 17:45; Stop 01/21/19 at 17:44; Status DC Morphine Sulfate (Morphine Sulfate) 4 mg PRN Q2HR PRN IV PAIN Last administered on 01/21/19 11:07; Start 01/20/19 at 17:45; Stop 01/21/19 at 17:44 ; Status DC Sodium Chloride 1,000 ml @ 125 mls/hr Q8H IV Last administered on 01/21/19at 06 :57; Start 01/20/19 at 17:32; Stop 01/21/19 at 17:31; Status DC Acetaminophen (Tylenol) 650 mg PRN Q4HRS PRN PO FEVER; Start 01/20/19 at 17:45; Stop 01/21/19 at 17:44; Status DC Iohexol (Omnipaque 350 Mg/ml) 100 ml 1X ONCE IV Last administered on 01/20/19at 18:50; Start 01/20/19 at 18:15; Stop 01/20/19 at 18:16; Status DC Info (CONTRAST GIVEN -- Rx MONITORING) 1 each PRN DAILY PRN MC SEE COMMENTS; Start 01/20/19 at 18:30; Stop 01/22/19 at 18:29; Status DC Gabapentin (Neurontin) 100 mg TID PO Last administered on 01/24/19 08:39; Start 01/20/19 at 21:00 Acetaminophen/ Hydrocodone Bitart (Lortab 10/325) 1 tab PRN Q6HRS PRN PO SEVERE PAIN Last administered on 01/23/19at 21:38; Start 01/20/19 at 20:15 Isosorbide Mononitrate (Imdur) 30 mg DAILY PO Last administered on 01/24/19 08 :38; Start 01/21/19 at 09:00 Potassium Chloride (Klor-Con) 10 meq DAILY PO Last administered on 01/24/19 08 :39; Start 01/21/19 at 09:00 Tramadol HCl (Ultram) 50 mg PRN Q6HRS PRN PO MODERATE PAIN; Start 01/20/19 at 20 :15 Ascorbic Acid (Vitamin C) 1,000 mg DAILY PO Last administered on 01/24/19 08: 39; Start 01/21/19 at 09:00 Non-Formulary Medication (Atenolol/ Chlorthalidone (Atenolol-Chlorthal 50-25 Tb) ) 1 tab QODAY PO ; Start 01/22/19 at 09:00; Status UNV Pantoprazole Sodium (Protonix) 40 mg DAILYAC PO Last administered on 01/24/19 07:16; Start 01/21/19 at 07:30 Non-Formulary Medication (Ginkgo Biloba Extract (Ginkgo Biloba)) 120 mg DAILY PO ; Start 01/21/19 at 09:00; Status UNV Non-Formulary Medication (Glucosamine/ Chondroitin Sulf A (Glucosamine Chondroitin Cap)) 1 each DAILY PO ; Start 01/21/19 at 09:00; Status UNV Fish Oil (Fish Oil) 1,000 mg DAILY PO Last administered on 01/24/19 08:39; Start 01/21/19 at 09:00 Non-Formulary Medication (Lecithin, Soy (Lecithin)) 400 mg DAILY PO ; Start 09/01 at 09:00; Status UNV Multivitamins (Thera M Plus) 1 tab DAILY PO Last administered on 01/24/19 08: 38; Start 01/21/19 at 09:00 Vitamin B Complex (Rodríguez B) 1 tab DAILY PO Last administered on 01/24/19 08:39 ; Start 01/21/19 at 09:00 Labetalol HCl (Normodyne Iv Push) 10 mg PRN Q4HRS PRN IVP HYPERTENSION, SEE COMMENTS Last administered on 01/21/19 04:28; Start 01/20/19 at 20:30 Atenolol (Tenormin) 50 mg Q48H PO Last administered on 01/23/19 09:28; Start 01/21/19 at 09:00 Chlorthalidone (Thalitone) 25 mg Q48H PO Last administered on 01/23/19 09:27; Start 01/21/19 at 09:00 Lorazepam (Ativan) 0.5 mg PRN Q6HRS PRN IV ANXIETY / AGITATION Last administered on 01/21/19 20:22; Start 01/20/19 at 22:15 Fentanyl Citrate (Fentanyl 2ml Vial) 50 mcg PRN Q3HRS PRN IV MODERATE-SEVERE PAIN Last administered on 01/21/19at 06:56; Start 01/20/19 at 22:15 Potassium Chloride (Klor-Con) 40 meq 1X ONCE PO ; Start 01/21/19 at 09:30; Stop 01/21/19 at 09:31; Status DC Insulin Human Lispro (HumaLOG) 0-5 UNITS Q6HRS SQ ; Start 01/21/19 at 09:30 Dextrose (Dextrose 50%-Water Syringe) 12.5 gm PRN Q15MIN PRN IV SEE COMMENTS; Start 01/21/19 at 09:30 Methylprednisolone Acetate (DEPO-Medrol 80MG VIAL) 80 mg 1X ONCE IM ; Start 10/02 at 09:00; Stop 01/22/19 at 09:01; Status DC Lidocaine HCl 10 ml 1X ONCE INJ ; Start 01/21/19 at 15:30; Stop 01/21/19 at 15: 31; Status DC Lidocaine HCl (Lidocaine 1% 20ml Vial) 20 ml 1X ONCE INJ ; Start 01/22/19 at 09 :00; Stop 01/22/19 at 09:01; Status DC Acetaminophen (Tylenol) 500 mg PRN Q6HRS PRN PO MILD PAIN / TEMP Last administered on 01/23/19at 16:23; Start 01/22/19 at 09:30 Acetaminophen/ Codeine Phosphate (Tylenol #3) 1 tab PRN Q6HRS PRN PO MILD PAIN 2ND CHOICE; Start 01/22/19 at 09:30 Ondansetron HCl (Zofran) 4 mg PRN Q6HRS PRN IV NAUSEA/VOMITING; Start 01/22/19 at 09:30 Ondansetron HCl (Zofran Odt) 4 mg PRN Q6HRS PRN PO NAUSEA/VOMITING; Start 01/22 at 09:30 Morphine Sulfate (Morphine Sulfate) 2 mg PRN Q2HR PRN IV MILD PAIN; Start 01/22 at 09:30 Guaifenesin (Robitussin Dm) 10 ml QID PO Last administered on 01/24/19at 08:38; Start 01/22/19 at 11:30 Methylprednisolone Acetate (DEPO-Medrol 80MG VIAL) 80 mg STK-MED ONCE .ROUTE ; Start 01/22/19 at 09:00; Stop 01/22/19 at 15:56; Status DC Active Scripts Active Hydrocodone-Apap 10-325 (Hydrocodone Bit/Acetaminophen) 1 Each Tablet 1 Tab PO PRN Q6HRS PRN MDD 1 Isosorbide Mononitrate Er (Isosorbide Mononitrate) 30 Mg Tab.er.24h 30 Mg PO DAILY Reported Ginkgo Biloba (Ginkgo Biloba Extract) 120 Mg Capsule 120 Mg PO DAILY Calcium + Vit D & K Chew Tab (Ca Carbonate/Vitamin D3/Vit K) 1 Each Tab.chew 1 Each PO DAILY Vitamin C (Ascorbic Acid) 1,000 Mg Tablet 1,000 Mg PO DAILY Vitamin E (Vitamin E (Dl,Tocopheryl Acet)) 400 Unit Capsule 400 Unit PO DAILY Vitamin B Complex 1 Each Capsule 1 Each PO DAILY Lecithin (Lecithin, Soy) 400 Mg Capsule 400 Mg PO DAILY Glucosamine Chondroitin Cap (Glucosamine/Chondroitin Sulf A) 1 Each Capsule 1 Each PO DAILY [place]-3 Krill Oil Softgel (Krill Oil/[place]-3/Dha/Epa) 1 Each Capsule 1 Each PO DAILY Ibuprofen 200 Mg Tablet 200 Mg PO PRN Q6HRS PRN Lansoprazole 15 Mg Capsule.dr 15 Mg PO DAILY Percocet 10-325 Mg Tablet (Oxycodone/Acetaminophen) 1 Each Tablet 1 Tab PO PRN Q6HRS PRN Furosemide 40 Mg Tablet 1 Tab PO DAILY PRN Potassium Chloride 10 Meq Capsule.er 1 Cap PO DAILY Carafate (Sucralfate) 1 Gm/10 Ml Oral.susp 1 Gm PO PRN Gabapentin (Gabapentin) 100 Mg Capsule 100 Mg PO TID Pradaxa (Dabigatran Etexilate Mesylate) 150 Mg Capsule 1 Cap PO BID Nexium Capsule (Esomeprazole Magnesium) 40 Mg Capsule.dr 1 Cap PO DAILY Tramadol Hcl 50 Mg Tablet 50-100 Mg PO Q4-6HRS PRN Vitamin D3 (Cholecalciferol (Vitamin D3)) 400 Unit Tablet 400 Unit PO Multivitamins (Multivitamin) 1 Each Tablet 1 Each PO DAILY Atenolol-Chlorthal 50-25 Tb (Atenolol/Chlorthalidone) 1 Each Tablet 1 Tab PO QODAY Vitals/I & O Vital Sign - Last 24 Hours 01/23/19 01/23/19 01/23/19 01/23/19 11:00 13:32 15:00 15:15 Temp 98.1 97.7 98.1 97.7 Pulse 63 64 Resp 16 16 16 16 B/P (MAP) 137/68 (91) 137/74 (95) Pulse Ox 92 95 O2 Delivery Room Air Room Air Room Air 01/23/19 01/23/19 01/23/19 01/23/19 19:25 20:00 21:38 22:38 Temp 98.7 98.7 Pulse 61 Resp 18 B/P (MAP) 136/70 (92) Pulse Ox 93 93 93 O2 Delivery Room Air Room Air Room Air Room Air 01/23/19 01/24/19 01/24/19 01/24/19 23:53 03:43 07:00 08:38 Temp 98.3 99.0 97.7 98.3 99.0 97.7 Pulse 60 61 65 65 Resp 18 18 18 B/P (MAP) 126/83 (97) 146/79 (101) 136/86 (103) 136/86 Pulse Ox 92 95 94 O2 Delivery Room Air Room Air Room Air Intake and Output 01/23/19 01/23/19 01/24/19 14:59 22:59 06:59 Intake Total 360 ml Balance 360 ml CARLI BROKC MD Jan 24, 2019 10:48
--- NOTE | 2019-01-24 10:51 | NUR ---
SW following for discharge planning. Discussed with RN, pt being tested for C-Diff today. Pt will possibly discharge home with home health today. Pt and would like [facility], as they believe they have had [facility] in the past. CHRISTIAN advised Tram from [facility], who will meet with pt and pt's . SW will continue to follow.
[2019-01-24 11:00] VITALS: BP 140/70
--- NOTE | 2019-01-24 11:54 | PDOC3 ---
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 Can continue wound care inpatient Left knee pain - no fx Met enceph sec to pain meds, expected COugh Final Diagnosis Problems Medical Problems: (1) C1 cervical fracture Status: Acute (2) Dens fracture Status: Acute Brief Hospital Course Allergies Allergies Coded Allergies Type Severity Reaction Last Updated Verified No Known Medication Allergies Allergy Unknown 11/09/16 Yes Vital Signs Vital Signs Date Time Temp Pulse Resp B/P (MAP) Pulse Ox O2 Delivery O2 Flow Rate FiO2 01/24/19 08:38 65 136/86 01/24/19 07:00 97.7 18 94 Room Air 97.7 Lab Results Laboratory Tests Test 01/22/19 16:31 01/22/19 23:45 01/23/19 05:36 01/23/19 07:48 Glucose (Fingerstick) 146 mg/dL (70-99) 130 mg/dL (70-99) 125 mg/dL (70-99) 136 mg/dL (70-99) Test 01/23/19 14:06 01/24/19 06:10 Glucose (Fingerstick) 112 mg/dL (70-99) 100 mg/dL (70-99) Laboratory Tests Test 01/23/19 14:06 01/24/19 06:10 Glucose (Fingerstick) 112 mg/dL (70-99) 100 mg/dL (70-99) Brief Hospital Course Mr. Fox is a 78 old very pleasant white male who had a mechanical fall at home. He lives at home with and otherwise has very good ADLs and IADLs prior to admission. Unfortunately sustained a C1-C2 fracture comanage with neurosurgery and needs a cervical collar for 12 weeks. He will follow-up with neurosurgery in 1 week. Needed some pain medicine which I have Rx on chart Also consulted physiatry. wishes home health, PT on day 1 recommend home health, on day 2 recommended SNU Discussed with home health RN. Mila of the head to be taken out after 7-10 days care of our ER or by them They will follow-up with neurosurgery 1 week and he can bring him to the office Also I advised to hold the blood thinner Pradaxa for 1 week and can safely resume if no other issues at home Collar x 12 weeks Discussed with RN, RN home health nurse, and patient himself dc time 32 mins in 50% educn Discharge Information Condition at Discharge: Improved, Stable Follow Up: Weeks (neuro surgery in 1 week) Disposition/Orders: D/C to Home w/ HH Scheduled Ascorbic Acid (Vitamin C) 1,000 Mg Tablet, 1,000 MG PO DAILY, (Reported) Entered as Reported by: JAZMÍN CANTU on 01/13/161208 Last Action: Converted on 01/20/192017 by EMERALD CRUM MD Atenolol/Chlorthalidone (Atenolol-Chlorthal 50-25 Tb) 1 Each Tablet, 1 TAB PO QODAY, (Reported) Entered as Reported by: Tana Phillips on 05/01/15 1046 Last Action: Converted on 01/20/192017 by EMERALD CRUM MD Ca Carbonate/Vitamin D3/Vit K (Calcium + Vit D & K Chew Tab) 1 Each Tab.chew, 1 EACH PO DAILY, (Reported) Entered as Reported by: JAZMÍN CANTU on 01/13/161208 Last Action: HELD on 01/20/192016 by EMERALD CRUM MD Dabigatran Etexilate Mesylate (Pradaxa) 150 Mg Capsule, 1 CAP PO BID, #180 Ref 1 (Reported) Entered as Reported by: JAZMÍN CANTU on 01/13/161208 Last Action: HELD on 01/20/192016 by EMERALD CRUM MD Esomeprazole Magnesium (Nexium Capsule) 40 Mg Capsule.dr, 1 CAP PO DAILY, #30 Ref 5 (Reported) Entered as Reported by: KORY SO on 11/03/15 1916 Last Action: Converted on 01/20/192017 by EMERALD CRUM MD Gabapentin (Gabapentin ) 100 Mg Capsule, 100 MG PO TID, (Reported) Entered as Reported by: JAZMÍN CANTU on 01/13/161208 Last Action: Continued on 01/20/192017 by EMERALD CRUM MD Ginkgo Biloba Extract (Ginkgo Biloba) 120 Mg Capsule, 120 MG PO DAILY, (Reported ) Entered as Reported by: JAZMÍN CANTU on 01/13/161208 Last Action: Converted on 01/20/192017 by EMERALD CRUM MD Glucosamine/Chondroitin Sulf A (Glucosamine Chondroitin Cap) 1 Each Capsule, 1 EACH PO DAILY, (Reported) Entered as Reported by: JAZMÍN CANTU on 01/13/161208 Last Action: Converted on 01/20/192017 by EMERALD CRUM MD Isosorbide Mononitrate (Isosorbide Mononitrate Er) 30 Mg Tab.er.24h, 30 MG PO DAILY, #30 Ref 5 Prescribed by: CED CARDENAS on 01/20/16 1031 Last Action: Continued on 01/20/192017 by EMERALD CRUM MD Krill Oil/[place]-3/Dha/Epa ([place]-3 Krill Oil Softgel) 1 Each Capsule, 1 EACH PO DAILY, (Reported) Entered as Reported by: JAZMÍN CANTU on 01/13/161208 Last Action: Converted on 01/20/192017 by EMERALD CRUM MD Lansoprazole (Lansoprazole) 15 Mg Capsule.dr, 15 MG PO DAILY, (Reported) Entered as Reported by: JAZMÍN CANTU on 01/13/161208 Last Action: HELD on 01/20/192016 by EMERALD CRUM MD Lecithin, Soy (Lecithin) 400 Mg Capsule, 400 MG PO DAILY, (Reported) Entered as Reported by: JAZMÍN CANTU on 01/13/161208 Last Action: Converted on 01/20/192017 by EMERALD CRUM MD Multivitamin (Multivitamins) 1 Each Tablet, 1 EACH PO DAILY, (Reported) Entered as Reported by: MARCELO RÍOS on 06/02/15 1545 Last Action: Converted on 01/20/192017 by EMERALD CRUM MD Potassium Chloride (Potassium Chloride) 10 Meq Capsule.er, 1 CAP PO DAILY, #90 Ref 1 (Reported) Entered as Reported by: JAZMÍN CANTU on 01/13/161208 Last Action: Continued on 01/20/192017 by EMERALD CRUM MD Vitamin B Complex (Vitamin B Complex) 1 Each Capsule, 1 EACH PO DAILY, (Reported ) Entered as Reported by: JAZMÍN CANTU on 01/13/161208 Last Action: Converted on 01/20/192017 by EMERALD CRUM MD Vitamin E (Dl,Tocopheryl Acet) (Vitamin E) 400 Unit Capsule, 400 UNIT PO DAILY, (Reported) Entered as Reported by: JAZMÍN CANTU on 01/13/161208 Last Action: HELD on 01/20/192016 by EMERALD CRUM MD Scheduled PRN Furosemide (Furosemide) 40 Mg Tablet, 1 TAB PO DAILY PRN for SEE COMMENTS, #30 Ref 5 (Reported) Entered as Reported by: JAZMÍN CANTU on 01/13/161208 Last Action: HELD on 01/20/192016 by EMERALD CRUM MD Hydrocodone Bit/Acetaminophen (Hydrocodone-Apap 10-325 ) 1 Each Tablet, 1 TAB PO PRN Q6HRS PRN for PAIN MDD 1, #30 Ref 0 Prescribed by: NORMA SANDOVAL on 01/24/19 0951 Ibuprofen (Ibuprofen) 200 Mg Tablet, 200 MG PO PRN Q6HRS PRN for INFLAMMATION, ( Reported) Entered as Reported by: JAZMÍN CANTU on 01/13/161208 Last Action: HELD on 01/20/192016 by EMERALD CRUM MD Oxycodone/Apap 10-325 (Percocet 10-325 Mg Tablet ) 1 Each Tablet, 1 TAB PO PRN Q6HRS PRN for PAIN, Ref 0 (Reported) Entered as Reported by: JAZMÍN CANTU on 01/13/161208 Last Action: HELD on 01/20/192016 by EMERALD CRUM MD Sucralfate (Carafate) 1 Gm/10 Ml Oral.susp, 1 GM PO for HEARTBURN / GAS, ( Reported) Entered as Reported by: JAZMÍN CANTU on 01/13/161208 Tramadol Hcl (Tramadol Hcl) 50 Mg Tablet, 50-100 MG PO Q4-6HRS PRN for PAIN, ( Reported) Entered as Reported by: RAFITA BOLTON [facility] on 11/03/15 1410 Last Action: Continued on 01/20/192017 by EMERALD CRUM MD Miscellaneous Medications Cholecalciferol (Vitamin D3) (Vitamin D3) 400 Unit Tablet, 400 UNIT PO, ( Reported) Entered as Reported by: MARCELO RÍOS on 06/02/15 1545 NORMA SANDOVAL MD Jan 24, 2019 11:54
[2019-01-24] MEDS: HYDROcodone/APAP 10/325 1 TAB TABLET PO PRN (13:36)
[2019-01-24 15:00] VITALS: BP 131/77
--- NOTE | 2019-01-24 16:10 | NUR ---
Pt was given all discharge instructions, follow up info, new prescriptions, and teaching. Pt is stable. Alert x4. Pt is going with home health services-[facility]. They will continue PT/OT. He should use walker while ambulating. Pt will follow up with Dr. Moralez in 3-4 weeks. Pt was tested for cdiff and any critical results should be reported to pt. Information was given on this. Pt left to 1610, via wheelchair, escorted by [facility] MIRROR INSPECTOR. All belongings left with patient at time of discharge. Discharge info was explained in detail to at bedside.
== END 2019-01-24 16:10 | disposition home health service (06) | DRG 551 ==
LOC: ER 15:04 → 4 NORTH 18:11
PROVIDERS: ADMIT Internal Medicine; ATTEND Internal Medicine
DX: S12.110A Anterior displaced Type II dens fracture, initial encounter for closed fracture (principal); G93.41 Metabolic encephalopathy; S12.091A Other nondisplaced fracture of first cervical vertebra, initial encounter for closed fracture; S01.01XA Laceration without foreign body of scalp, initial encounter; I10 Essential (primary) hypertension; E78.00 Pure hypercholesterolemia, unspecified; G62.9 Polyneuropathy, unspecified; K21.9 Gastro-esophageal reflux disease without esophagitis; Z90.49 Acquired absence of other specified parts of digestive tract; Z82.49 Family history of ischemic heart disease and other diseases of the circulatory system; I25.10 Atherosclerotic heart disease of native coronary artery without angina pectoris; M17.12 Unilateral primary osteoarthritis, left knee; W18.30XA Fall on same level, unspecified, initial encounter; Y92.009 Unspecified place in unspecified non-institutional (private) residence as the place of occurrence of the external cause; R13.10 Dysphagia, unspecified; X58.XXXA Exposure to other specified factors, initial encounter; Z85.72 Personal history of non-Hodgkin lymphomas; Z85.830 Personal history of malignant neoplasm of bone; Z92.3 Personal history of irradiation; M71.20 Synovial cyst of popliteal space [Baker], unspecified knee
CPT/HCPCS: 12013; 36415; 70450; 70498; 72125; 72141; 73562; 73700; 80053; 82962; 85025; 85610; 87493; 90471; 90715; J1040; J1815; J2060; J2270; J3010; J3490; J7030; Q9967; 92610; 97116; 97535; 99285-25

== ENCOUNTER → 2019-02-12 | Outpatient (CLI) | payer MEDICARE ==
[2019-01-24 15:00] VITALS: BP 131/77
--- NOTE | 2019-02-12 11:30 | RAD ---
Cervical spine, 2 views, 02/12/2019: HISTORY: C1-2 fracture The images are correlated with a CT study from 01/20/2019. The fracture of the base of the odontoid process is again noted. Slight posterior displacement of the odontoid process relative to the remainder of the C2 vertebral body appears similar to that seen on the CT study. The known fracture of the right lamina at C1 is not clearly defined radiographically. No displaced C1 fracture is evident. There is a mild left convexity cervical scoliosis. There are moderate degenerative changes in the mid and lower cervical spine with involvement of multiple facet joints bilaterally. Slight anterolisthesis at C6-7 appears unchanged. The C7 vertebra is not well defined in the lateral projection due to the high position of the patient shoulders. No new fracture or subluxation is evident. IMPRESSION: 1. Stable, minimally displaced odontoid fracture 2. Moderate multilevel degenerative change with mild anterolisthesis at C6-7 due to facet joint arthropathy. 3. Mild cervical scoliosis. Electronically signed by: Otis Aranda MD (02/12/2019 11:28 AM) [facility]
== END | disposition home or self-care (01) ==
LOC: RAD 10:18
PROVIDERS: ATTEND Neurological Surgery
DX: S12.110D Anterior displaced Type II dens fracture, subsequent encounter for fracture with routine healing (principal); S12.100D Unspecified displaced fracture of second cervical vertebra, subsequent encounter for fracture with routine healing; M47.812 Spondylosis without myelopathy or radiculopathy, cervical region; M43.12 Spondylolisthesis, cervical region; M12.88 Other specific arthropathies, not elsewhere classified, other specified site; M41.82 Other forms of scoliosis, cervical region; X58.XXXD Exposure to other specified factors, subsequent encounter
CPT/HCPCS: 72040

== ENCOUNTER → 2019-04-16 | Outpatient (CLI) | payer MEDICARE ==
--- NOTE | 2019-04-16 16:45 | RAD ---
EXAM: CT CERVICAL SPINE WITHOUT CONTRAST. HISTORY: C1 and C2 fractures. TECHNIQUE: Computed tomography of the cervical spine was performed without intravenous contrast. COMPARISON: 01/20/2019. FINDINGS: A type II odontoid fracture is again noted. There is minimal posterior displacement of <2 mm. This is unchanged. A nondisplaced fracture of the right posterior ring of C1 is also again noted. No healing response is yet detectable. There is mild osteoarthritis at C1-2. Degenerative disc disease is moderate from C4 through C6 and mild at other cervical levels. There is 2 mm anterolisthesis at C6-7 from facet osteoarthritis. There is no prevertebral soft tissue swelling. Images of the lung apices reveal a few calcified granulomas. At C2-3, there is a small posterior disc bulge. There is no stenosis. At C3-4, there is a moderate posterior disc-osteophyte complex. Right facet and uncovertebral osteoarthritis are moderate. There are mild on the left. Neural foraminal stenosis is moderate to severe on the right and mild on the left. Central canal stenosis appears mild. At C4-5, there is a small posterior disc-osteophyte complex. Right facet and uncovertebral osteoarthritis are moderate to severe. They are moderate on the left. Neural foraminal stenosis is moderate to severe on the right greater than left. At C5-6, there is a small posterior disc bulge. Facet osteoarthritis is moderate to severe on the right greater than left. Uncovertebral osteoarthritis is moderate on the left and mild on the right. Neural foraminal stenosis is moderate to severe on the left and moderate on the right. At C6-7, facet osteoarthritis is moderate on the right greater than left. Neural foraminal stenosis is mild to moderate bilaterally. IMPRESSION: 1. No interval change or clear healing response along a minimally posteriorly displaced type II odontoid fracture, and a nondisplaced fracture of the right posterior ring of C1. 2. Moderate to severe degenerative changes of the cervical spine as detailed above result in mild central canal stenosis at C3-4, and multifocal moderate to severe neural foraminal stenosis worst at C4-5 as above. *One or more of the following individualized dose reduction techniques were utilized for this examination: 1. Automated exposure control. 2. Adjustment of the mA and/or kV according to patient size. 3. Use of iterative reconstruction technique. Electronically signed by: Stacey Pedro MD (04/16/2019 4:42 PM) [facility]
== END | disposition home or self-care (01) ==
LOC: CT 11:36
PROVIDERS: ATTEND Neurological Surgery
DX: S12.110A Anterior displaced Type II dens fracture, initial encounter for closed fracture (principal); S12.091A Other nondisplaced fracture of first cervical vertebra, initial encounter for closed fracture; M47.812 Spondylosis without myelopathy or radiculopathy, cervical region; M50.322 Other cervical disc degeneration at C5-C6 level; M48.02 Spinal stenosis, cervical region; X58.XXXA Exposure to other specified factors, initial encounter; Y93.89 Activity, other specified; Y92.89 Other specified places as the place of occurrence of the external cause; Y99.8 Other external cause status
CPT/HCPCS: 72125

== ENCOUNTER → 2019-04-25 | Outpatient (CLI) | payer MEDICARE ==
[2019-04-25 09:38] LABS: CHOLESTEROL/HDL RATIO 2.4
== END | disposition home or self-care (01) ==
LOC: LAB 08:58
PROVIDERS: ATTEND Internal Medicine Cardiovascular Disease
DX: E78.5 Hyperlipidemia, unspecified (principal)
CPT/HCPCS: 36415; 80061

== ENCOUNTER → 2019-05-21 | Outpatient (CLI) | payer MEDICARE ==
--- NOTE | 2019-05-21 11:03 | RAD ---
CT scan of the cervical spine without contrast 05/31/2019 Clinical history: Odontoid fracture. Technique: Unenhanced, contiguous, 0.625 mm axial sections were obtained through the cervical spine. 3 mm axial, coronal and sagittal reconstructed images were obtained. One or more of the following individualized dose reduction techniques were utilized for this study: 1. Automated exposure control. 2. Adjustment of the mA and/or kV according to patient size. 3. Use of iterative reconstruction technique. Findings: Comparison study is dated 04/16/2019. Sagittal and coronal reconstructed images demonstrate minimal lateral curvature of the cervical spine, convex to the left. There is mild straightening of the normal cervical lordosis. Degenerative changes consisting of disc space narrowing, vertebral endplate sclerosis and mild to moderate anterior and posterior vertebral body osteophyte formation are seen throughout the cervical disc spaces. A type II odontoid fracture is again noted. The alignment of the fracture fragments is unchanged. No callus formation is seen at this time. A nondisplaced fracture of the right posterior arch of C1 is again noted. No significant callus formation is seen. No additional fracture is noted. Degenerative changes are seen involving the uncovertebral and facet joints throughout the cervical disc spaces. IMPRESSION: Stable CT appearance of the type II odontoid fracture and fracture involving the right aspect of the arch of C1. Electronically signed by: Presley Main MD (05/21/2019 10:59 AM) [place] [id number]
== END | disposition home or self-care (01) ==
LOC: CT 08:46
PROVIDERS: ATTEND Neurological Surgery
DX: S14.151A Other incomplete lesion at C1 level of cervical spinal cord, initial encounter (principal); S12.110A Anterior displaced Type II dens fracture, initial encounter for closed fracture; M25.78 Osteophyte, vertebrae; X58.XXXA Exposure to other specified factors, initial encounter; Y93.89 Activity, other specified; Y92.89 Other specified places as the place of occurrence of the external cause; Y99.8 Other external cause status
CPT/HCPCS: 72125

== ENCOUNTER → 2019-05-22 | Outpatient (CLI) | payer MEDICARE ==
--- NOTE | 2019-05-22 17:03 | RAD ---
Examination: CERVICAL SPINE 2-3V History: Odontoid fracture Comparison/Correlation: 05/21/2019 CT cervical spine without contrast Findings: Flexion and extension lateral views of cervical spine were obtained. Alignment is unremarkable. Osteopenia noted. Fracture at the base of the odontoid evident. C3-4 disc space narrowing is present. Impression: Alignment is unremarkable. No significant change in orientation of the odontoid fracture on flexion versus extension imaging. Electronically signed by: Tom Augustin MD (05/22/2019 5:00 PM) [facility]
== END | disposition home or self-care (01) ==
LOC: RAD 14:09
PROVIDERS: ATTEND Neurological Surgery
DX: M48.02 Spinal stenosis, cervical region (principal); M85.88 Other specified disorders of bone density and structure, other site; M43.12 Spondylolisthesis, cervical region
CPT/HCPCS: 72040

== ENCOUNTER → 2019-06-05 | Outpatient (CLI) | payer MEDICARE ==
--- NOTE | 2019-06-06 10:48 | RAD ---
EXAM: Lateral extension and lateral flexion views of the cervical spine DATE: 06/05/2019 12:00 AM INDICATION: Odontoid fracture COMPARISON: 05/22/2019, 02/12/2019, CT 05/21/2019 FINDINGS: The known odontoid fracture and posterior elements of C1 fracture is again seen, grossly stable in alignment. On the flexion and extension images, there is no displacement of the odontoid relative to the base. Predental space continues to measure 2 mm on the flexion and extension images. Multilevel degenerative changes are profiled on recent prior CT 05/21/2019 IMPRESSION: Odontoid fracture without definite displacement on the flexion or extension images. No renal space widening on the flexion or extension images. Electronically signed by: Amandeep Diane MD (06/06/2019 10:45 AM) [facility]
== END | disposition home or self-care (01) ==
LOC: RAD 08:55
PROVIDERS: ATTEND Neurological Surgery
DX: S12.110D Anterior displaced Type II dens fracture, subsequent encounter for fracture with routine healing (principal); M50.30 Other cervical disc degeneration, unspecified cervical region; X58.XXXD Exposure to other specified factors, subsequent encounter
CPT/HCPCS: 72040

== ENCOUNTER → 2019-06-18 | Outpatient (CLI) | payer MEDICARE ==
--- NOTE | 2019-06-18 17:32 | RAD ---
Examination: CERVICAL SPINE 2-3V History: Neck pain, recent cervical fracture Comparison/Correlation: 05/22/2019 cervical spine x-ray exam Findings: Flexion and extension views of the cervical spine were obtained. Alignment of the cervical spine is within normal limits. Spurring from C4 to C6 is present anteriorly. Mild disc space narrowing from C3 to C6 noted at multiple disc space levels. No displacement of the odontoid is identified on flexion or extension imaging. Impression: No significant interval change. Stable odontoid fracture. No change in flexion or extension imaging. Electronically signed by: Tom Augustin MD (06/18/2019 5:29 PM) [facility]
== END | disposition home or self-care (01) ==
LOC: RAD 16:26
PROVIDERS: ATTEND Neurological Surgery
DX: M84.48XA Pathological fracture, other site, initial encounter for fracture (principal); M48.02 Spinal stenosis, cervical region
CPT/HCPCS: 72040

== ENCOUNTER → 2019-10-24 | Outpatient (CLI) | payer MEDICARE ==
[~2019-10-24] MED LIST changes: -KRIL1CAP PO; +KRIL1CAP7 PO; -LYSI500T PO; +LYSI500T8 PO; +POTASSIUM CHLO10 ME1 PO; +REGADENOSON 0.4 MG/5 ML DISP.SYRIN. IV ONE
--- NOTE | 2019-10-24 10:55 | CARD ---
MR#: [id number] Date of Study: 10/24/2019 Ordering Physician: CED CARDENAS, Referring Physician: CED CARDENAS, Tech: Subha Washington APPROVED REPORT EXAM: Two-dimensional and M-mode echocardiogram with Doppler and color Doppler. Other Information Quality : AverageHR: 52bpm Technically limited study due to body habitus. INDICATION Cardiac Disease: CAD RISK FACTORS Hypertension 2D DIMENSIONS Left Atrium(2D)4.1 (1.6-4.0cm)IVSd1.2 (0.7-1.1cm) Aortic Root(2D)2.9 (2.0-3.7cm)LVDd4.8 (3.9-5.9cm) LVOT Diameter2.1 (1.8-2.4cm)PWd1.1 (0.7-1.1cm) LVDs3.4 (2.5-4.0cm)FS (%) 30.5 % SV63.1 mlLVEF(%)57.8 (>50%) Aortic Valve AoV Peak Nito.131.0cm/sAoV VTI27.0cm AO Peak GR.6.9mmHgLVOT Peak Nito.101.7cm/s LVOT VTI 25.03cmAO Mean GR.3mmHg VITA (VMAX)1.11md6WTJ (VTI)3.21cm2 Mitral Valve MV E Oxzhjsts35.2cm/sMV DECEL QEOT155il MV A Cgapjukc353.7cm/sMV KYO661kc E/A Ratio0.7MVA (PHT)1.70cm2 TDI E/Lateral E'12.7E/Medial E'16.0 Pulmonary Valve PV Peak Rvyoaxdz062.2cm/sPV Peak Grad.4mmHg Tricuspid Valve TR P. Undcikdn111ho/sRAP FYFMSISX1wqBw TR Peak Gr.57knQkLPOV02ceGl Pulmonary Vein S1 Jeztyczv70.8cm/sD2 Tssidnbq79.8cm/s PVa qhjykwho068fiox LEFT VENTRICLE The left ventricle is normal size. There is mild concentric left ventricular hypertrophy. The left ve ntricular systolic function is normal and the ejection fraction is within normal range. The Ejection Fraction is 55%. There is normal LV segmental wall motion. Transmitral Doppler flow pattern is Grade I-abnormal relaxation pattern. RIGHT VENTRICLE The right ventricle is normal size. There is normal right ventricular wall thickness. The right ventr icular systolic function is normal. ATRIA The left atrium size is normal. The right atrium size is normal. The interatrial septum is intact wit h no evidence for an atrial septal defect or patent foramen ovale as noted on 2-D or Doppler imaging. AORTIC VALVE Not well visualized. Doppler and Color Flow revealed no significant aortic regurgitation. There is no significant aortic valvular stenosis. MITRAL VALVE Not well visualized. There is no evidence of mitral valve prolapse. There is no mitral valve stenosis . Doppler and Color-flow revealed trace mitral regurgitation. TRICUSPID VALVE Not well visualized. Doppler and Color Flow revealed trace tricuspid regurgitation with an estimated PAP of 31 mmHg. There is no tricuspid valve stenosis. PULMONIC VALVE The pulmonic valve is not well visualized. Doppler and Color Flow revealed no pulmonic valvular regur gitation. There is no pulmonic valvular stenosis. GREAT VESSELS The aortic root is normal in size. The IVC is normal in size and collapses >50% with inspiration. PERICARDIAL EFFUSION There is no evidence of significant pericardial effusion. Critical Notification Critical Value: No <Conclusion> The left ventricular systolic function is normal and the ejection fraction is within normal range. Th e Ejection Fraction is 55%. There is normal LV segmental wall motion. Technically difficult study Signed by : Andre Chapin, Electronically Approved : 10/24/2019 10:54:56
--- NOTE | 2019-10-24 13:47 | RAD ---
MR#: [id number] Date of Study: 10/24/2019 Ordering Physician: CED CARDENAS, Referring Physician: MARY CARMEN Tech: GINGER Gamez, ARRT (R) (N) APPROVED REPORT Test Type: Pharmacological Stress Nurse/Tech: Mariya Thompson R.N. Test Indications: cad Cardiac History: htn, cad Medications: see ehr Medical History: see ehr Resting ECG: SR Resting Heart Rate: 54 bpm Resting Blood Pressure: 135/71mmHg Pretest Chest Pain: No chest pain Nurse/Tech Notes lungs cta, heart tones regular Consent: The procedure was explained to the patient in lay terms. Informed consent was witnessed. Fernando eout was entered into e27. History and Stress Test performed by RT Denisse (Milana) (N) Pharm. Details Pharmacologic stress testing was performed using 0.4mg per 5ml of regadenoson given intravenously ove r 7-10 seconds. Stress Symptoms No chest pain or symptoms. POST EXERCISE Reason for Termination: Infusion complete Target HR: No Max HR: 75 bpm Max Blood Pressure: 144/65mmHg Chest Pain: No. Arrhythmia: Yes. [address] Change: No. INTERPRETATION Stress EKG Conclusion: No evidence of stress induced EKG changes Imaging Protocol IMAGE PROTOCOL: Rest Tc-99m/stress Tc-99m 1 day Rest: Stress: Viability: Radiopharm.Tc99m ItgnvxmlfLf48t Sestamibi Dose10.5mCi 33mCi Img Date 10/24/2019 10/24/2019 Inj-Img Cyeu44tou. 60min. Rest Admin Site:IV - Right AntecubitalAdministrator:RT Theresa (R)(N) Stress Admin Site: IV - Right AntecubitalAdministrator: RT Denisse (Milana)(N) STRESS DATA End Diast. Vol.55.0mlLVEDV index BSA25.0ml End Syst. Vol.8.0mlLVESV index BSA3.0ml Myocardial Nwou339.0gEject. Dotlkfmh34.0% Stress Scores Regional WT0.00Summed WT3.00 Regional WM0.00Summed WM3.00 The rest and stress images show normal perfusion, normal contraction and thickening. LV Perf. Quant 17 Seg. SSS3.00 17 Seg. SRS0.00 17 Seg. SDS3.00 Stress Defect Extent (% LAD)0.00Rest Defect Extent (% LAD)0.00Rev. Defect Extent (% LAD)0.00 Stress Defect Extent (% LCX) 17.50Rest Defect Extent (% LCX)0.00Rev. Defect Extent (% LCX)12.50 Stress Defect Extent (% RCA)0.00Rest Defect Extent (% RCA)0.00Rev. Defect Extent (% RCA)0.00 Stress Defect Extent (% ENRIQUE)3.00Rest Defect Extent (% ENRIQUE)0.00Rev. Defect Extent (% ENRIQUE)2.20 Other Information Quality:Good Risk Assessment: Low Risk Conclusion 1. No evidence of EKG changes with stress testing. 2. Normal perfusion at stress/rest. 3. Low risk study. 4. EF > 60%. Signed by : Andre Chapin, Electronically Approved : 10/24/2019 13:46:54
== END | disposition home or self-care (01) ==
LOC: ECHO 08:10
PROVIDERS: ATTEND Internal Medicine Cardiovascular Disease
DX: I49.3 Ventricular premature depolarization (principal); I11.9 Hypertensive heart disease without heart failure; I25.10 Atherosclerotic heart disease of native coronary artery without angina pectoris
CPT/HCPCS: 78452; 93017; 93306; A9500; J2785

== ENCOUNTER → 2020-03-17 | Outpatient (CLI) | payer MEDICARE ==
[~2020-03-17] MED LIST changes: -REGADENOSON 0.4 MG/5 ML DISP.SYRIN. IV ONE
--- NOTE | 2020-03-17 09:11 | RAD ---
EXAM: CT Cervical Spine without IV contrast INDICATION: History of fracture. Fall. Neck pain. TECHNIQUE: Multi-detector row CT images were obtained through the cervical spine without the use of IV contrast. Post-processing sagittal and coronal reconstructed images were obtained for interpretation. All CT scans performed at this facility utilize dose optimization techniques as appropriate to the exam, including the following: Automated exposure control and adjustment of the mA and/or KV according to patient size (this includes techniques or standardized protocols for targeted exams where dose is indication/reason for exam). COMPARISON: C-spine MRI of 01/22/2019, C-spine CT of 05/21/2019 FINDINGS: CRANIOCERVICAL JUNCTION: Unremarkable. ALIGNMENT: Alignment shows subtle interval increased apex anterior angulation to the type II odontoid process fracture with angle of tilt of the odontoid relative to the C2 body now measuring 140 degrees compared with 159 degrees previously. No listhesis appreciated at this level.. Stable 1 to 2 mm anterolisthesis of C6 on C7. Alignment is otherwise unremarkable. OSSEOUS: Previously reported right posterior C1 arch fracture has healed. The type II odontoid process fracture however shows no significant osseous bridging with the fracture line still evident, now with more sclerotic margins. No new fractures. Generalized osteopenia. No aggressive appearing osseous lesions.. DISC SPACES: Multilevel disc degenerative change with narrowing and endplate osteophytic spurring is redemonstrated, similar to prior. FACET JOINTS: Multilevel bilateral facet hypertrophy. SPINAL CANAL: Unremarkable. NEUROFORAMINA: Varying degrees of foraminal narrowing, most conspicuous on the right at C3-C4 and C4-C5, and on the left at C5-C6. SOFT TISSUES: Unremarkable. IMPRESSION: 1. Type II odontoid process fracture delayed union or nonunion with slightly greater apex anterior angulation but no listhesis as described. 2. Interval healing of the posterior right C1 arch fracture. 3. Multilevel cervical degenerative spondylosis.. Electronically signed by: Richard Arita MD (03/17/2020 9:08 AM) [id number]
== END ==
LOC: CT 08:25
PROVIDERS: ATTEND Neurological Surgery
DX: M54.2 Cervicalgia (principal); M47.892 Other spondylosis, cervical region; W19.XXXD Unspecified fall, subsequent encounter; Z87.81 Personal history of (healed) traumatic fracture
CPT/HCPCS: 72125

== ENCOUNTER → 2020-03-19 | Outpatient (CLI) | payer MEDICARE ==
--- NOTE | 2020-03-19 11:26 | RAD ---
CERVICAL SPINE FLEX EXT ONLY History: Neck pain. Technique: Flexion and extension views of the cervical spine. Comparison: CT March 17, 2020 Findings: Chronic type II dens fracture difficult to evaluate on extension view due to overlying structures. There is posterior positioning of the odontoid body relation to the tip of the dens on flexion views approximately 3 mm. Crescentic 1 anterolisthesis C6 on C7, unchanged in flexion and extension. Moderate multilevel cervical spondylosis most prominent C3-C4, C4-C5 and C5-C6. Multilevel facet arthropathy. Prevertebral soft tissues unremarkable. C7-T1 articulation not well seen on lateral views. Impression: 1. Chronic T2 dens fracture with posterior subluxation of the odontoid body in relation to the tip of the dens on flexion view. Evaluation is degraded on extension due to overlying structures. 2. Grade 1 anterolisthesis C6 on C7, unchanged. 3. Moderate multilevel cervical spondylosis. Electronically signed by: Kyle Davis DO (03/19/2020 11:23 AM) [id number]
== END | disposition home or self-care (01) ==
LOC: RAD 10:17
PROVIDERS: ATTEND Neurological Surgery
DX: S12.120A Other displaced dens fracture, initial encounter for closed fracture (principal); S23.110A Subluxation of T1/T2 thoracic vertebra, initial encounter; M47.812 Spondylosis without myelopathy or radiculopathy, cervical region; X58.XXXA Exposure to other specified factors, initial encounter; Y93.89 Activity, other specified; Y92.89 Other specified places as the place of occurrence of the external cause; Y99.8 Other external cause status
CPT/HCPCS: 72040

== ENCOUNTER → 2020-04-30 | Outpatient (CLI) | payer MEDICARE ==
[~2020-04-30] MED LIST changes: +MULT-445 PO; -MULT1TAB52 PO
--- NOTE | 2020-04-30 08:37 | RAD ---
MR#: [id number] Date of Study: 04/30/2020 Ordering Physician: CED CARDENAS, Referring Physician: CED CARDENAS, Tech: Chema Blanchard MBA, RDMS, RVT, RDCS, RTR APPROVED REPORT Patient Location : OUT-PATIENT Indications VENOUS INSUFFICIENCY Greater Saphenous Veins (GSV) Significant venous relux noted in the LEFT GSV at the following levels : Proximal Thigh Lesser Saphenous Veins (LSV) Significant venous reflux is noted in the Right LSV AND PROXIMAL LT LSV. Findings Grayscale images of the bilateral greater and lesser saphenous veins did not show any obvious evidenc e of thrombus. The right great saphenous vein measures 7.1 mm and does not show any evidence of reflux. The left great saphenous vein measures 7.7 mm and has a maximum reflux time of 1.5 seconds. The vess el is tortuous. The right lesser saphenous vein measures 3.1 mm and has a reflux time of 3.6 seconds. The left lesser saphenous vein measures 3.3 mm and has a maximum reflux time of 3.1 seconds. Critical Notification Critical Value: No <Conclusion> 1. Positive for reflux in the bilateral lesser saphenous veins and the left greater saphenous vein Signed by : Andre Chapin, Electronically Approved : 04/30/2020 08:36:59
== END | disposition home or self-care (01) ==
LOC: US 07:33
PROVIDERS: ATTEND Internal Medicine Cardiovascular Disease
DX: I87.2 Venous insufficiency (chronic) (peripheral) (principal)
CPT/HCPCS: 93970

== ENCOUNTER → 2020-10-27 | Outpatient (CLI) | payer MEDICARE ==
[~2020-10-27] MED LIST changes: +ASCO100019 PO; -ASCO10002 PO; -OXYC-411 PO; +OXYC1TAB20 PO
--- NOTE | 2020-10-27 09:59 | RAD ---
MR#: [id number] Date of Study: 10/27/2020 Ordering Physician: CED CARDENAS, Referring Physician: CED CARDENAS, Tech: Chema Blanchard MBA, RDMS, RVT, RDCS, RTR APPROVED REPORT Patient Location: OUT-PATIENT Laterality:Bilateral Indications Bruit Doppler Spectral Velocity Analysis Right Left pCCA 71/13 cm/spCCA 106/23 cm/s mCCA 72/16 cm/smCCA 72/16 cm/s dCCA 81/19 cm/sdCCA 95/19 cm/s Bulb 77/17 cm/sBulb 93/15 cm/s ECA 126/ cm/sECA 146/ cm/s pICA 59/15 cm/spICA 69/18 cm/s Ramone 77/20 cm/smICA 88/24 cm/s dICA 85/29 cm/sdICA 76/26 cm/s Vert. 42/ cm/sVert. 51/ cm/s Subcl. 94/ cm/sSubcl. 79/ cm/s ICA/CCA 1.05ICA/CCA 0.83 Findings Grayscale images demonstrate mild plaque at the level of the carotid bulbs. No significant flow rest riction is noted. Spectral waveforms and color Doppler in the bilateral internal carotid vessels are within normal limi ts overall suggestive of 0 to less than 50% stenosis based on velocity criteria. Normal ICA to CCA r atios bilaterally. Bilateral vertebral velocities are antegrade. Critical Notification Critical Value: No <Conclusion> 1. No significant carotid occlusive disease. Signed by : Andre Chapin, Electronically Approved : 10/27/2020 09:59:09
--- NOTE | 2020-10-27 11:50 | CARD ---
MR#: [id number] Date of Study: 10/27/2020 Ordering Physician: CED CARDENAS, Referring Physician: CED CARDENAS Tech: Chelsea Bone RDCS APPROVED REPORT EXAM: Two-dimensional and M-mode echocardiogram with Doppler and color Doppler. Other Information Quality : Good INDICATION Cardiac Disease: CAD 2D DIMENSIONS RVDd3.2 (2.9-3.5cm)Left Atrium(2D)4.1 (1.6-4.0cm) IVSd1.0 (0.7-1.1cm)Aortic Root(2D)3.3 (2.0-3.7cm) LVDd4.4 (3.9-5.9cm)LVOT Diameter2.3 (1.8-2.4cm) PWd0.9 (0.7-1.1cm)LVDs2.9 (2.5-4.0cm) FS (%) 34.5 %SV54.9 ml LVEF(%)60.0 (>50%) Aortic Valve AoV Peak Nito.112.1cm/sAoV VTI26.5cm AO Peak GR.5.0mmHgLVOT Peak Nito.103.3cm/s AO Mean GR.3mmHgAVA (VMAX)3.83cm2 VITA (VTI)3.90cm2 Mitral Valve MV E Zcxvzmuf10.2cm/sMV DECEL ZXZO937aq MV A Daewsugs528.6cm/sE/A Ratio0.7 Tricuspid Valve TR P. Oxpeibly503kj/sRAP YEDLGIHS0jkDv TR Peak Gr.14sjUtHGCT29xxWg Pulmonary Vein S1 Vuivvpnn91.0cm/sD2 Rwwdjeer92.3cm/s LEFT VENTRICLE The left ventricle is normal size. There is normal left ventricular wall thickness. The left ventricu lar systolic function is normal and the ejection fraction is within normal range. The Ejection Fracti on is 55-60%. There is normal LV segmental wall motion. Transmitral Doppler flow pattern is Grade I-a bnormal relaxation pattern. RIGHT VENTRICLE The right ventricle is normal size. The right ventricular systolic function is normal. ATRIA The left atrium is mildly dilated. The right atrium size is normal. The interatrial septum is intact with no evidence for an atrial septal defect or patent foramen ovale as noted on 2-D or Doppler imagi ng. AORTIC VALVE The aortic valve is moderately thickened but opens well. Doppler and Color Flow revealed no significa nt aortic regurgitation. There is no significant aortic valvular stenosis. MITRAL VALVE The mitral valve is calcified but opens well. Posterior mitral annular calcification is mild. There i s no evidence of mitral valve prolapse. There is no mitral valve stenosis. Doppler and Color-flow rev ealed trace to mild mitral regurgitation. TRICUSPID VALVE The tricuspid valve is normal in structure and function. Doppler and Color Flow revealed trace to mil d tricuspid regurgitation. The PA pressure was estimated at 28 mmHg. There is no tricuspid valve sten osis. PULMONIC VALVE The pulmonary valve is normal in structure and function. Doppler and Color Flow revealed trace to mil d pulmonic valvular regurgitation. There is no pulmonic valvular stenosis. GREAT VESSELS The aortic root is normal in size. The ascending aorta is mild to moderately dilated at 3.8 cm. The I VC is normal in size and collapses >50% with inspiration. PERICARDIAL EFFUSION There is no evidence of significant pericardial effusion. Critical Notification Critical Value: No <Conclusion> The left ventricle is normal size. The left ventricular systolic function is normal and the ejection fraction is within normal range. The Ejection Fraction is 55-60%. There is normal LV segmental wall motion. Doppler and Color Flow revealed no significant aortic regurgitation. There is no significant aortic valvular stenosis. Doppler and Color-flow revealed trace to mild mitral regurgitation. Doppler and Color Flow revealed trace to mild tricuspid regurgitation. The PA pressure was estimated at 28 mmHg. The ascending aorta is mild to moderately dilated at 3.8 cm. Signed by : Christian Nicole MD Electronically Approved : 10/27/2020 11:49:52
== END ==
LOC: US 09:00
PROVIDERS: ATTEND Internal Medicine Cardiovascular Disease
DX: I08.8 Other rheumatic multiple valve diseases (principal); I65.23 Occlusion and stenosis of bilateral carotid arteries; I25.10 Atherosclerotic heart disease of native coronary artery without angina pectoris
CPT/HCPCS: 93306; 93880

== ENCOUNTER → 2020-12-04 | Outpatient (CLI) | payer MEDICARE ==
--- NOTE | 2020-12-04 16:59 | RAD ---
PQRS Compliance Statement: One or more of the following individualized dose reduction techniques were utilized for this examinat ion: 1. Automated exposure control 2. Adjustment of the mA and/or kV according to patient size 3. Use of iterative reconstruction technique CT CERVICAL SPINE WITHOUT CONTRAST Clinical Indication: Reason: C2 fracture / Spl. Instructions: / History: Comparison: CT cervical spine without contrast March 17, 2020. Technique: Noncontrast helical CT of the cervical spine was performed. Axial, sagittal, and coronal reconstructions were obtained. Findings: The type II odontoid fracture is still present. No subluxation of the fracture fragments is seen. The fracture fragments are by 3 mm which is unchanged. No callus formation or bony bridging is identified. Mild grade 1 anterolisthesis of C6 on C7, unchanged. The alignment is otherwise maintained. There is degenerative endplate spurring of the cervical spine. There is normal and mild disc space narrowing, most apparent at C5/C6. There is multilevel moderate facet hypertrophy. C3/C4: Disc osteophyte complex contributes to probably mild central canal stenosis. There is uncinate process hypertrophy and facet hypertrophy contribute to severe bilateral neural foraminal narrowing. C4/C5 and C5/C6: There is severe bilateral neural foraminal narrowing, due to uncovertebral and facet joint hypertrophy. Visualized soft tissues of the neck demonstrate no significant abnormalities. The visualized lung api paco are clear. IMPRESSION: 1. Nonunited type II odontoid fracture. 2. Multilevel neural foraminal narrowing due to uncovertebral and facet joint hypertrophy. Electronically signed by: Satya Garcia MD (12/04/2020 4:57 PM) [id number]
== END ==
LOC: CT 11:11
PROVIDERS: ATTEND Neurological Surgery
DX: S12.100D Unspecified displaced fracture of second cervical vertebra, subsequent encounter for fracture with routine healing (principal); M47.812 Spondylosis without myelopathy or radiculopathy, cervical region; M43.12 Spondylolisthesis, cervical region; M48.02 Spinal stenosis, cervical region; M25.78 Osteophyte, vertebrae; X58.XXXD Exposure to other specified factors, subsequent encounter
CPT/HCPCS: 72125

== ENCOUNTER 2021-10-15 14:40 | Emergency (ER) | payer MEDICARE ==
[~2021-10-15] VITALS: Ht 182.9 cm; Wt 100.0 kg
[~2021-10-15 14:40] MED LIST changes: +AZIT250T6 PO; +BENZ200C47 PO; +DOXY100C3 PO; -ISOS30TA4 PO; +ISOS30TA68 PO; +PRED-220 PO; +VITA-47 PO; -VITA400C6 PO
--- NOTE | 2021-10-15 17:20 | ED.ADGEN ---
Past Medical History Past Medical History: Cancer, DVT, High Cholesterol, Hypertension Additional Past Medical Histor: Hx LYMPHOMA OF LT HIP Past Surgical History: Cholecystectomy, Other Additional Past Surgical Histo: HERNIA, BILAT ROTATOR CUFFS, CANCER, KNEE Smoking Status: Never Smoker Alcohol Use: None Drug Use: None General Adult EDM: Chief Complaint: WOUND CHECK HPI: HPI: Patient is a 81-year-old male who arrives ambulatory to the emergency department seeking evaluation for ongoing wound of his right medial ankle. Patient states over the past month he has developed an ulcer of his right ankle which started out as a small focus of erythema and now has evolved into sloughing tissue. Patient was referred to the emergency department at the request of one of his ph ysicians for evaluation related to this condition. Patient has a distant history of bone cancer with radiation to his right leg and has had ongoing venous stasis since that time. Patient states he has had swelling as well of the right lower extremity and was encouraged to be evaluated for possible DVT. Despite this, the patient denies any fevers, trauma or rash otherwise. He de nies any shortness of air or history of blood clots as well. He is awake, alert and nontoxic-appearing. Review of Systems: Review of Systems: Constitutional: Denies fever or chills. [] Eyes: Denies change in visual acuity. [] HENT: Denies nasal congestion or sore throat. [] Respiratory: Denies cough or shortness of breath. [] Cardiovascular: Denies chest pain or edema. [] GI: Denies abdominal pain, nausea, vomiting, bloody stools or diarrhea. [] : Denies dysuria. [] Musculoskeletal: Lower extremity pain and swelling. Denies back pain or joint pain. [] Integument: Rash/ulceration of lower extremity. Neurologic: Denies headache, focal weakness or sensory changes. [] Endocrine: Denies polyuria or polydipsia. [] Lymphatic: Denies swollen glands. [] Psychiatric: Denies depression or anxiety. [] Current Medications: Current Medications Medications (Trade) Dose Ordered Sig/Chloé Start Time Stop Time Status Last Admin Dose Admin Acetaminophen/ Hydrocodone Bitart (Lortab 5/325) 1 tab 1X ONCE 10/15/21 19:00 10/15/21 19:01 UNV Cephalexin HCl (Keflex) 500 mg 1X STAT 10/15/21 18:46 10/15/21 18:47 UNV Allergies: Allergies: Allergies Coded Allergies Type Severity Reaction Last Updated Verified gabapentin Allergy Severe 06/11/21 Yes Physical Exam: PE: Constitutional: Well developed, well nourished, no acute distress, non-toxic appearance. [] HENT: Normocephalic, atraumatic, bilateral external ears normal, oropharynx moist, no oral exudates, nose normal. [] Eyes: PERRLA, EOMI, conjunctiva normal, no discharge. [] Neck: Normal range of motion, no tenderness, supple, no stridor. [] Cardiovascular:Heart rate regular rhythm, no murmur [] Lungs & Thorax: Bilateral breath sounds clear to auscultation [] Abdomen: Bowel sounds normal, soft, no tenderness, no masses, no pulsatile masses. [] Skin: Patient has evidence of venous stasis of his right lower extremity. There is soft tissue swelling present as well as a stage II stasis ulceration of the right medial leg distally. This is tender upon palpation and is moist however it is not weeping or draining. There is no other rash present warm, dry, no erythema, no rash. [] Back: No tenderness, no CVA tenderness. [] Extremities: Right lower extremity edema with venous stasis. There is tenderness palpation in and around the stasis ulcer. No cyanosis, no clubbing, ROM intact. [] Neurologic: Alert and oriented X 3, normal motor function, normal sensory function, no focal deficits noted. [] Psychologic: Affect normal, judgement normal, mood normal. [] Current Patient Data: Vital Signs: Vital Signs Date Time Temp Pulse Resp B/P (MAP) Pulse Ox O2 Delivery O2 Flow Rate FiO2 10/15/21 17:38 97.5 61 16 179/80 (113) 95 Room Air 97.5 EKG: EKG: [] Heart Score: C/O Chest Pain: No Risk Factors: Risk Factors: DM, Current or recent (<one month) smoker, HTN, HLP, family history of CAD, obesity. Risk Scores: Score 0 - 3: 2.5% MACE over next 6 weeks - Discharge Home Score 4 - 6: 20.3% MACE over next 6 weeks - Admit for Clinical Observation Score 7 - 10: 72.7% MACE over next 6 weeks - Early Invasive Strategies Radiology/Procedures: Radiology/Procedures: [facility] [address] [place] [address] IMAGING REPORT Signed PATIENT: MAYCOL LAOUNT: [id number] : 1940 LOCATION: ER AGE: 81 SEX: M EXAM STATUS: REG ER ORD. PHYSICIAN: CHINO WHITFIELD DO REASON: swelling/pain PROCEDURE: VENOUS LOWER EXTREMITY RIGHT Right lower extremity venous Doppler ultrasound History: Reason: swelling/pain. History of right lower extremity DVT. Comparison: Right lower extremity Venous Doppler Mar 29 2016. Procedure: Color flow Doppler, Doppler spectral analysis, and 2D images are obtained with and without compression in the area of the common femoral vein, superficial femoral vein - femoral vein junction, main femoral vein (superficial femoral vein) and popliteal vein. Veins of the proximal calf are also imaged. Findings: There is partially occlusive thrombus in the right common femoral vein through the distal superficial femoral vein. Color flow and augmentation are demonstrated. Findings are similar to the prior study and the thrombus is likely chronic. The posterior tibial vein demonstrates color flow. The peroneal vein is not identified. There is a superficial vein in the popliteal fossa that is i ncompletely compressible suggesting partial thrombus. IMPRESSION: 1. There is partially occlusive thrombus in the right common femoral vein through the distal superficial femoral vein that is similar in appearance to prior study and is likely chronic. No acute occlusive DVT is seen. 2. There is superficial thrombophlebitis of a varicosity in the popliteal fossa. Electronically signed by: Satya Garcia MD (10/15/2021 6:05 PM) [facility] DICTATED and SIGNED BY: SATYA GARCIA MD DATE: 10/15/21 [id number] [] Course & Med Decision Making: Course & Med Decision Making Pertinent Labs and Imaging studies reviewed. (See chart for details) At this time the patient is awaiting ultrasonography of the right lower extremity. Care has been transitioned to Dr. Mackey for further evaluation and treatment. The patient continues is in no acute distress and does not have any complaints at this time [] Accepted patient care at shift change. Pending ultrasound results. 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 On discussion with patient about findings he states that his student teacher had originally addressed the problem by trying to stented and then started isosorbide. We will start on prophylactic antibiotics and instructions given for wound care. Wound cleaned and rebandaged. Patient already has a follow-up appointment with wound care in 3 days. Dragon Disclaimer: Dragon Disclaimer: This electronic medical record was generated, in whole or in part, using a voice recognition dictation system. Departure Departure Impression: Primary Impression: Stasis ulcer of lower extremity Disposition: HOME / SELF CARE / HOMELESS Condition: STABLE Referrals: JASON EDWARDS MD (PCP) Patient Instructions: Wound Care, [facility] Scripts Cephalexin (CEPHALEXIN) 500 Mg Tablet 1 TAB PO TID for antibiotic for 7 Days, #21 TAB Prov: STEPHANIE MACKEY MD 10/15/21 Hydrocodone/Acetaminophen (Hydrocodone-Acetamin 5-325 mg) 1 Each Tablet 1 EACH PO PRN Q8-12HRS PRN for PAIN for 4 Days, #10 TAB Prov: STEPHANIE MACKEY MD 10/15/21 CHINO WHITFIELD DO Oct 15, 2021 17:20 STEPHANIE MACKEY MD Oct 15, 2021 18:54
[2021-10-15 17:38] VITALS: BP 179/80
--- NOTE | 2021-10-15 18:08 | RAD ---
Right lower extremity venous Doppler ultrasound History: Reason: swelling/pain. History of right lower extremity DVT. Comparison: Right lower extremity Venous Doppler Mar 29 2016. Procedure: Color flow Doppler, Doppler spectral analysis, and 2D images are obtained with and without compression in the area of the common femoral vein, superficial femoral vein - femoral vein junction , main femoral vein (superficial femoral vein) and popliteal vein. Veins of the proximal calf are als o imaged. Findings: There is partially occlusive thrombus in the right common femoral vein through the distal superficial femoral vein. Color flow and augmentation are demonstrated. Findings are similar to the prior study and the thrombus is likely chronic. The posterior tibial vein demonstrates color flow. The peroneal v ein is not identified. There is a superficial vein in the popliteal fossa that is incompletely compre ssible suggesting partial thrombus. IMPRESSION: 1. There is partially occlusive thrombus in the right common femoral vein through the distal superfi cial femoral vein that is similar in appearance to prior study and is likely chronic. No acute occlus lien DVT is seen. 2. There is superficial thrombophlebitis of a varicosity in the popliteal fossa. Electronically signed by: Satya Garcia MD (10/15/2021 6:05 PM) [facility]
[2021-10-15] MEDS ORDERED: CEPHALEXIN 250 MG CAPSULE. PO STA (18:46)
[2021-10-15] MEDS ORDERED: HYDR-2759 PO (18:53)
[2021-10-15] MEDS ORDERED: CEPH500T PO (18:53)
[2021-10-15] MEDS ORDERED: HYDROcodone/APAP 5/325MG 1 TAB TABLET PO ONE (19:00)
[2021-10-19] MEDS ORDERED: HYDR-2761 PO (08:54)
== END 2021-10-15 19:22 | disposition home or self-care (01) ==
LOC: ER 14:40
DX: I83.019 Varicose veins of right lower extremity with ulcer of unspecified site (principal); L97.919 Non-pressure chronic ulcer of unspecified part of right lower leg with unspecified severity; E78.00 Pure hypercholesterolemia, unspecified; I10 Essential (primary) hypertension; Z86.718 Personal history of other venous thrombosis and embolism; Z88.8 Allergy status to other drugs, medicaments and biological substances
CPT/HCPCS: 93971; 99284

== ENCOUNTER → 2021-10-30 | Outpatient (CLI) | payer MEDICARE ==
[2021-06-11 11:00] VITALS: BP_DIAS 80
[2021-10-15 17:38] VITALS: BP_SYST 179
[~2021-10-30] MED LIST changes: +CEPH500T PO; +HYDR-2759 PO; +HYDR-2761 PO; +HYDR-2767 PO
--- NOTE | 2021-10-30 10:51 | RAD ---
MR#: [id number] Date of Study: 10/30/2021 Ordering Physician: CED INGRAM, Referring Physician: CED INGRAM, Tech: Subha Westbrook RDMS, RVT, RTR APPROVED REPORT Patient Location : OUT-PATIENT Indications Venous Ulcers Varicose Veins Skin Changes Greater Saphenous Veins (GSV) Significant venous relux noted in the RIGHT GSV at the following levels : Superficial Femoral Junctio n, Proximal Thigh, Mid Thigh, Distal Thigh Lesser Saphenous Veins (LSV) Significant venous reflux is noted in the Right LSV. Findings Grayscale images were obtained and spectral waveform and color duplex analysis performed on superfici al veins right lower extremity and also corral boss veins underlying the wound in the right leg. The right saphenofemoral junction did not show any thrombus. The right greater saphenous vein measured 8 .7 mm at the saphenofemoral junction and showed significant reflux of 3.1 seconds. There was signifi cant reflux noted in the greater saphenous vein all the way up to the knee after which the vein becom es tortuous. There was thrombus noted in the vein below the knee. There were 2 incompetent perforat or veins noted, one of them within the wound measuring 3.8 mm and showing reflux of 2 seconds and the other one at the medial edge of the wound measuring 3.3 mm with a reflux of 2 seconds. The right le sser saphenous vein measured 10 mm at the saphenous popliteal junction and showed a significant reflu x of 1.4 seconds. Small amount of thrombus was noted in the very proximal segment with patent lumen. This vein showed significant reflux all the way to the ankle. Critical Notification Critical Value: No <Conclusion> Right lower extremity venous reflux study showed significant venous insufficiency involving the right greater and lesser saphenous veins. Also noted with 2 incompetent perforators underlying the nonhea ling wound as described above. Signed by : Ced Ingram, Electronically Approved : 10/30/2021 10:51:21
== END ==
LOC: US 08:49
PROVIDERS: ATTEND Internal Medicine Cardiovascular Disease
DX: S81.801A Unspecified open wound, right lower leg, initial encounter (principal); I82.401 Acute embolism and thrombosis of unspecified deep veins of right lower extremity; X58.XXXA Exposure to other specified factors, initial encounter; Y93.89 Activity, other specified; Y92.89 Other specified places as the place of occurrence of the external cause; Y99.8 Other external cause status
CPT/HCPCS: 93971

== ENCOUNTER → 2021-11-09 | Outpatient (CLI) | payer MEDICARE ==
[2021-10-15 17:38] VITALS: BP 179/80
[~2021-11-09] MED LIST changes: +REGADENOSON 0.4 MG/5 ML DISP.SYRIN. IV ONE
--- NOTE | 2021-11-09 17:15 | RAD ---
MR#: [id number] Date of Study: 11/09/2021 Ordering Physician: CED CARDENAS Referring Physician: MARY CARMEN Tech: MOMO Bello APPROVED REPORT Test Type: Pharmacological Stress Nurse/Tech: Lorraine Bach RN Test Indications: CAD Cardiac History: Hypertension Medications: See Electronic Medical Record Medical History: See Electronic Medical Record Resting ECG: SB Resting Heart Rate: 57 bpm Resting Blood Pressure: 155/87mmHg Pretest Chest Pain: No chest pain Nurse/Tech Notes S1,S2 and lungs clear to auscultation. Consent: The procedure was explained to the patient in lay terms. Informed consent was witnessed. Fernando eout was entered into [employer]. History and Stress Test performed by MOMO Bello Pharm. Details Pharmacologic stress testing was performed using 0.4mg per 5ml of regadenoson given intravenously ove r 7-10 seconds. Stress Symptoms Dyspnea POST EXERCISE Reason for Termination: Infusion complete Target HR: No Max HR: 71 bpm 60% of Maximum Predicted HR: 117 bpm Max Blood Pressure: 183/74mmHg Blood Pressure response to exercise: Normal blood pressure response during stress. Heart Rate response to exercise: WNL Chest Pain: No. Arrhythmia: No. ST Change: No. INTERPRETATION Stress EKG Conclusion: No evidence of stress induced EKG changes. Imaging Protocol IMAGE PROTOCOL: Rest Tc-99m/stress Tc-99m 1 day Rest: Stress: Viability: Radiopharm.Tc99m VxodftvidOr47c Sestamibi Dose10.5mCi 30mCi Duration 15min. 10min. Img Date 11/09/2021 11/09/2021 Inj-Img Wzcg72rkx. 60min. Rest Admin Site:IV - Right AntecubitalAdministrator:MOMO Bello Stress Admin Site: IV - Right AntecubitalAdministrator: MOMO Bello STRESS DATA End Diast. Vol.64.0mlAv. Heart Rate62.0bpm End Syst. Vol.8.0mlCO Index BSA3.5L/min Myocardial Plaz649.0gEject. Cylmgojl12.0% Stress Rates Pk. Fill Rate2.79EDV/secLVtime Pk. Fill 279.68msec Pk. Empty Rate4.32ESV/secLVtime Pk. Cusyx413.97msec 11/16 Pk. Fill0.75EDV/sec Stress Scores Regional WT0.00Summed WT0.00 Regional WM0.00Summed WM0.00 The rest and stress images show normal perfusion, normal contraction and thickening. LV Perf. Quant 17 Seg. SSS6.00 17 Seg. SRS6.00 17 Seg. SDS0.00 Stress Defect Extent (% LAD)0.00Rest Defect Extent (% LAD)0.00Rev. Defect Extent (% LAD)0.00 Stress Defect Extent (% LCX) 38.80Rest Defect Extent (% LCX)22.50Rev. Defect Extent (% LCX)1.30 Stress Defect Extent (% RCA)0.00Rest Defect Extent (% RCA)0.00Rev. Defect Extent (% RCA)0.00 Stress Defect Extent (% ENRIQUE)9.60Rest Defect Extent (% ENRIQUE)5.40Rev. Defect Extent (% ENRIQUE)0.70 Other Information Quality:Fair Risk Assessment: Low Risk Conclusion 1. No evidence of EKG changes with stress testing. 2. Normal perfusion at stress/rest. 3. Low risk study. 4. EF > 60%. Signed by : Andre Chapin, Electronically Approved : 11/09/2021 17:14:40
--- NOTE | 2021-11-10 17:58 | CARD ---
MR#: [id number] Date of Study: 11/09/2021 Ordering Physician: CED CARDENAS, Referring Physician: CED CARDENAS, Tech: Subha [place], [facility] APPROVED REPORT EXAM: Two-dimensional and M-mode echocardiogram with Doppler and color Doppler. Other Information Quality : AverageHR: 59bpm Technically limited study due to body habitus. INDICATION Cardiac Disease: CAD RISK FACTORS Hypertension Hyperlipidemia 2D DIMENSIONS Left Atrium(2D)3.2 (1.6-4.0cm)IVSd1.2 (0.7-1.1cm) Aortic Root(2D)3.4 (2.0-3.7cm)LVDd4.2 (3.9-5.9cm) LVOT Diameter2.1 (1.8-2.4cm)PWd1.1 (0.7-1.1cm) LVDs2.7 (2.5-4.0cm)FS (%) 37.0 % SV53.6 mlLVEF(%)67.3 (>50%) Aortic Valve AoV Peak Nito.135.5cm/sAoV VTI31.0cm AO Peak GR.7.3mmHgLVOT Peak Nito.102.7cm/s LVOT VTI 25.83cmAO Mean GR.4mmHg VITA (VMAX)1.63lf6NQZ (VTI)2.76cm2 Mitral Valve MV E Rcnuqczj61.1cm/sMV DECEL RLWG042ov MV A Mcczcoyy144.2cm/sMV E Mean Gr.3mmHg MV [id number]/A Ratio0.7 MVA (PHT)2.01cm2 TDI E/Lateral E'15.5E/Medial E'16.9 Pulmonary Valve PV Peak Xdgnxnyn62.1cm/sPV Peak Grad.4mmHg Tricuspid Valve TR P. Dokcjufq019xx/sRAP KHXUQMLK0tjSg TR Peak Gr.61jeJyFUBQ97ooKf Pulmonary Vein S1 Wkjhyxmw75.7cm/sD2 Sichejja67.2cm/s PVa zvxoggfr133sbyz LEFT VENTRICLE The left ventricle is normal size. There is borderline to mild concentric left ventricular hypertroph y. The left ventricular systolic function is normal and the ejection fraction is within normal range. The Ejection Fraction is 50-55%. There is normal LV segmental wall motion. Transmitral Doppler flow pattern is Grade I-abnormal relaxation pattern. RIGHT VENTRICLE The right ventricle is normal size. There is normal right ventricular wall thickness. The right ventr icular systolic function is normal. ATRIA The left atrium size is normal. The right atrium size is normal. The interatrial septum is intact wit h no evidence for an atrial septal defect or patent foramen ovale as noted on 2-D or Doppler imaging. AORTIC VALVE The aortic valve is calcified with restricted leaflet motion. Doppler and Color Flow revealed trace a ortic regurgitation. There is no significant aortic valvular stenosis. MITRAL VALVE The mitral valve is normal in structure and function. There is no evidence of mitral valve prolapse. There is no mitral valve stenosis. Doppler and Color-flow revealed trace to mild mitral regurgitation . TRICUSPID VALVE The tricuspid valve is normal in structure and function. Doppler and Color Flow revealed trace tricus pid regurgitation with an estimated PAP of 44 mmHg. There is no tricuspid valve stenosis. PULMONIC VALVE The pulmonic valve is not well visualized. Doppler and Color Flow revealed trace pulmonic valvular re gurgitation. There is no pulmonic valvular stenosis. GREAT VESSELS The aortic root is normal in size. The ascending aorta is Mildly dilated measuring 3.9 cm. The IVC is normal in size and collapses >50% with inspiration. PERICARDIAL EFFUSION There is no evidence of significant pericardial effusion. Critical Notification Critical Value: No <Conclusion> The left ventricular systolic function is normal and the ejection fraction is within normal range. Th e Ejection Fraction is 50-55%. There is normal LV segmental wall motion. Doppler and Color Flow revealed trace tricuspid regurgitation with an estimated PAP of 44 mmHg. The aortic valve is calcified with restricted leaflet motion. There is no significant aortic valvular stenosis. The ascending aorta is Mildly dilated measuring 3.9 cm. Signed by : Andre Chapin, Electronically Approved : 11/10/2021 17:57:18
== END ==
LOC: NM 09:43
PROVIDERS: ATTEND Internal Medicine Cardiovascular Disease
DX: I08.0 Rheumatic disorders of both mitral and aortic valves (principal); I77.819 Aortic ectasia, unspecified site; I25.10 Atherosclerotic heart disease of native coronary artery without angina pectoris
CPT/HCPCS: 78452; 93017; 93306; A9500; J2785

== ENCOUNTER → 2021-12-14 | Outpatient (CLI) | payer MEDICARE ==
[~2021-12-14] MED LIST changes: +LIDOCAINE 1% PF 5 ML VIAL. ONE; -REGADENOSON 0.4 MG/5 ML DISP.SYRIN. IV ONE
--- NOTE | 2021-12-14 15:35 | CARD ---
MR#: [id number] Date of Study: 12/14/2021 Ordering Physician: CED CARDENAS, Referring Physician: CED CARDENAS, Tech: Subha Westbrook RVT; Dave Leyva CDT APPROVED REPORT Patient StatusOUT-PATIENT Configuration Developer: Subha Westbrook RVT; Dave Leyva CDT Procedure(s) performed: Endovenous Venaseal ablation of the Right Accessory saphenous vein. INDICATION FOR PROCEDURE The indication(s) include : Symptomatic Chronic Venous Insufficiency with venous hypertension and inf lammation, Varicose Veins, lower extremity pain, edema and venous stasis ulcer.. PROCEDURE NARRATIVE After explaining the risks, benefits and alternative options, informed consent was obtained from dane ent. Patient was brought to the procedure suite and duplex ultrasound was used to map out the insuffi cient saphenous vein. The access site was determined and marked on the overlying skin. The depth and diameter of the vein (s) to be treated was documented. The patient was placed supine on the procedure table and the leg was prepped and draped using sterile technique. Ultrasound guidance was again used to localize the access site. 1% lidocaine was injected into the sk in and subcutaneous tissues for local anesthesia. Using ultrasound guidance, access was obtained in t he saphenous vein with a 19-gauge thin-walled needle followed by introduction of a short guidewire. T he intraluminal location was confirmed with ultrasound and a 7 Uzbek 7 cm sheath was inserted into t he vein. A 0.035 inch guidewire from the Venaseal kit was then introduced and positioned at the saphe nofemoral junction using ultrasound guidance. The 80 cm 7 Uzbek introducer sheath/dilator was positi oned 5 cm from the saphenofemoral junction. The guidewire and dilator were removed and the remaining sheath was flushed with sterile saline, with the syringe remaining in place prior to the next steps. The Cyanoacrylate adhesive was loaded into a 3 cc syringe that was then attached to the 5F delivery c athter and loaded on to the Dispenser gun.The catheter was primed precisely and this 'assembly' was i ntroduced through the 7 Uzbek sheath and positioned 5 cm caudal to the saphenofemoral junction under ultrasound guidance. While applying compression cephalad to the cathter tip with the ultrasound murphy sducer, 0.10 cc of the VenaSeal adhesive was delivered into the vein by pulling the trigger of the [employer] sary gun. The catheter was pulled back 1 cm and another 0.10 cc of the adhesive was delivered foll owing which the catheter was pulled back 3 cm. Compression was applied over the vein for 3 minutes. T he catheter tip position was confirmed again using the ultrasound, 0.10 cc Venaseal adhesive delivere d, catheter pulled back 3 cm and compression applied for 30 seconds. These steps were repeated to tr eat the entire length of the incompetent vein. Following the last injection and compression sequence, the catheter and introducer sheath were pulled out from the access site. Hemostasis was achieved with manual compression and an adhesive bandage wa s applied to the incision. Ultrasound confirmed complete coaptation and closure of the treated segmen ts of the greater saphenous vein, and the absence of any DVT at the saphenofemoral junction. Treated length was 10 cm. The drapes were removed and the patient cleaned and prepared for discharge. Patient tolerated the pro cedure well. There were no immediate complications. Postop ultrasound check scheduled for 48-72 hours and the patient was given written postop instructions. Signed by : Ced Cardenas, Electronically Approved : 12/14/2021 15:34:43
== END | disposition home or self-care (01) ==
LOC: EDSTATUS 12-07 12:58 → VNUS 13:41
PROVIDERS: ATTEND Internal Medicine Cardiovascular Disease
DX: I87.2 Venous insufficiency (chronic) (peripheral) (principal); I10 Essential (primary) hypertension; N40.0 Benign prostatic hyperplasia without lower urinary tract symptoms; I87.321 Chronic venous hypertension (idiopathic) with inflammation of right lower extremity; K21.9 Gastro-esophageal reflux disease without esophagitis; M19.90 Unspecified osteoarthritis, unspecified site; Z85.828 Personal history of other malignant neoplasm of skin; Z90.49 Acquired absence of other specified parts of digestive tract; Z79.899 Other long term (current) drug therapy; Z88.8 Allergy status to other drugs, medicaments and biological substances
CPT/HCPCS: 36482; J3490

== ENCOUNTER → 2021-12-15 | Outpatient (CLI) | payer MEDICARE ==
--- NOTE | 2021-12-15 14:56 | CARD ---
MR#: [id number] Date of Study: 12/15/2021 Ordering Physician: CED INGRAM, Referring Physician: CED INGRAM, Tech: Subha Westbrook RVT; Dave Leyva CDT APPROVED REPORT Patient StatusOUT-PATIENT Snuff Box Finisher: Subha Westbrook RVT; Dave Leyva CDT Procedure(s) performed: Endovenous Venaseal ablation of the Right lesser saphenous vein INDICATION FOR PROCEDURE The indication(s) include : Symptomatic Chronic Venous Insufficiency with inflammation, venous hypert ension, varicose Veins, lower extremity pain, venous stasis ulcer and edema. PROCEDURE NARRATIVE After explaining the risks, benefits and alternative options, informed consent was obtained from dane ent. Patient was brought to the procedure suite and duplex ultrasound was used to map out the insuffi cient saphenous vein. The access site was determined and marked on the overlying skin. The depth and diameter of the vein (s) to be treated was documented. The patient was placed prone on the procedure table and the leg was prepped and draped using sterile technique. Ultrasound guidance was again used to localize the access site. 1% lidocaine was injected into the sk in and subcutaneous tissues for local anesthesia. Using ultrasound guidance, access was obtained in t he saphenous vein with a 19-gauge thin-walled needle followed by introduction of a short guidewire. T he intraluminal location was confirmed with ultrasound and a 7 Lao 7 cm sheath was inserted into t he vein. A 0.035 inch guidewire from the Venaseal kit was then introduced and positioned at the saphe nopopliteal junction using ultrasound guidance. The 80 cm 7 Lao introducer sheath/dilator was posi tioned 5 cm from the saphenopopliteal junction. The guidewire and dilator were removed and the remain ing sheath was flushed with sterile saline, with the syringe remaining in place prior to the next claude ps. The Cyanoacrylate adhesive was loaded into a 3 cc syringe that was then attached to the 5F delivery c athter and loaded on to the Dispenser gun.The catheter was primed precisely and this 'assembly' was i ntroduced through the 7 Lao sheath and positioned 5 cm caudal to the saphenopopliteal junction und er ultrasound guidance. While applying compression cephalad to the cathter tip with the ultrasound tr ansducer, 0.10 cc of the VenaSeal adhesive was delivered into the vein by pulling the trigger of the dispenser gun. The catheter was pulled back 1 cm and another 0.10 cc of the adhesive was delivered fo llowing which the catheter was pulled back 3 cm. Compression was applied over the vein for 3 minutes. The catheter tip position was confirmed again using the ultrasound, 0.10 cc Venaseal adhesive delive red, catheter pulled back 3 cm and compression applied for 30 seconds. These steps were repeated to treat the entire length of the incompetent vein. Following the last injection and compression sequence, the catheter and introducer sheath were pulled out from the access site. Hemostasis was achieved with manual compression and an adhesive bandage wa s applied to the incision. Ultrasound confirmed complete coaptation and closure of the treated segmen ts of the lesser saphenous vein, and the absence of any DVT at the saphenopopliteal junction. Treate d length was 27 cm. The drapes were removed and the patient cleaned and prepared for discharge. Patient tolerated the pro cedure well. There were no immediate complications. Postop ultrasound check scheduled for 48-72 hours and the patient was given written postop instructions. Signed by : Ced Ingram, Electronically Approved : 12/15/2021 14:55:47
== END | disposition home or self-care (01) ==
LOC: VNUS 13:47
PROVIDERS: ATTEND Internal Medicine Cardiovascular Disease
DX: I87.2 Venous insufficiency (chronic) (peripheral) (principal); I10 Essential (primary) hypertension; M79.604 Pain in right leg; K21.9 Gastro-esophageal reflux disease without esophagitis; M19.90 Unspecified osteoarthritis, unspecified site; I87.321 Chronic venous hypertension (idiopathic) with inflammation of right lower extremity; N40.0 Benign prostatic hyperplasia without lower urinary tract symptoms; Z85.828 Personal history of other malignant neoplasm of skin; Z90.49 Acquired absence of other specified parts of digestive tract; Z98.890 Other specified postprocedural states; Z79.899 Other long term (current) drug therapy; Z88.8 Allergy status to other drugs, medicaments and biological substances
CPT/HCPCS: 36482; J3490

== ENCOUNTER → 2021-12-18 | Outpatient (CLI) | payer MEDICARE ==
[~2021-12-18] MED LIST changes: -LIDOCAINE 1% PF 5 ML VIAL. ONE
--- NOTE | 2021-12-18 12:27 | RAD ---
MR#: [id number] Date of Study: 12/18/2021 Ordering Physician: CED INGRAM, Referring Physician: CED INGRAM, Tech: Subha Westbrook RDMS, RVT, RTR APPROVED REPORT Right Lower Extremity Venous Study for DVT Patient Location: OUT-PATIENT Indications Stasis Disease Post Op Right GSv and SSV ablation Findings Grayscale images, spectral waveform and color duplex analysis of right accessory saphenous and lesser saphenous veins showed successfully occluded veins without any thrombus at the saphenofemoral or sap henopopliteal junction. Nonoccluding chronic deep venous thrombosis was noted in common femoral vein extending all the way to the popliteal vein. This is similar in appearance to prior venous duplex s can from 10/15/21. Critical Notification Critical Value: No <Conclusion> Venous duplex scan right lower extremity showed successfully ablated right accessory saphenous and le sser saphenous veins. Chronic DVT noted i extending from common femoral to popliteal vein, similar i n appearance compared to prior ultrasound from 10/15/21. Signed by : Ced Ingram, Electronically Approved : 12/18/2021 12:27:20
== END ==
LOC: US 11:10
PROVIDERS: ATTEND Internal Medicine Cardiovascular Disease
DX: I82.501 Chronic embolism and thrombosis of unspecified deep veins of right lower extremity (principal); I87.321 Chronic venous hypertension (idiopathic) with inflammation of right lower extremity
CPT/HCPCS: 93971

== ENCOUNTER → 2022-03-11 | Outpatient (CLI) | payer MEDICARE ==
[2022-02-08 15:00] VITALS: BP 141/80
[~2022-03-11] MED LIST changes: +ASPI-630 PO; +ATOR20TA58 PO; +BIOT5000 PO; +CEPH500C PO; +DOXY100T PO; +FOCUS FACTOR PO; +POTA-112 PO; +TRIA15OI TP; +TUMERIC PO; +[UNRECOGNIZED DRUG - OTHER]
--- NOTE | 2022-03-11 17:03 | PDOC1 ---
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 This is worse with elevating his feet and it is disturbing sleep significantly. Patient reports he will feel fairly well during the day but when he elevates his foot and especially when he gets into bed the pain will become significant where he has to get up and start walking around once he gets up and puts weight on the foot and walks for a few seconds the pain decreases significantly patient reports he gets back to sleep and about 30 minutes later the same thing happens. Patient reports he is up all night about every 30 minutes on and off because of the pain patient reports he does not affect his bowel bladder control does not affect his motor function of the lower extremity but does affect his ability to walk significantly when the pain is at its worst. Patient reports he is taking hydrocodone and tramadol also gabapentin all of which do help the pain only by about 50% at the most patient reports pain is sharp and stabbing intermittent intensity radiating from the ankle anteriorly into the heel at times into the medial malleolus of the right ankle as well and again worse at night disturbing sleep. Patient rates her disability rating 0-10 10 being the worst is a 6 at home responsibilities 5 social activity 10 with by support activities specially sleeping. Patient has been through wound care and continues to see marine cargo specialist for the wound maintenance also did have a duplex of the arterial system of the right ankle and foot with abnormal right lower extremity duplex with hemodynamically significant right popliteal artery stenosis and monophasic flow throughout the runoff vessels. Interventional radiologist recommending potential reconstruction and/or surgical planning. Patient reports he has not made this referral yet we will facilitate getting this scheduled. PAST MEDICAL HISTORY: PMH: Hypertension, arthritis, nonhealing and poorly healing wound on the right lower extremity as well as lymphoma PREVIOUS SURGERIES: Past Surgical Hx: Rotator cuff repair x2, hernia repair x2, resection of the hip and tibia, skin cancer removal, bladder surgery CURRENT MEDICATIONS: Current Meds: Active Scripts Medications Dose Route/Sig Max Daily Dose Days Date Category Dose Instructions Hydrocodone-Apap 5-325 (Hydrocodone Bit/Acetaminophen) 1 Tab Tablet 1 Tab PO PRN Q6HRS PRN 7 03/02/22 Rx Tramadol Hcl 50 Mg Tablet 50 Mg PO PRN Q6HRS PRN 6 02/08/22 Rx [Focus Factor] 2 Tab PO DAILY 02/03/22 Reported Biotin 5,000 Mcg Tab.rapdis 5,000 Mcg PO DAILY 02/03/22 Reported L-Lysine (Lysine) 500 Mg Tablet 500 Mg PO DAILY 02/03/22 Reported [Tumeric ] 500 Mg PO DAILY 02/03/22 Reported Triamcinolone Acetonide 0.1% Oint (Triamcinolone Acetonide) 15 Gm Oint...g. 1 Hannah TP PRN BID PRN 02/03/22 Reported MIX WITH EUCERIN DIRECTED BY PHYSICIAN Furosemide 40 Mg Tablet 1 Tab PO PRN DAILY PRN 02/03/22 Reported Aspirin 81 Mg Tab.chew 1 Tab PO DAILY 02/03/22 Reported Atorvastatin Calcium 20 Mg Tablet 1 Tab PO DAILY 02/03/22 Reported Isosorbide Mononitrate Er (Isosorbide Mononitrate) 30 Mg Tab.er.24h 30 Mg PO DAILY 01/20/16 Rx Ginkgo Biloba (Ginkgo Biloba Extract) 120 Mg Capsule 120 Mg PO DAILY 01/13/16 Reported Calcium + Vit D & K Chew Tab (Ca Carbonate/Vitamin D3/Vit K) 1 Each Tab.chew 1 Each PO DAILY 01/13/16 Reported Vitamin C (Ascorbic Acid) 1,000 Mg Tablet 1,000 Mg PO DAILY 01/13/16 Reported Vitamin E (Vitamin E (Dl,Tocopheryl Acet)) 400 Unit Capsule 400 Unit PO DAILY 01/13/16 Reported Vitamin B Complex 1 Each Capsule 1 Each PO DAILY 01/13/16 Reported Glucosamine Chondroitin Cap (Glucosamine/Chondroitin Sulf A) 1 Each Capsule 1 Each PO DAILY 01/13/16 Reported Bonner-3 Krill Oil Softgel (Krill Oil/Bonner-3/Dha/Epa) 1 Each Capsule 1 Each PO DAILY 01/13/16 Reported Vitamin D3 (Cholecalciferol (Vitamin D3)) 400 Unit Tablet 400 Unit PO 06/02/15 Reported Multivitamins (Multivitamin) 1 Each Tablet 1 Each PO DAILY 06/02/15 Reported ALLERGIES; Allergies: Coded Allergies: No Known Drug Allergies (Unverified , 02/03/22) FAMILY HISTORY: Family Hx: No major medical problems or conditions that he is aware of. SOCIAL HISTORY: Social Hx: Patient does not sergio alcohol does not smoke says any illegal illicit recreational drugs is lives with his spouse lives locally in [facility] and is currently retired. REVIEW OF SYSTEMS: ROS: Positive for those items mentioned in history of present illness, all systems are reviewed, otherwise negative ,and are complete full and well-documented [facility]. PHYSICAL EXAM: VS: Blood pressure is 124/67 pulse 58 respirations 18 temperature 97.7 F height is 6 foot 0 inches weight is 2 1 9 pounds. PE: PHYSICAL EXAMINATION: GENERAL: The patient is awake, alert, oriented, appropriate, very pleasant in demeanor, patient accompanied by his . HEENT: Shows normocephalic, atraumatic. Extraocular movements are intact and symmetrical. Oral cavity: Mucous membranes moist and pink. NECK: Shows anterior throat supple without palpable lymphadenopathy noted. Swallow reflex symmetrical. CHEST: Shows normal on inspection. Breath sounds are clear bilaterally. HEART: Shows S1, S2 clear. No murmurs auscultated. ABDOMEN: Soft, nontender, nondistended. No palpable organomegaly is noted. BACK: Shows spine grossly in the midline. Normal-appearing cervical lordotic curvature. There is slightly increased thoracic kyphosis, some minor flattening of the lumbar lordotic curvature. Lumbar paraspinous muscles show symmetrical on inspection, on palpation shows some moderate tenderness diffusely throughout the upper, middle and lower distribution of the paraspinous muscles bilaterally and also into the lower thoracic paraspinous musculature, firm and tender, but without specific trigger points, without radiation of pain. The patient has good rotational motion of the lumbar spine, both laterally as well as extension and flexion without significant difficulty. No tenderness over the spinous processes, sacrum or sacroiliac regions. EXTREMITIES: Lower extremities show deep tendon reflexes 2+ in the patellar and tendo calcaneus tendons. Motor exam is 5 on a scale of 5 with right dorsiflexion, extension, quadriceps and hamstring flexion and 5/5 on the left. Peripheral pulses are 1+ posterior tibial. No peripheral edema is noted bilaterally. Patient shows significant discoloration and dark pigmentation on the anterior and lateral aspect of the right tibia with well-healed surgical scarring noted also weeping wound on the medial aspect of the superior malleolus on the right ankle. Patient shows significant tenderness with palpation over the medial malleolus as well as the anterior aspect of the superior ankle and into the distal tibia anteriorly without radiation. SKIN: Shows warm and dry, good turgor. No edema. No sores, rashes or bruising throughout. IMPRESSION: Impression: 81-year-old male with long history of right lower extremity pain status post ischemic change and poor healing after lymphoma of the tibia with radiation treatment. Duplex ultrasound with hemodynamically significant right popliteal artery stenosis monophasic flow as noted Hypertension Arthritis Plan: Options were discussed with the patient including conservative managements as well as physical therapies, and follow-up with interventional radiology regarding popliteal arterial stenosis. We will make arrangements to follow-up with interventional radiology as requested also will add Lidoderm patch to the anterior ankle and medial ankle every 12 hours as necessary. Patient to follow- up after interventional radiology evaluation. GERALD LENZ MD Mar 11, 2022 17:03
== END | disposition home or self-care (01) ==
LOC: PNCL 12:46
PROVIDERS: ATTEND Anesthesiology
DX: M79.604 Pain in right leg (principal); I10 Essential (primary) hypertension; M19.90 Unspecified osteoarthritis, unspecified site; K21.9 Gastro-esophageal reflux disease without esophagitis; Z85.828 Personal history of other malignant neoplasm of skin; Z79.899 Other long term (current) drug therapy; Z98.890 Other specified postprocedural states
CPT/HCPCS: 99214; G0463

== ENCOUNTER 2022-03-23 08:02 | Outpatient (CLI) | payer MEDICARE ==
[~2022-03-23] VITALS: Ht 182.9 cm; Wt 97.7 kg
[2022-03-23] VITALS (13 sets, daily range): BP systolic 103–163; BP diastolic 61–82
[2022-03-23] MEDS ORDERED: Vitamin D3 PO (09:03)
[2022-03-23] MEDS ORDERED: HYDR-2769 PO (09:03)
[2022-03-23] MEDS ORDERED: POTA10TA12 PO (09:03)
[2022-03-23] MEDS ORDERED: CYAN50009 PO (09:03)
[2022-03-23] MEDS ORDERED: ATEN1TAB3 PO (09:03)
[2022-03-23] MEDS ORDERED: HEPARIN for IV BOLUS 10,000 UNIT/10 ML VIAL. ONE (09:19)
[2022-03-23] MEDS ORDERED: MIDAZOLAM HCL/PF 2 MG/2 ML VIAL. ONE (09:19)
[2022-03-23] MEDS ORDERED: fentaNYL PF VIAL 100 MCG/2 ML VIAL ONE (09:19)
[2022-03-23] MEDS ORDERED: LIDOCAINE WITH 8.4% SOD BICARB 3 ML DISP.SYRIN. ONE ×2 (09:40→09:53)
[2022-03-23] MEDS ORDERED: IODIXANOL 320 MG/ML 50ML VIAL. ONE ×2 (09:40→10:40)
[2022-03-23 09:54] LABS: BASO # 0.1 x10^3/uL (0.0-0.2); BASO % 1 % (0-3); EOS # 0.4 x10^3/uL (0.0-0.7); EOS % 5 % (0-3); HEMATOCRIT 44.6 % (39.0-53.0); LYMPH # 1.7 x10^3/uL (1.0-4.8); LYMPH % 20 % (24-48); MEAN CORPUSCULAR HEMOGLOBIN 31 pg (25-35); MEAN CORPUSCULAR HGB CONC 34 g/dL (31-37); MEAN CORPUSCULAR VOLUME 92 fL (79-100); MONO # 1.1 x10^3/uL (0.0-1.1); MONO % 14 % (0-9); NEUT # 4.8 x10^3/uL (1.8-7.7); NEUT % 60 % (31-73); PLATELET COUNT 198 x10^3/uL (140-400); RED BLOOD COUNT 4.86 x10^6/uL (4.30-5.70); RED CELL DISTRIBUTION WIDTH 13.8 % (11.5-14.5); WHITE BLOOD COUNT 8.1 x10^3/uL (4.0-11.0)
[2022-03-23 09:58] LABS: CALCIUM 8.7 mg/dL (8.5-10.1); CREATININE 1.1 mg/dL (0.7-1.3); GFR 64.1; POTASSIUM 3.7 mmol/L (3.5-5.1)
[2022-03-23] MEDS ORDERED: fentaNYL PF VIAL 100 MCG/2 ML VIAL IV ONE (10:00)
[2022-03-23] MEDS ORDERED: LIDOCAINE WITH 8.4% SOD BICARB 3 ML DISP.SYRIN. IJ ONE (10:00)
[2022-03-23] MEDS ORDERED: IODIXANOL 320 MG/ML 50ML VIAL. IART ONE (10:00)
[2022-03-23] MEDS ORDERED: MIDAZOLAM HCL/PF 2 MG/2 ML VIAL. IV ONE (10:00)
[2022-03-23 10:05] LABS: PROTHROMBIN TIME PATIENT 14.3 SEC (11.7-14.0)
[2022-03-23] MEDS ORDERED: NITROGLYCERIN 200 MCG/2 ML SYRINGE FOR CATH/VASC LAB. ONE ×2 (10:45→12:18)
[2022-03-23] MEDS ORDERED: HEPARIN for IV BOLUS 10,000 UNIT/10 ML VIAL. IV ONE (10:45)
[2022-03-23] MEDS ORDERED: NITROGLYCERIN 200 MCG/2 ML SYRINGE FOR CATH/VASC LAB. IART ONE (10:45)
[2022-03-23] MEDS ORDERED: CLOPIDOGREL BISULFATE 75 MG TABLET ONE (11:40)
[2022-03-23] MEDS ORDERED: ASPIRIN 325 MG TABLET ONE (11:40)
[2022-03-23] MEDS ORDERED: ASPIRIN 325 MG TABLET PO ONE (11:45)
[2022-03-23] MEDS ORDERED: CLOPIDOGREL BISULFATE 75 MG TABLET PO ONE (11:45)
[2022-03-23] MEDS ORDERED: HYDROcodone/APAP 5/325MG 1 TAB TABLET ONE (14:32)
[2022-03-23] MEDS: HYDROcodone/APAP 5/325MG 1 TAB TABLET PO PRN ×2 (15:00→15:30)
[2022-03-23] MEDS ORDERED: CLOP75TA PO (15:09)
--- NOTE | 2022-03-23 15:45 | NUR ---
Discharge Note: [facility] Discharge instructions and discharge home medications reviewed with Patient and spouse and a copy given. All questions have been answered and understanding verbalized. Dressing to R ankle replaced.
--- NOTE | 2022-03-24 09:50 | RAD ---
PROCEDURE: Ultrasound-guided puncture of the left WOOD DIE MAKER (CPT 48342) Catheter placement right SFA (39113) right lower extremity run off (08374 unilateral Angioplasty: Popliteal and posterior tibial arteries (80781, 63214) Moderate sedation (CPT fill) INDICATION: Right leg the wound near the level of the ankle. The patient has had the an angiogram wit h intervention on February 04, 2022. That there is a minimal improvement in the ulcer and the patient huang s had an abnormal follow-up Doppler ultrasound after the prior exam. The patient presents today for d iagnostic angiogram to reevaluate the right lower extremity arteries with possible intervention if in dicated. Flouroscopy-Radiation exposure: Kerma Air Product (in mGycm2): 29 Contrast: 45 mL Isovue-300. SEDATION: Under physician supervision, Versed and fentanyl were administered intravenously for moder ate sedation. Pulse oximetry, heart rate, and BP were continuously monitored by a dedicated qualifie d nurse. The physician spent 120 minutes of [id number] sedation time with the patient. Current history and physical and other medical records are reviewed prior to the procedure. CONSENT: Informed consent was obtained. The risks, benefits, potential complications and alternatives were reviewed and all questions answered. Estimated blood loss: 30 ml PROCEDURE: After maximal sterile barrier technique preparation and draping, 1% lidocaine was utilized for local anesthesia. Ultrasound evaluation for potential access sites performed. There is a patent left WOOD DIE MAKER. This is pedro med suitable for access and a ultrasound-guided puncture was performed utilizing a micropuncture kit. Ultrasound image documentation saved in the patient's records. A 6-Nicaraguan sheath is introduced. Subsequently a 5-Nicaraguan contra flush catheter is introduced advanced over a wire into the abdominal a pepper and then used to access to the right iliac arteries. The catheter is further advanced into the r ight SFA. From this position a selective angiogram of the right lower extremity is performed. Angiogram findings: SFA: no significant stenosis Popliteal: Mild stenosis proximally and 70 percent focal stenosis distally AT: Occluded Peroneal: no significant stenosis PT: Multifocal severe stenosis in the proximal to mid segment Catheter is then advanced into the posterior tibial artery and angiogram confirms good position cross ing the lesion. The distal the PROPAGATION WORKER is patent. Intervention: The 6-Nicaraguan access sheath was exchanged over a wire with a long 6-Nicaraguan destination sheath with the tip positioned in the right SFA artery. Subsequently 3 mm x 200 balloon is advanced into the cleaning manager ior tibial artery and angioplasty is performed. Follow-up angiogram demonstrate persistent areas of s tenosis and repeat angioplasty, prolonged is performed again with follow-up angiogram demonstrating b drea results. Subsequently a 4 mm balloon is introduced into the popliteal artery and angioplasty is performed to t reat the distal popliteal artery focal stenosis. Follow-up angiogram demonstrates improvement in the flow with no residual significant stenosis. Following that the catheters and wires were withdrawn and the left WOOD DIE MAKER arteriotomy was closed utiliz ing Perclose closure device successfully achieving hemostasis. The patient tolerated the procedure well with no immediate complications. IMPRESSION: 1. Recurrence of stenosis in the right posterior tibial artery treated with angioplasty with good re sults. 2. A 70 percent focal stenosis of the distal popliteal artery treated with angioplasty with good resu lts. 3. 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 The peroneal artery is patent to the ankle with collaterals to the dorsalis pedis artery. 4. The patient has probably venous insufficiency component as well contributing to the nonhealing wou nd. PLAN/RECOMMENDATIONS: The patient is a started on aspirin and Plavix. Continued dual antiplatelet therapy for 3 to 6 months is recommended if can be tolerated then daily baby aspirin. Electronically signed by: Joni Wallace MD (03/24/2022 9:47 AM) [id number]
[2022-04-20] MEDS ORDERED: TRAM50TA PO (13:07)
== END 2022-03-23 16:02 | disposition home or self-care (01) ==
LOC: INTRAD 08:02
PROVIDERS: ATTEND Emergency Medicine Undersea and Hyperbaric Medicine
DX: I73.9 Peripheral vascular disease, unspecified (principal); I10 Essential (primary) hypertension; K21.9 Gastro-esophageal reflux disease without esophagitis; N40.0 Benign prostatic hyperplasia without lower urinary tract symptoms; M19.90 Unspecified osteoarthritis, unspecified site; Z85.828 Personal history of other malignant neoplasm of skin; Z79.899 Other long term (current) drug therapy; Z98.890 Other specified postprocedural states; Z79.82 Long term (current) use of aspirin
CPT/HCPCS: 36415; 37224; 37228; 75710; 76937; 80048; 85025; 85610; 99152; 99153; C1713; C1760; C1769; C1894; G0269; J1644; J2250; J3010; J3490; Q9967